=== PATIENT | male | born 1960 | race Asian ===

== ENCOUNTER → 2016-06-05 | Outpatient (CLI) | payer BC ==
[~2016-06-05] MED LIST: ACYC800T57 PO; CELE100C85 PO; FEXO1TAB; FLUC150T17 PO; IBUP-1542 PO; PRED20TA PO; ZOLP10TA PO
[2016-06-05 08:13] LABS: ADD SCAN DIFF NO
[2016-06-05 08:22] LABS: ABNORMAL IP MESSAGE 1; HEMATOCRIT 36.3 % (42.0-52.0); LYMPHOCYTES # 0.4 10^3/ul (0.8-2.9); LYMPHOCYTES % 14.3 % (15.0-51.0); MEAN CORPUSCULAR HEMOGLOBIN 29.9 pg (29.0-33.0); MEAN CORPUSCULAR HGB CONC 33.1 g/dl (32.0-37.0); MEAN CORPUSCULAR VOLUME 90.5 fl (82.0-101.0); MEAN PLATELET VOLUME 8.6 fl (7.4-10.4); MONOCYTE # 0.2 10^3/ul (0.3-0.9); MONOCYTES % 8.9 % (0.0-11.0); NEUTROPHIL # 1.9 10^3/ul (1.6-7.5); NEUTROPHILS % 74.9 % (39.0-77.0); PLATELET COUNT 176 10^3/UL (140-415); RED BLOOD COUNT 4.01 10^6/ul (4.70-6.10); RED CELL DISTRIBUTION WIDTH 13.9 % (11.5-14.5); WHITE BLOOD COUNT 2.6 10^3/ul (4.8-10.8)
[2016-06-05 21:17] LABS: COMPLEMENT C3 43 mg/dl (88-165)
[2016-06-05 21:18] LABS: COMPLEMENT C4 16 mg/dl (14-44)
== END | disposition home or self-care (01) ==
LOC: LAB 07:56
PROVIDERS: ATTEND Internal Medicine Rheumatology
DX: M32.9 Systemic lupus erythematosus, unspecified (principal)
CPT/HCPCS: 85025; 86160; 86226

== ENCOUNTER → 2016-06-13 | Outpatient (CLI) | payer BC ==
[2016-06-13 08:23] LABS: ADD SCAN DIFF NO
[2016-06-13 08:27] LABS: ABNORMAL IP MESSAGE 1; HEMATOCRIT 35.7 % (42.0-52.0); HEMOGLOBIN 11.5 g/dl (14.0-18.0); LYMPHOCYTES # 0.4 10^3/ul (0.8-2.9); MEAN CORPUSCULAR HEMOGLOBIN 28.9 pg (29.0-33.0); MEAN CORPUSCULAR HGB CONC 32.2 g/dl (32.0-37.0); MEAN CORPUSCULAR VOLUME 89.7 fl (82.0-101.0); MONOCYTE # 0.3 10^3/ul (0.3-0.9); MONOCYTES % 13.2 % (0.0-11.0); NEUTROPHIL # 1.3 10^3/ul (1.6-7.5); NEUTROPHILS % 64.4 % (39.0-77.0); PLATELET COUNT 183 10^3/UL (140-415); RED BLOOD COUNT 3.98 10^6/ul (4.70-6.10); RED CELL DISTRIBUTION WIDTH 14.2 % (11.5-14.5); WHITE BLOOD COUNT 2.1 10^3/ul (4.8-10.8)
[2016-06-13 08:30] LABS: ADD UMIC YES; URINE BILIRUBIN (Dip) NEGATIVE (NEGATIVE); URINE BLOOD (Dip) 2+ (NEGATIVE); URINE COLOR LT. YELLOW (YELLOW); URINE GLUCOSE (Dip) NEGATIVE (NEGATIVE); URINE KETONES (Dip) NEGATIVE (NEGATIVE); URINE LEUKOCYTE ESTERASE (Dip) NEGATIVE (NEGATIVE); URINE NITRITE (Dip) NEGATIVE (NEGATIVE); URINE TOTAL PROTEIN (Dip) 2+ (NEGATIVE); URINE UROBILINOGEN (Dip) 0.2 E.U./dL (0.1-1.0)
[2016-06-13 08:51] LABS: BACTERIA,URINE FEW
[2016-06-13 09:37] LABS: CHLORIDE 106 mmol/L (97-110)
[2016-06-13 09:38] LABS: POTASSIUM 4.4 mmol/L (3.5-5.1); SODIUM 142 mmol/L (135-144)
[2016-06-13 09:40] LABS: ALBUMIN/GLOBULIN RATIO 1.07; ALKALINE PHOSPHATASE 93 IU/L (42-121); ANION GAP 11 (8-16); ASPARTATE AMINO TRANSFERASE 45 IU/L (15-46); BILIRUBIN,INDIRECT 0.2 mg/dl (0-1.1); BILIRUBIN,TOTAL 0.2 mg/dl (0.2-1.3); CARBON DIOXIDE 29 mmol/L (21-31); CREATININE 0.93 mg/dl (0.61-1.24); TOTAL PROTEIN 5.8 g/dl (6.1-8.1)
[2016-06-13 09:41] LABS: ALANINE AMINOTRANSFERASE 62 IU/L (13-69); BLOOD UREA NITROGEN 19 mg/dl (7-20); CALCIUM 8.5 mg/dl (8.4-10.2); GLUCOSE 82 mg/dl (70-220)
[2016-06-13 10:50] LABS: COMPLEMENT C3 41 mg/dl (88-165)
[2016-06-13 10:51] LABS: COMPLEMENT C4 17 mg/dl (14-44)
[2016-06-14 13:14] LABS: SCRET 0.93 mg/dl (0.61-1.24)
== END | disposition home or self-care (01) ==
LOC: LAB 07:43
PROVIDERS: ATTEND Specialist
DX: M32.9 Systemic lupus erythematosus, unspecified (principal)
CPT/HCPCS: 80053; 81001; 81003; 82575; 83036; 84156; 84443; 85025; 85613; 85651; 86038; 86140; 86160; 86430; 86803; 87340

== ENCOUNTER → 2016-07-28 | Outpatient (CLI) | payer BC ==
[2016-07-28 07:57] LABS: ADD SCAN DIFF NO
[2016-07-28 08:17] LABS: ABNORMAL IP MESSAGE 1; HEMATOCRIT 32.3 % (42.0-52.0); HEMOGLOBIN 10.5 g/dl (14.0-18.0); LYMPHOCYTES # 0.3 10^3/ul (0.8-2.9); LYMPHOCYTES % 12.2 % (15.0-51.0); MEAN CORPUSCULAR HEMOGLOBIN 30.2 pg (29.0-33.0); MEAN CORPUSCULAR HGB CONC 32.5 g/dl (32.0-37.0); MEAN CORPUSCULAR VOLUME 92.8 fl (82.0-101.0); MEAN PLATELET VOLUME 9.5 fl (7.4-10.4); MONOCYTE # 0.2 10^3/ul (0.3-0.9); MONOCYTES % 6.1 % (0.0-11.0); NEUTROPHIL # 2.1 10^3/ul (1.6-7.5); PLATELET COUNT 156 10^3/UL (140-415); RED BLOOD COUNT 3.48 10^6/ul (4.70-6.10); RED CELL DISTRIBUTION WIDTH 14.7 % (11.5-14.5); WHITE BLOOD COUNT 2.8 10^3/ul (4.8-10.8)
[2016-07-28 08:24] LABS: ALBUMIN 2.7 g/dl (3.3-4.9)
[2016-07-28 08:25] LABS: POTASSIUM 3.5 mmol/L (3.5-5.1)
[2016-07-28 08:27] LABS: BILIRUBIN,INDIRECT 0.2 mg/dl (0-1.1); BILIRUBIN,TOTAL 0.2 mg/dl (0.2-1.3); CREATININE 0.78 mg/dl (0.61-1.24)
[2016-07-28 08:28] LABS: ALBUMIN/GLOBULIN RATIO 0.87; CALCIUM 8.3 mg/dl (8.4-10.2); TOTAL PROTEIN 5.8 g/dl (6.1-8.1)
[2016-07-28 08:30] LABS: C-REACTIVE PROTEIN 0.6 mg/dl (0.0-0.9)
[2016-07-28 08:35] LABS: ADD UMIC YES; URINE BILIRUBIN (Dip) NEGATIVE (NEGATIVE); URINE BLOOD (Dip) 2+ (NEGATIVE); URINE COLOR LT. YELLOW (YELLOW); URINE GLUCOSE (Dip) NEGATIVE (NEGATIVE); URINE KETONES (Dip) NEGATIVE (NEGATIVE); URINE LEUKOCYTE ESTERASE (Dip) NEGATIVE (NEGATIVE); URINE NITRITE (Dip) NEGATIVE (NEGATIVE); URINE TOTAL PROTEIN (Dip) 2+ (NEGATIVE); URINE UROBILINOGEN (Dip) 0.2 E.U./dL (0.1-1.0)
== END | disposition home or self-care (01) ==
LOC: LAB 07:33
PROVIDERS: ATTEND Specialist
DX: M32.9 Systemic lupus erythematosus, unspecified (principal)
CPT/HCPCS: 80053; 81001; 81003; 85025; 85651; 86140

== ENCOUNTER 2016-08-10 13:47 | Inpatient (IN) | payer BC ==
[~2016-08-10] VITALS: Ht 165.1 cm; Wt 68.5 kg
[2016-08-10] MEDS ORDERED: SODIUM CHLORIDE 0.9% 1L BAG IV* STA (15:06)
[2016-08-10] MEDS ORDERED: ACETAMINOPHEN 500 MG TAB PO STA (15:06)
[2016-08-10 15:39] LABS: ADD SCAN DIFF NO
[2016-08-10 15:44] LABS: ABNORMAL IP MESSAGE 1; HEMATOCRIT 29.8 % (42.0-52.0); HEMOGLOBIN 9.8 g/dl (14.0-18.0); MEAN CORPUSCULAR HEMOGLOBIN 30.2 pg (29.0-33.0); MEAN CORPUSCULAR HGB CONC 32.9 g/dl (32.0-37.0); MEAN CORPUSCULAR VOLUME 91.7 fl (82.0-101.0); PLATELET COUNT 135 10^3/UL (140-415); RED BLOOD COUNT 3.25 10^6/ul (4.70-6.10); RED CELL DISTRIBUTION WIDTH 14.5 % (11.5-14.5)
[2016-08-10 15:54] LABS: ADD UMIC YES; URINE BILIRUBIN (Dip) NEGATIVE (NEGATIVE); URINE BLOOD (Dip) 3+ (NEGATIVE); URINE COLOR LT. YELLOW (YELLOW); URINE GLUCOSE (Dip) NEGATIVE (NEGATIVE); URINE KETONES (Dip) NEGATIVE (NEGATIVE); URINE LEUKOCYTE ESTERASE (Dip) NEGATIVE (NEGATIVE); URINE NITRITE (Dip) NEGATIVE (NEGATIVE); URINE TOTAL PROTEIN (Dip) 4+ (NEGATIVE); URINE UROBILINOGEN (Dip) 0.2 E.U./dL (0.1-1.0)
[2016-08-10 16:00] LABS: INR 0.85; PROTIME 11.6 Sec (12.2-14.2); PT RATIO 0.9
[2016-08-10 16:01] LABS: ALBUMIN 2.6 g/dl (3.3-4.9); PARTIAL THROMBOPLASTIN TIME 34.5 Sec (25.0-35.0); POTASSIUM 3.7 mmol/L (3.5-5.1)
[2016-08-10 16:03] LABS: CREATININE 0.93 mg/dl (0.61-1.24)
[2016-08-10 16:04] LABS: ALBUMIN/GLOBULIN RATIO 0.76; BILIRUBIN,INDIRECT 0.3 mg/dl (0-1.1); BILIRUBIN,TOTAL 0.3 mg/dl (0.2-1.3)
[2016-08-10 16:05] LABS: CALCIUM 8.1 mg/dl (8.4-10.2)
[2016-08-10 16:15] LABS: TROPONIN-I 0.015 ng/ml (0.00-0.12)
[2016-08-10 16:17] LABS: BACTERIA,URINE FEW; TRANSITIONAL EPI CELLS,URINE FEW
--- NOTE | 2016-08-10 16:25 | RADRPT ---
PROCEDURE: XR Chest. CLINICAL INDICATION: Sepsis TECHNIQUE: A single AP view of the chest was obtained. COMPARISON: None. FINDINGS: There is a small left pleural effusion with left basilar interstitial opacities. No pneumothorax is seen. The cardiomediastinal silhouette is mildly enlarged. The osseous structures are unremarkabl e. IMPRESSION: 1. Small left pleural effusion with left basilar atelectasis, interstitial edema and / or pneumonia . 2. Mild cardiomegaly. RPTAT: HH .Paula Vela MD, MD Date Time Electronically viewed and signed by .Paula Vela MD, MD on 08/10/2016 16:24 .G/
[2016-08-10 16:42] LABS: LYMPHOCYTES # 0.3 10^3/ul (0.8-2.9); MONOCYTE # 0.1 10^3/ul (0.3-0.9); NEUTROPHIL # 6.7 10^3/ul (1.6-7.5); OVALOCYTES FEW
[2016-08-10] MEDS ORDERED: CEFTRIAXONE 1 GM/50 ML (PMX) 50 ML IVPB STA (16:46)
[2016-08-10] MEDS ORDERED: AZITHROMYCIN 250 MG TAB PO STA (16:46)
[2016-08-10] MEDS ORDERED: SOD CHLORIDE 0.9% 1,000 ML IV SCH (17:10)
[2016-08-10] MEDS ORDERED: ONDANSETRON 4 MG INJ IV PRN (17:30)
[2016-08-10] MEDS ORDERED: ACETAMINOPHEN 325 MG TAB PO PRN (17:30)
--- NOTE | 2016-08-10 17:31 | ERA ---
ER Documentation Chief Complaint Date/Time DATE: 08/10/16 TIME: 17:27 Chief Complaint fever x 3 days h/o lupus HPI This is a 36-year-old male who presents to the emergency room for evaluation of a fever for the past 3 days. This patient does have a history of lupus. According to the this patient has had a fever, she has been giving Tylenol however the fever has not subsided. The patient states he also feels weak and has the chills. He denies any abdominal pain, nausea, vomiting. The patient denies any aggravating or relieving factors for his symptoms and came to the emergency room today for evaluation. This patient does state that his primary care physician is Dr. Mtz, and he was instructed to come to the emergency room for further evaluation of his symptoms. ROS All systems reviewed and are negative except as per history of present illness. Medications Home Meds Active Scripts Zolpidem Tartrate* (Ambien*) 10 Mg Tablet, 10 MG PO QHS Y for INSOMNIA, #15 TAB Prov:CLAUDIA MOORE MD 04/14/15 Prednisone* (Prednisone*) 20 Mg Tab, 20 MG PO DAILY for 10 Days, TAB Prov:CLAUDIA MOORE MD 04/14/15 Ibuprofen* (Motrin*) 600 Mg Tab, 600 MG PO Q8 for PAIN AND/OR INFLAMMATION, #30 TAB Prov:CLAUDIA MOORE MD 04/14/15 Fluconazole* (Diflucan*) 150 Mg Tablet, 150 MG PO ONCE, #1 TAB Prov:CLAUDIA MOORE MD 04/14/15 Acyclovir* (Zovirax*) 800 Mg Tablet, 800 MG PO TID for 7 Days, TAB Prov:CLAUDIA MOORE MD 04/14/15 Reported Medications P-Ephed Hcl/Fexofenadine Hcl (Cary-D 12 Hour Tablet) 1 Tab.sr .12 H Tab.sr.12h, daily 10/25/11 Celecoxib* (Celebrex*) 100 Mg Capsule, PO BID 10/17/11 Allergies Allergies: Coded Allergies: No Known Allergy (Unverified , 10/25/11) PMhx/Soc History of Surgery: No Anesthesia Reaction: No Hx Neurological Disorder: No Hx Respiratory Disorders: No Hx Cardiac Disorders: Yes (HTN) Hx Psychiatric Problems: No Hx Miscellaneous Medical Probl: Yes (lupus) Hx Alcohol Use: No Hx Substance Use: No Hx Tobacco Use: No Physical Exam Vitals Vital Signs Date Time Temp Pulse Resp B/P Pulse Ox O2 Delivery O2 Flow Rate FiO2 08/10/16 13:51 101.4 121 18 132/76 98 Physical Exam INITIAL VITAL SIGNS: Reviewed by me GENERAL: The patient is well developed, warm to touch HEENT: Dry mucous membranes, pupils equal, round, and reactive to light. EOMI. There is no scleral icterus. NECK: C-spine is soft and supple, there is no meningismus. There is no cervical lymphadenopathy. LUNGS: Clear to auscultation bilaterally. There are no rales, wheezes or rhonchi. HEART: Tachycardic, no murmurs, clicks, rubs or gallops. ABDOMEN: Soft, non-tender, non-distended. There are bowel sounds in all four quadrants. No rebound or guarding. EXTREMITIES: There is no peripheral cyanosis or edema. No focal swelling or erythema. NEUROLOGICAL: The patient moves all four extremities with 5/5 strength. Cranial nerves II - XII are intact. Normal gait. Alert and oriented SKIN: There is no apparent rash or petechiae. HEME/LYMPHATIC: There is no evidence of excessive bruising or lymphedema. PSYCHIATRIC: The patient does not appear anxious or depressed. Result Diagram: 08/10/16 1515 08/10/16 1515 Results 24 hrs Laboratory Tests Test 08/10/16 15:08 08/10/16 15:15 Urine Color LT. YELLOW Urine Clarity SLIGHTLY CLOUDY Urine pH 6.0 Urine Specific [place] 1.020 Urine Ketones NEGATIVE Urine Nitrite NEGATIVE Urine Bilirubin NEGATIVE Urine Urobilinogen 0.2 E.U./dL Urine Leukocyte Esterase NEGATIVE Urine Microscopic RBC 10-25/HPF Urine Microscopic WBC 2-5/HPF Urine Transitional Epithelial Cells FEW Urine Amorphous Urates FEW Urine Bacteria FEW Urine Coarse Granular Casts FEW Urine Hemoglobin 3+ Urine Glucose NEGATIVE% Urine Total Protein 4+ White Blood Count 8.010^3/ul Red Blood Count 3.2510^6/ul Hemoglobin 9.8g/dl Hematocrit 29.8% Mean Corpuscular Volume 91.7fl Mean Corpuscular Hemoglobin 30.2pg Mean Corpuscular Hemoglobin Concent 32.9g/dl Red Cell Distribution Width 14.5% Platelet Count 97716^3/UL Mean Platelet Volume 10.0fl Neutrophils % 84.0% Band Neutrophils % 11.0% Lymphocytes % 4.0% Monocytes % 1.0% Eosinophils % % Neutrophils # 6.710^3/ul Lymphocytes # 0.310^3/ul Monocytes # 0.110^3/ul Eosinophils # 10^3/ul Ovalocytes FEW Prothrombin Time 11.6Sec Prothrombin Time Ratio 0.9 INR International Normalized Ratio 0.85 Activated Partial Thromboplast Time 34.5Sec Sodium Level 134mmol/L Potassium Level 3.7mmol/L Chloride Level 101mmol/L Carbon Dioxide Level 24mmol/L Anion Gap 13 Blood Urea Nitrogen 16mg/dl Creatinine 0.93mg/dl Glucose Level 120mg/dl Lactic Acid Level 1.2mmol/L Calcium Level 8.1mg/dl Total Bilirubin 0.3mg/dl Direct Bilirubin 0.00mg/dl Indirect Bilirubin 0.3mg/dl Aspartate Amino Transf (AST/SGOT) 50IU/L Alanine Aminotransferase (ALT/SGPT) 39IU/L Alkaline Phosphatase 102IU/L Troponin I 0.015ng/ml Total Protein 6.0g/dl Albumin 2.6g/dl Globulin 3.40g/dl Albumin/Globulin Ratio 0.76 Current Medications Medications (Trade) Dose Ordered Sig/Marshall Route PRN Reason Start Time Stop Time Status Last Admin Dose Admin Sodium Chloride (NS) 2,120 ml BOLUS OVER 2 HOURS STAT IV* 08/10/16 15:06 08/10/16 15:07 DC 08/10/16 15:37 Acetaminophen (Tylenol Tab) 1,000 mg ONCE STAT PO 08/10/16 15:06 08/10/16 15:07 DC 08/10/16 15:38 Azithromycin 500 mg 500 mg ONCE STAT PO 08/10/16 16:46 08/10/16 16:47 DC 08/10/16 17:03 Ceftriaxone Sodium 50 ml @ 100 mls/hr ONCE STAT IVPB 08/10/16 16:46 08/10/16 17:15 DC 08/10/16 17:06 Sodium Chloride (NS) 1,000 ml @ 125 mls/hr Q8H IV 08/10/16 17:10 08/11/16 01:09 Ondansetron HCl (Zofran Inj) 4 mg BRIDGE ORDER PRN IV NAUSEA AND/OR VOMITING 08/10/16 17:30 5 17:29 Acetaminophen (Tylenol Tab) 650 mg ER BRIDGE PRN PO MILD PAIN/FEVER 08/10/16 17:30 08/11/16 17:29 Procedures/MDM EKG: Rate/Rhythm: Sinus tachycardia QRS, ST, T-waves: [No changes consistent w/ acute ischemia] Impression: [No evidence of ischemia or arrhythmia] Chest X-ray 1V Interpreted by me: Soft Tissue: Left lobe pneumonia Bones: No acute abnormalities Mediastinum/Cardiac Silhouette/Lungs: [No acute abnormalities] This 56-year-old male presents to the emergency room for evaluation of fever, chills, and generalized weakness. This patient does have a history of lupus. When I evaluated this patient he was febrile tachycardic. This patient did have a septic workup initiated in the emergency room. The patient septic workup does show neutrophilic predominance with greater than 10% bands. The patient's chest x-ray does reveal left lobe pneumonia. Given this patient's fever, tachycardia, and neutrophilic bands greater than 10% with a source of infection he does meet sepsis criteria. The patient was given greater than 30 cc/kg of IV normal saline. He was started on Rocephin and azithromycin for community-acquired pneumonia coverage as he has not been in the hospital in the past 3 months. This patient is hemodynamically stable at this time with no need for vasopressors. I have contacted the on-call physician for Dr. Rafael Duvall. He is okay with our plan for admission to the [facility] floor at this time with continued IV antibiotics. Critical Care: Excluding all billable procedures Time: 36 minutes Treatments/Evaluations: Close monitoring and treatment of unstable vital signs, cardiorespiratory, and neurologic status, while maintaining tight balance of fluid, respiratory, and cardiac interventions. Departure Diagnosis: Primary Impression: Sepsis Additional Impressions: Left lower lobe pneumonia SLE (systemic lupus erythematosus) Normocytic anemia Condition: Stable LAYNE ROBBINS DO Aug 10, 2016 17:31
--- NOTE | 2016-08-10 17:45 | RADRPT ---
PROCEDURE: CT Abdomen and Pelvis without contrast. CLINICAL INDICATION: Abdominal pelvic pain. Fevers. TECHNIQUE: CT scan of the abdomen and pelvis without contrast was performed on a multidetector hig h-resolution CT scanner. The patient was scanned without intravenous contrast. Coronal and sagittal reformatted images were obtained from the axial source images. Images were reviewed on a high-resol [email or web address] PACS workstation. The total exam CTDI equals 7.03 mGy and the total exam DLP equals 426.13 mGy -cm. One or more of the following dose reduction techniques were used: - Automated exposure control. - Adjustment of the mA and/or kV according to patient size. - Use of iterative reconstruction technique. COMPARISON: Chest x-ray dated 08/10/2016 FINDINGS: CT abdomen: Large mass-like consolidation is seen in the left lung base. Dense pneumonia is most likely. Under lying neoplasm is considered a less likely possibility. Tiny left basilar pleural effusion is ident ified. There is minor atelectasis in the posterior right lung base as well. The heart size is norm al, without pericardial thickening or effusion. The liver is normal in size and density without foc al mass or intrahepatic biliary dilatation. The spleen is normal in size and homogeneous in density . The stomach is partially collapsed, but is grossly remarkable for mild gastric wall thickening. The pancreas as visualized is normal. The gallbladder and biliary tree are unremarkable and there i s no evidence for biliary dilatation. The adrenal glands are symmetric and normal. The kidneys are symmetrically unremarkable as well. Mild nonspecific stranding and edema surrounding the kidneys is present, likely benign and senescent in nature. No renal calculus or obstructive uro miriam or mass lesion is seen. Minimal fullness of the renal collecting systems is seen bilaterally, extending down into the bladder. The aorta is of normal caliber. Aortic vascular calcifications are present. There is no retroperit jacome lymphadenopathy. Small shoddy nodes are seen scattered throughout the retroperitoneum, not en larged by size criteria. The meaghan hepatis region is clear. The bowel and mesentery, as visualized , are equally unremarkable. CT pelvis: The small bowel loops situated within the pelvis are unremarkable. The appendix is normal. The pel johny organs are remarkable for marked distension of the bladder. The prostate gland and seminal vesi cles are unremarkable. The pelvic sidewalls and inguinal regions are clear. The sigmoid colon and rectum are unremarkable. No mass or adenopathy is seen. No free fluid is present. No acute inflamma tion is identified at this time. The surrounding osseous structures are remarkable for degenerative spondylosis of the spine. No ost eolytic or osteoblastic lesion is detected. IMPRESSION: 1. Distended bladder with elevated bladder pressures transmitted up the upper renal collecting syst ems resulting in mild dilatation of the ureters and renal collecting systems bilaterally. 2. No mass, lymphadenopathy, or focal acute inflammatory process is identified. 3. Dense severe confluent consolidation in the left lung base with a tiny left pleural effusion. F indings are most consistent with left basilar pneumonia. Follow-up is advised. 4. Vascular calcifications consistent with atherosclerosis. RPTAT: HMJB .Rojas Brwon MD, MD Date Time Electronically viewed and signed by .Rojas Brown MD, on 08/10/2016 17:45 .B/
[2016-08-10 18:01] VITALS: TEMP 98.9
[2016-08-11] VITALS (7 sets, daily range): BP systolic 98–152; BP diastolic 59–94; PULSE 110–130; RESP 18–29; Ht 165.1 cm; Wt 68.5 kg
[2016-08-11] MEDS ORDERED: MYCO500T13 PO (01:54)
[2016-08-11] MEDS ORDERED: BENA20TA48 PO (01:54)
[2016-08-11] MEDS ORDERED: ONDANSETRON 4 MG INJ IV PRN ×2 (02:30→03:00)
[2016-08-11] MEDS ORDERED: AZITHROMYCIN 500MG/NS (PMX) 250 ML IVPB SCH (02:30)
[2016-08-11] MEDS ORDERED: CEFTRIAXONE 1 GM/50 ML (PMX) 50 ML IVPB SCH ×2 (02:30→16:00)
[2016-08-11] MEDS: SOD CHLORIDE 0.9% 1,000 ML IV SCH ×3 (02:30→19:25)
[2016-08-11] MEDS: ACETAMINOPHEN 325 MG TAB PO PRN ×3 (06:50→21:07)
[2016-08-11 07:40] LABS: ADD SCAN DIFF NO
[2016-08-11 07:43] LABS: ABNORMAL IP MESSAGE 1; HEMATOCRIT 28.5 % (42.0-52.0); HEMOGLOBIN 9.4 g/dl (14.0-18.0); LYMPHOCYTES # 0.1 10^3/ul (0.8-2.9); LYMPHOCYTES % 2.7 % (15.0-51.0); MEAN CORPUSCULAR HEMOGLOBIN 30.4 pg (29.0-33.0); MEAN CORPUSCULAR VOLUME 92.2 fl (82.0-101.0); MEAN PLATELET VOLUME 9.8 fl (7.4-10.4); MONOCYTE # 0.2 10^3/ul (0.3-0.9); MONOCYTES % 4.2 % (0.0-11.0); NEUTROPHIL # 4.1 10^3/ul (1.6-7.5); PLATELET COUNT 120 10^3/UL (140-415); RED BLOOD COUNT 3.09 10^6/ul (4.70-6.10); RED CELL DISTRIBUTION WIDTH 14.6 % (11.5-14.5); WHITE BLOOD COUNT 4.5 10^3/ul (4.8-10.8)
[2016-08-11 07:46] LABS: NEUTROPHILS % 92.2 % (39.0-77.0)
[2016-08-11 08:08] LABS: CALCIUM 7.2 mg/dl (8.4-10.2); CREATININE 0.79 mg/dl (0.61-1.24); POTASSIUM 3.3 mmol/L (3.5-5.1)
[2016-08-11] MEDS: BENAZEPRIL 20 MG TAB PO SCH (08:21)
[2016-08-11] MEDS: MYCOPHENOLATE 250 MG CAP PO SCH ×2 (08:22→21:07)
--- NOTE | 2016-08-11 08:37 | CONS ---
Date/Time of Note Date/Time of Note DATE: 08/11/16 TIME: 08:22 Assessment/Plan Assessment/Plan Chief Complaint/Hosp Course 1) L base infiltrate with effusion likely pneumonia but a lupus flair with lung involvement is also possible continue with ceftriaxone/azithro recommend stress doses of steroids sputum cx if possible nasal swab for MRSA respiratory viral PCR of nares (flu Ag were neg) check procalcitonin 2) SLE await input from Dr. Rosales check ESR and CRP and DS DNA 3) distended bladder extending to ureters and kidney u/a dose not suggest infection bladder scan has been ordered Problems: Consultation Date/Type/Reason Admit Date/Time Aug 10, 2016 at 17:11 Date of Consultation: August 11, 2016 Type of Consultation: ID Hx of Present Illness 56yo [place] male with 5 yr hx of SLE believes when he was diagnosed he had some lung involvement at that time He has had a dry cough for about a month He was told that his lupus is more active in the last 4 months About 5 days ago he noticed more weakness 4 days ago his cough started to become more wet 3 days ago he developed fevers to 102 which have continued. He denies FREDERICK, CP, rash, dysuria, abd pain, D He denies muscle aches, he has joint achiness from his lupus. No sick contacts Past Medical History SLE, HTN Social History Smoking Status: Never smoker Exam/Review of Systems Vital Signs Vitals Vital Signs Date Time Temp Pulse Resp B/P Pulse Ox O2 Delivery O2 Flow Rate FiO2 08/11/16 07:42 103.5 132 21 137/78 94 08/11/16 00:50 Room Air Intake and Output 08/10/16 08/10/16 08/11/16 15:00 23:00 07:00 Intake Total 840 ml Output Total 500 ml Balance 340 ml Exam Constitutional: alert, oriented Head: normocephalic Eyes: nl sclera ENMT: mucosa pink and moist, other (flat small red macule on upper palate) Neck: supple Respiratory: other (exp wheeze when he coughs, crackles at L base) Cardiovascular: regular rate and rhythm Gastrointestinal: non-tender, soft Extremities: edema (to LE) Neurological: other (non focal) Results Result Diagram: 08/11/16 0702 08/11/16 0702 Results 24 hrs Laboratory Tests Test 08/10/16 15:08 08/10/16 15:15 08/10/16 17:18 08/10/16 19:10 Urine Color LT. YELLOW Urine Clarity SLIGHTLY CLOUDY Urine pH 6.0 Urine Specific [place] 1.020 Urine Ketones NEGATIVE Urine Nitrite NEGATIVE Urine Bilirubin NEGATIVE Urine Urobilinogen 0.2 E.U./dL Urine Leukocyte Esterase NEGATIVE Urine Microscopic RBC 10-25 Urine Microscopic WBC 2-5 Urine Transitional Epithelial Cells FEW Urine Amorphous Urates FEW Urine Bacteria FEW Urine Coarse Granular Casts FEW Urine Hemoglobin 3+ H Urine Glucose NEGATIVE Urine Total Protein 4+ H White Blood Count 8.0 # Red Blood Count 3.25 L Hemoglobin 9.8 L Hematocrit 29.8 L Mean Corpuscular Volume 91.7 Mean Corpuscular Hemoglobin 30.2 Mean Corpuscular Hemoglobin Concent 32.9 Red Cell Distribution Width 14.5 Platelet Count 135 L Mean Platelet Volume 10.0 Neutrophils % 84.0 H Band Neutrophils % 11.0 H Lymphocytes % 4.0 L Monocytes % 1.0 Eosinophils % Neutrophils # 6.7 Lymphocytes # 0.3 L Monocytes # 0.1 L Eosinophils # Ovalocytes FEW Prothrombin Time 11.6 L Prothrombin Time Ratio 0.9 INR International Normalized Ratio 0.85 Activated Partial Thromboplast Time 34.5 Sodium Level 134 L Potassium Level 3.7 Chloride Level 101 Carbon Dioxide Level 24 Anion Gap 13 Blood Urea Nitrogen 16 Creatinine 0.93 Glucose Level 120 Lactic Acid Level 1.2 1.0 0.8 Calcium Level 8.1 L Total Bilirubin 0.3 Direct Bilirubin 0.00 Indirect Bilirubin 0.3 Aspartate Amino Transf (AST/SGOT) 50 H Alanine Aminotransferase (ALT/SGPT) 39 Alkaline Phosphatase 102 Troponin I 0.015 Total Protein 6.0 L Albumin 2.6 L Globulin 3.40 H Albumin/Globulin Ratio 0.76 Test 08/11/16 07:02 White Blood Count 4.5 #L Red Blood Count 3.09 L Hemoglobin 9.4 L Hematocrit 28.5 L Mean Corpuscular Volume 92.2 Mean Corpuscular Hemoglobin 30.4 Mean Corpuscular Hemoglobin Concent 33.0 Red Cell Distribution Width 14.6 H Platelet Count 120 L Mean Platelet Volume 9.8 Neutrophils % 92.2 H Lymphocytes % 2.7 L Monocytes % 4.2 Eosinophils % 0.0 Basophils % 0.0 Nucleated Red Blood Cells % 0.0 Neutrophils # 4.1 Lymphocytes # 0.1 L Monocytes # 0.2 L Eosinophils # 0.0 Basophils # 0.0 Nucleated Red Blood Cells # 0.0 Sodium Level 134 L Potassium Level 3.3 L Chloride Level 109 Carbon Dioxide Level 22 Anion Gap 6 L Blood Urea Nitrogen 13 Creatinine 0.79 Glucose Level 78 # Calcium Level 7.2 L Medications Medications Current Medications Benazepril HCl (Lotensin) 20 mg DAILY PO ; Start 08/11/16 at 09:00 Prednisone (Prednisone) 10 mg DAILY PO ; Start 08/11/16 at 09:00 Zolpidem Tartrate (Ambien) 5 mg QHS PRN PO INSOMNIA; Start 08/11/16 at 02:30 Acetaminophen 650 mg 650 mg Q6H PRN PO PAIN AND OR ELEVATED TEMP Last administered on 08/11/16t 06:50; Admin Dose 650 MG; Start 08/11/16 at 02:30 Sodium Chloride (NS) 1,000 ml @ 75 mls/hr [id number] IV ; Start 08/11/16 at 02:30 Ondansetron HCl 4 mg 4 mg Q6H PRN IV NAUSEA AND/OR VOMITING; Start 08/11/16 at 03:00 Ceftriaxone Sodium 50 ml @ 100 mls/hr Q24H IVPB ; Start 08/11/16 at 16:00 Azithromycin (Zithromax 500mg/ NS (Pmx)) 250 ml @ 250 mls/hr Q24H IVPB ; Start 08/11/16 at 17:00 Mycophenolate Mofetil (Cellcept) 500 mg BID PO ; Start 08/11/16 at 09:00 KARNIA GARCIA MD August 11, 2016 08:32
[2016-08-11] MEDS ORDERED: predniSONE 20 MG TAB PO SCH (09:00)
[2016-08-11] MEDS ORDERED: MYCOPHENOLATE 250 MG CAP PO SCH ×2 (09:00→21:00)
--- NOTE | 2016-08-11 09:18 | PREOPHP ---
DATE OF ADMISSION: 08/10/2016 REASON FOR ADMISSION: Fatigue and fever. HISTORY OF PRESENT ILLNESS: This 56-year-old man was in his usual state of health until last week w hen he developed some fatigue and then 3 days ago a fever. The patient developed chills. His tempe rature at home was as high as 103. The patient was given Tylenol by his ; however, he continued to feel ill and came to the emergency room yesterday. The patient in the emergency room and had a chest x-ray done which did show a small left pleural effusion with left basilar atelectasis, interst itial edema and/or pneumonia. There was mild cardiomegaly. The patient then had a CAT scan of the abdomen and pelvis done which showed a dense severe confluent consolidation in the left lung base wi th tiny left pleural effusions, findings most consistent with left basilar pneumonia. The patient a t this time denies cough, headache, diarrhea, abdominal pain. He does have a history of systemic jenni pus erythematosus and has been on CellCept 1500 mg in the morning and 1000 mg at night. He is also on prednisone. The prednisone was 10 mg a day. The patient has had systemic lupus erythematosus si nce 2011. He has had proteinuria with his disease. He did have a kidney biopsy at [facility] in 2011 and was told that the kidney biopsy was normal. He does have a history of hypertension and has had some intermittent slight leg swelling but none recently. His last 24-hour urine showed 1379 mg of protein per 24 hours. The patient also sees Dr. Ángel Connelly, a local systematic theology professor. T he patient has been evaluated for Mora's in the past including a chest CT scan that was negative. He has had positive double stranded DNA and has been diagnosed as lupus. PAST MEDICAL HISTORY: Remarkable for systemic lupus erythematosus, proteinuria, hypertension. SURGICAL HISTORY: Kidney biopsy in 2011. FAMILY HISTORY: Father diagnosed with heart disease. Father is , diagnosed with heart dise ase. Mother is . The rest of family history is unknown. SOCIAL HISTORY: The patient does not smoke, does not drink alcohol. 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 CURRENT MEDICATIONS: Include: 1. CellCept 1500 mg in the morning, $1000 at night. 2. Prednisone 10 mg a day. 3. Benazepril 209 mg a day. 4. Zyrtec 10 mg a day. 5. Nasonex 2 sprays in each nostril once a day. 6. Fish oil daily. 7. [place] 3 fatty acids daily. 8. Calcium with vitamin D twice a day. 9. Biotin 5000 mcg a day. 10. Zinc 140 mg a day. 11. Aspirin 81 mg a day. 12. Ambien 5 mg at bedtime. REVIEW OF SYSTEMS: CONSTITUTIONAL: Fever and chills. He does have some shoulder pain. OPHTHALMOLOGIC: Negative. EARS, NOSE AND THROAT: Negative. CARDIORESPIRATORY: He denies any chest pain, chest pressure, cough. GASTROINTESTINAL: Negative. NEUROLOGIC: He denies headache or stiff neck. UROLOGIC: He denies dysuria or difficulty urinating. IMPRESSION: 1. Left lower lobe pneumonia on chest x-ray and CAT scan. He has associated fever, chills, white b lood count with shift to the left. He was started on broad-spectrum antibiotics in the emergency ro om including ceftriaxone and azithromycin. He is having some tachycardia and some increased respira tory rate, although he says he is not short of breath and denies chest pain. 2. Systemic lupus erythematosus, on immunosuppressive medication for several years. He has gone in to remission previously. His current episode started at the end of last year. He is also followed up by Dr. Ángel Connelly for this problem. 3. Hypertension. 4. Proteinuria. 5. Insomnia. PLAN: 1. Will draw blood cultures and urine culture at this time. 2. Consultation with infectious disease, rheumatology and pulmonary. 3. Continue current antibiotics. 4. Adjust CellCept dose for now. Will follow and check labs later today, which I have drawn again. Dictated By: JI BLANCO MD, ND/JADYN Conf#: [id number] DID#: [id number]
[2016-08-11 09:34] LABS: BILIRUBIN,INDIRECT 0.1 mg/dl (0-1.1); BILIRUBIN,TOTAL 0.1 mg/dl (0.2-1.3); TOTAL PROTEIN 4.3 g/dl (6.1-8.1)
--- NOTE | 2016-08-11 10:46 | CONS ---
Date/Time of Note Date/Time of Note DATE: 08/11/16 TIME: 10:41 Assessment/Plan Assessment/Plan Additional Assessment/Plan Chest x-ray was reviewed from yesterday which is showing left lower lobe infiltrate. CT abdomen also was reviewed which is showing bilateral mild hydronephrosis with the left upper lobe segmental consolidation. Next Assessment recommendations; next 1. Patient admitted for left lower lobe pneumonia. 2. History of SLE, patient on chronic immunosuppression. 3. History of renal insufficiency in the past status post renal biopsy with normalization of renal function. 4. Hydronephrosis likely a chronic finding. 5. Mild thrombocytopenia. Discontinue Rocephin, switch the patient to cefepime 1 g every 12 hours. Continue Zithromax. Obtain follow-up chest x-ray in 48 hours. No other medications. Consultation Date/Type/Reason Admit Date/Time Aug 10, 2016 at 17:11 Date of Consultation: August 11, 2016 Type of Consultation: Pulmonary Reason for Consultation Pulmonary consultations requested for evaluation of fever and pneumonia. History presenting; patient is a pleasant 56-year-old oriented male who came into the emergency room yesterday with a 2 day history of fever and chills. Patient also has been having some cough since last evening. But denies any body aches myalgias sore throat or dysphagia. Upon evaluation a chest x-ray was done which is showing left lower lobe infiltrate, patient subsequently had a CT of the abdomen which is showing mild hydronephrosis in association with dense left lower lobe segmental consolidation. The patient he was fine until 2 days ago when the symptoms started. Past medical history; 1. Patient with a history of SLE, with renal and pulmonary involvement 5 years ago, status post renal biopsy. 2. Chronic immunosuppression. 3. No history of any pneumonia. 4. No show any other surgeries. Medications; were reviewed. Allergies; none. Social history; no show any smoking, alcohol or drug abuse. Family history; patient , has 1 child, no history of any illnesses in the family. 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 Review of systems; Denies any headache, visual changes, any hearing loss. Any seizures. Any sinus symptoms. Denies any dysphagia, sore throat, chest pain, angina, complains of scant cough without any sputum production. Denies abdominal pain, nausea vomiting. Denies any urinary symptoms. Any edema. Any skin changes. Denies any arthritis symptoms. Denies any weight loss. Denies any night sweats. Denies any recent travel. General exam; middle-aged male, awake alert currently in no distress. Social History Smoking Status: Never smoker Exam/Review of Systems Vital Signs Vitals Vital Signs Date Time Temp Pulse Resp B/P Pulse Ox O2 Delivery O2 Flow Rate FiO2 08/11/16 09:49 101.1 08/11/16 07:42 132 21 137/78 94 08/11/16 00:50 Room Air Intake and Output 08/10/16 08/10/16 08/11/16 15:00 23:00 07:00 Intake Total 840 ml Output Total 500 ml Balance 340 ml Exam HEENT exam; supple neck, no JVD. No lymphadenopathy. Midline trachea. No thyromegaly. No rash. Patient has good dentition. Pharynx is clear. Pupils are midsize and reactive to light. Extraocular movements are intact. No thyromegaly. Chest examination; diminished breath sound left lower lobe. Rest of the lung hopkins are clear to auscultation. S1-S2 audible, no murmurs. Regular rhythm. Abdomen examination; soft, nontender. No organomegaly. Bowel sounds audible. Blackness is inverted. Extremity examination; no peripheral edema. Pulses 1+ bilaterally. There is no clubbing. GRAPHIC ENGINEER examination; cranial nerves are grossly intact, no motor deficit. Results Result Diagram: 08/11/16 0708/11/16 07 Results 24 hrs Laboratory Tests Test 08/10/16 15:08 08/10/16 15:15 08/10/16 17:18 08/10/16 19:10 Urine Color LT. YELLOW Urine Clarity SLIGHTLY CLOUDY Urine pH 6.0 Urine Specific Kaufman 1.020 Urine Ketones NEGATIVE Urine Nitrite NEGATIVE Urine Bilirubin NEGATIVE Urine Urobilinogen 0.2 E.U./dL Urine Leukocyte Esterase NEGATIVE Urine Microscopic RBC 10-25 Urine Microscopic WBC 2-5 Urine Transitional Epithelial Cells FEW Urine Amorphous Urates FEW Urine Bacteria FEW Urine Coarse Granular Casts FEW Urine Hemoglobin 3+ H Urine Glucose NEGATIVE Urine Total Protein 4+ H White Blood Count 8.0 # Red Blood Count 3.25 L Hemoglobin 9.8 L Hematocrit 29.8 L Mean Corpuscular Volume 91.7 Mean Corpuscular Hemoglobin 30.2 Mean Corpuscular Hemoglobin Concent 32.9 Red Cell Distribution Width 14.5 Platelet Count 135 L Mean Platelet Volume 10.0 Neutrophils % 84.0 H Band Neutrophils % 11.0 H Lymphocytes % 4.0 L Monocytes % 1.0 Eosinophils % Neutrophils # 6.7 Lymphocytes # 0.3 L Monocytes # 0.1 L Eosinophils # Ovalocytes FEW Prothrombin Time 11.6 L Prothrombin Time Ratio 0.9 INR International Normalized Ratio 0.85 Activated Partial Thromboplast Time 34.5 Sodium Level 134 L Potassium Level 3.7 Chloride Level 101 Carbon Dioxide Level 24 Anion Gap 13 Blood Urea Nitrogen 16 Creatinine 0.93 Glucose Level 120 Lactic Acid Level 1.2 1.0 0.8 Calcium Level 8.1 L Total Bilirubin 0.3 Direct Bilirubin 0.00 Indirect Bilirubin 0.3 Aspartate Amino Transf (AST/SGOT) 50 H Alanine Aminotransferase (ALT/SGPT) 39 Alkaline Phosphatase 102 Troponin I 0.015 Total Protein 6.0 L Albumin 2.6 L Globulin 3.40 H Albumin/Globulin Ratio 0.76 Test 08/11/16 07:02 White Blood Count 4.5 #L Red Blood Count 3.09 L Hemoglobin 9.4 L Hematocrit 28.5 L Mean Corpuscular Volume 92.2 Mean Corpuscular Hemoglobin 30.4 Mean Corpuscular Hemoglobin Concent 33.0 Red Cell Distribution Width 14.6 H Platelet Count 120 L Mean Platelet Volume 9.8 Neutrophils % 92.2 H Lymphocytes % 2.7 L Monocytes % 4.2 Eosinophils % 0.0 Basophils % 0.0 Nucleated Red Blood Cells % 0.0 Neutrophils # 4.1 Lymphocytes # 0.1 L Monocytes # 0.2 L Eosinophils # 0.0 Basophils # 0.0 Nucleated Red Blood Cells # 0.0 Sodium Level 134 L Potassium Level 3.3 L Chloride Level 109 Carbon Dioxide Level 22 Anion Gap 6 L Blood Urea Nitrogen 13 Creatinine 0.79 Glucose Level 78 # Calcium Level 7.2 L Total Bilirubin 0.1 L Direct Bilirubin 0.00 Indirect Bilirubin 0.1 Aspartate Amino Transf (AST/SGOT) 38 Alanine Aminotransferase (ALT/SGPT) 36 Alkaline Phosphatase 94 Total Protein 4.3 #L Albumin 2.0 L Medications Medications Current Medications Benazepril HCl (Lotensin) 20 mg DAILY PO Last administered on 08/11/16t 08:21; Admin Dose 20 MG; Start 08/11/16 at 09:00 Prednisone (Prednisone) 10 mg DAILY PO Last administered on 08/11/16 08:21; Admin Dose 10 MG; Start 08/11/16 at 09:00 Zolpidem Tartrate (Ambien) 5 mg QHS PRN PO INSOMNIA; Start 08/11/16 at 02:30 Acetaminophen 650 mg 650 mg Q6H PRN PO PAIN AND OR ELEVATED TEMP Last administered on 08/11/16 09:51; Admin Dose 650 MG; Start 08/11/16 at 02:30 Sodium Chloride (NS) 1,000 ml @ 75 mls/hr [id number] IV ; Start 08/11/16 at 02:30 Ondansetron HCl 4 mg 4 mg Q6H PRN IV NAUSEA AND/OR VOMITING; Start 08/11/16 at 03:00 Ceftriaxone Sodium 50 ml @ 100 mls/hr Q24H IVPB ; Start 08/11/16 at 16:00 Azithromycin (Zithromax 500mg/ NS (Pmx)) 250 ml @ 250 mls/hr Q24H IVPB ; Start 08/11/16 at 17:00 Mycophenolate Mofetil (Cellcept) 500 mg BID PO Last administered on 08/11/16 08 :22; Admin Dose 500 MG; Start 08/11/16 at 09:00 CASSANDRA KNOWLES August 11, 2016 10:46
[2016-08-11] MEDS ORDERED: ALBUTEROL/IPRATROPIUM (NEB) 3 ML AMP HHN PRN (11:30)
[2016-08-11] MEDS: CEFEPIME 1GM/50 ML (PMX) 50 ML IVPB SCH ×2 (12:15→21:08)
[2016-08-11 14:23] LABS: PROTEIN/CREAT RATIO 3.01 RATIO
[2016-08-11] MEDS: AZITHROMYCIN 500MG/NS (PMX) 250 ML IVPB SCH (17:37)
--- NOTE | 2016-08-11 17:50 | CONS ---
DATE OF ADMISSION: 08/10/2016 DATE OF CONSULTATION: 08/11/2016 TYPE OF CONSULTATION: Rheumatology. HISTORY OF PRESENT ILLNESS: The patient is a 56-year-old [place]i man with a history of systemic jenni pus with persistent proteinuria. He is being treated with CellCept and prednisone and has been doin g relatively well. Two weeks ago the CellCept was increased from 2000 mg daily to 2500 mg daily, pr ednisone is 10 mg daily. Three days ago, the patient developed fever and cough productive of brownish sputum. Evaluation has shown a left lower lobe probable pneumonia and mild left lower lung field effusion. The patient is being treated with IV p.o. antibiotics and is feeling a little better this morning. He has had colton e myalgias in the past but no recent increase. No recent increase in her arthralgias or joint swell ing. No rash. He does have chronic fatigue. He does have photosensitivity. He has occasional mout h sores when he has an exacerbation of lupus, although not recently. In the past, he has had evaluation for Dominik's including chest CT scan which was negative and ____ which was negative. He does have a positive double stranded DNA. He originally was diagnosed in 01 04 and placed on 60 mg daily of prednisone as well as CellCept 1000 mg b.i.d. He had improved much by the following year and the prednisone was tapered off as well as the CellCept decreased to 500 m g twice a day. He was then well for 2 years until the winter of 2014 when he had a viral syndrome a nd had recurrence of the symptoms and treated with increased CellCept and 40 mg of prednisone. He w as then well on 10 mg of prednisone until March 2016 when the symptoms reexacerbated. In June, he had a 24-hour urine with 1379 mg of protein. His creatinine has been stable and normal and the l atest labs on 07/28/2016 showed a C-reactive protein of 0.6, sedimentation rate was 60. The CellCep t was as mentioned above increased by 500 mg. PAST MEDICAL HISTORY: Positive for the systemic lupus and hypertension. PAST SURGICAL HISTORY: No surgeries. MEDICATIONS PRIOR TO ADMISSION INCLUDED: 1. CellCept at 1500 mg q.a.m., 1000 mg q.p.m. 2. Prednisone 10 mg daily. 3. Benazepril 20 mg daily. 4. Baby aspirin. 5. Calcium b.i.d. 6. Fish oil. 7. Nasonex. 8. Zyrtec. 9. Biotene. 10. Zinc supplement. ALLERGIES: NO KNOWN ALLERGIES. FAMILY HISTORY: Positive for heart disease. SOCIAL HISTORY: He does not smoke and does not drink alcohol. 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 REVIEW OF SYSTEMS: Basically negative except as above. PHYSICAL EXAMINATION: VITAL SIGNS: Temperature 102.2, pulse 129, respiratory rate 21 to 29, blood pressure 106/63, pulse oximetry 93. GENERAL: Well-developed, well-nourished man in no acute distress, alert, oriented x3. SKIN: Without acute rashes or lesions. HEENT: Without acute oral or ocular lesions. NECK: Supple, no lymphadenopathy noted. HEART: With regular sinus rhythm. No murmurs noted. CHEST: Crackles at the left base. ABDOMEN: Soft, no masses or tenderness. NEUROLOGIC: Grossly intact. MUSCULOSKELETAL: Mild upper back and low crab backer trigger points (in the past, joints good range of motion without synovitis.) ASSESSMENT: 1. Pneumonia. 2. Systemic lupus erythematosus with persistent proteinuria on immunosuppression. Does not appear to have an exacerbation at the present. 3. Proteinuria as above. 4. Myalgias chronically likely on a myofascial basis at least in part. He does respond to some loc al trigger point injections.. 5. Leukopenia. His usual white count runs around 2800. On admission, his white count was [address] and today was 4500, likely secondary to the pneumonia. 6. Chronic anemia without definite recent change. 7. Mild thrombocytopenia. PLAN: 1. Continue prednisone at 10 mg daily. 2. Agree with antibiotics. 3. Will discuss with Dr. Otero regarding CellCept dose at present. This was lowered to 500 mg twice a day. Thank you for having me see the patient rheumatologically. Will follow. Dictated By: YASMIN AGUILAR/JADYN Conf#: [id number] DID#: [id number]
[2016-08-11] MEDS ORDERED: VANCOMYCIN IV PER PHARMACY XX SCH (19:30)
[2016-08-11] MEDS ORDERED: VANCOMYCIN 1.5 GM in SOD CHLORIDE 0.9% 250 ML IVPB SCH (21:30)
[2016-08-11] MEDS: HYDROCORTISONE 100 MG INJ IV SCH (22:36)
[2016-08-12] VITALS (12 sets, daily range): BP systolic 114–134; BP diastolic 66–81; PULSE 108–130; RESP 18–24
[2016-08-12] MEDS: HYDROCORTISONE 100 MG INJ IV SCH ×3 (06:28→22:24)
[2016-08-12] MEDS: SOD CHLORIDE 0.9% 1,000 ML IV SCH ×3 (06:28→20:00)
[2016-08-12 06:44] LABS: ADD SCAN DIFF NO
[2016-08-12 06:48] LABS: ABNORMAL IP MESSAGE 1; HEMATOCRIT 28.3 % (42.0-52.0); MEAN CORPUSCULAR HEMOGLOBIN 29.6 pg (29.0-33.0); MEAN CORPUSCULAR HGB CONC 31.8 g/dl (32.0-37.0); MEAN CORPUSCULAR VOLUME 93.1 fl (82.0-101.0); MEAN PLATELET VOLUME 9.7 fl (7.4-10.4); PLATELET COUNT 94 10^3/UL (140-415); RED BLOOD COUNT 3.04 10^6/ul (4.70-6.10); RED CELL DISTRIBUTION WIDTH 14.8 % (11.5-14.5); WHITE BLOOD COUNT 7.5 10^3/ul (4.8-10.8)
[2016-08-12 07:18] LABS: POTASSIUM 3.4 mmol/L (3.5-5.1)
[2016-08-12 07:20] LABS: ALBUMIN/GLOBULIN RATIO 0.71; BILIRUBIN,INDIRECT 0.2 mg/dl (0-1.1); BILIRUBIN,TOTAL 0.2 mg/dl (0.2-1.3); CREATININE 0.96 mg/dl (0.61-1.24); TOTAL PROTEIN 4.8 g/dl (6.1-8.1)
[2016-08-12 07:21] LABS: CALCIUM 6.8 mg/dl (8.4-10.2)
--- NOTE | 2016-08-12 07:44 | CONS ---
Date/Time of Note Date/Time of Note DATE: 08/12/16 TIME: 07:37 Assessment/Plan Assessment/Plan Chief Complaint/Hosp Course 1) L base infiltrate with effusion likely pneumonia but a lupus flair with lung involvement is also possible continue with ceftriaxone/azithro recommend stress doses of steroids sputum cx if possible nasal swab for MRSA respiratory viral PCR of nares (flu Ag were neg) check procalcitonin 08/12 - pulmonary changed ceftriaxone to cefepime, continue with azithro some improvement noted and likely this is bacterial 2) SLE await input from Dr. Rosales check ESR and CRP and DS DNA 08/12 - labs are pending, Dr. Rosales does not believe this is a lupus flair 3) distended bladder extending to ureters and kidney u/a dose not suggest infection bladder scan has been ordered 08/12 - bladder scan had 480cc of urine and rdz was placed urine cx is NGTD 4) GPC and GPR are noted in two separate blood culture sets 08/12 - likely contaminants but on vanco till this is sorted out will repeat blood cx today 5)diarrhea / - will start probiotics and check stool for c.dif no abd pain or distension noted and wbc is improved, less likely this is c.dif Problems: Consultation Date/Type/Reason Admit Date/Time Aug 10, 2016 at 17:11 Initial Consult Date 08/11/16 Type of Consultation: ID 24 HR Interval Summary Free Text/Dictation pt is feeling better today breathing is easier but not able to bring up phlegm he had vomiting yesterday with phlegm in it He also developed diarrhea about 7 times overnight Exam/Review of Systems Vital Signs Vitals Vital Signs Date Time Temp Pulse Resp B/P Pulse Ox O2 Delivery O2 Flow Rate FiO2 08/12/16 04:01 110 08/12/16 04:00 98.4 18 117/74 98 08/11/16 00:50 Room Air Intake and Output 08/11/16 08/11/16 08/12/16 15:00 23:00 07:00 Intake Total 1100 ml 2400 ml Output Total 300 ml 500 ml Balance 800 ml 1900 ml Exam Constitutional: alert, oriented (pt is more communicative and interactive today ) Head: normocephalic Eyes: nl sclera ENMT: other (some red splotches on upper palate) Neck: supple Respiratory: other (L base crackles) Cardiovascular: regular rate and rhythm Gastrointestinal: non-tender, soft Extremities: other (no edema) Results Result Diagram: 08/12/16 0619 08/12/16 0619 Results 24 hrs Laboratory Tests Test 08/11/16 10:00 08/12/16 06:19 Urine Random Creatinine 145.16 Urine Protein/Creatinine Ratio 3.01 Urine Total Protein 437.0 H White Blood Count 7.5 # Red Blood Count 3.04 L Hemoglobin 9.0 L Hematocrit 28.3 L Mean Corpuscular Volume 93.1 Mean Corpuscular Hemoglobin 29.6 Mean Corpuscular Hemoglobin Concent 31.8 L Red Cell Distribution Width 14.8 H Platelet Count 94 #L Mean Platelet Volume 9.7 Neutrophils % Eosinophils % Neutrophils # Eosinophils # Sodium Level 137 Potassium Level 3.4 L Chloride Level 108 Carbon Dioxide Level 22 Anion Gap 10 Blood Urea Nitrogen 19 Creatinine 0.96 Glucose Level Pending Calcium Level Pending Total Bilirubin 0.2 Direct Bilirubin 0.00 Indirect Bilirubin 0.2 Aspartate Amino Transf (AST/SGOT) 61 #H Alanine Aminotransferase (ALT/SGPT) Pending Alkaline Phosphatase 123 H C-Reactive Protein Pending Total Protein 4.8 L Albumin 2.0 L Globulin 2.80 Albumin/Globulin Ratio 0.71 Medications Medications Current Medications Benazepril HCl (Lotensin) 20 mg DAILY PO Last administered on 08/11/16 08:21; Admin Dose 20 MG; Start 08/11/16 at 09:00 Zolpidem Tartrate (Ambien) 5 mg QHS PRN PO INSOMNIA; Start 08/11/16 at 02:30 Acetaminophen (Tylenol Tab) 650 mg Q6H PRN PO PAIN AND OR ELEVATED TEMP Last administered on 08/11/16 21:07; Admin Dose 650 MG; Start 08/11/16 at 02:30 Ondansetron HCl 4 mg 4 mg Q6H PRN IV NAUSEA AND/OR VOMITING Last administered on 08/11/16 21:08; Admin Dose 4 MG; Start 08/11/16 at 03:00 Azithromycin (Zithromax 500mg/ NS (Pmx)) 250 ml @ 250 mls/hr Q24H IVPB Last administered on 08/11/16 17:37; Admin Dose 250 MLS/HR; Start 5/1/17 at 17:00 Mycophenolate Mofetil 500 mg 500 mg BID PO Last administered on 08/11/16 21:07 ; Admin Dose 500 MG; Start 08/11/16 at 09:00 Cefepime HCl (Maxipime 1gm/50 ml (Pmx)) 50 ml @ 100 mls/hr Q12 IVPB Last administered on 08/11/16 21:08; Admin Dose 100 MLS/HR; Start 08/11/16 at 11:30 Hydrocortisone 50 mg 50 mg Q8 IV Last administered on 08/12/16 06:28; Admin Dose 50 MG; Start 08/11/16 at 22:00 Sodium Chloride 1,000 ml @ 120 mls/hr Q8H20M IV Last administered on 08/12/16 06:28; Admin Dose 120 MLS/HR; Start 08/11/16 at 19:00 Vancomycin HCl (Vancocin) 250 ml @ 125 mls/hr Q12H IVPB ; Start 08/12/16 at 09: 00 KARINA GARCIA MD August 12, 2016 07:44
--- NOTE | 2016-08-12 08:07 | CONS ---
Date/Time of Note Date/Time of Note DATE: 08/12/16 TIME: 07:59 Assessment/Plan Assessment/Plan Chief Complaint/Hosp Course 1. fever , he is afebrile today . He feels better , appetite .improved 2. LLL pneumonia , on antibiotics 3. SLE 4. diarrhea , check stool for C difficle 5. anemia , thrombocytopenia . 6. 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 Problems: Consultation Date/Type/Reason Admit Date/Time Aug 10, 2016 at 17:11 Initial Consult Date 08/11/16 Type of Consultation: ID 24 HR Interval Summary Free Text/Dictation He is awake and alert . He is feeling better . He has an appetite . He has had some diarrhea . Constitutional: improved Exam/Review of Systems Vital Signs Vitals Vital Signs Date Time Temp Pulse Resp B/P Pulse Ox O2 Delivery O2 Flow Rate FiO2 08/12/16 07:52 99.7 112 24 134/81 97 08/11/16 00:50 Room Air Intake and Output 08/11/16 08/11/16 08/12/16 15:00 23:00 07:00 Intake Total 1100 ml 2400 ml Output Total 300 ml 500 ml Balance 800 ml 1900 ml Exam Constitutional: alert, oriented, well developed Psych: nl mood/affect, no complaints Respiratory: clear to auscultation, normal air movement Cardiovascular: regular rate and rhythm Gastrointestinal: non-tender, soft Musculoskeletal: nl extremities to inspection Results Result Diagram: 08/12/16 0619 08/12/16 0619 Results 24 hrs Laboratory Tests Test 08/11/16 10:00 08/12/16 06:19 Urine Random Creatinine 145.16 Urine Protein/Creatinine Ratio 3.01 Urine Total Protein 437.0 H White Blood Count 7.5 # Red Blood Count 3.04 L Hemoglobin 9.0 L Hematocrit 28.3 L Mean Corpuscular Volume 93.1 Mean Corpuscular Hemoglobin 29.6 Mean Corpuscular Hemoglobin Concent 31.8 L Red Cell Distribution Width 14.8 H Platelet Count 94 #L Mean Platelet Volume 9.7 Neutrophils % Eosinophils % Neutrophils # Eosinophils # Sodium Level 137 Potassium Level 3.4 L Chloride Level 108 Carbon Dioxide Level 22 Anion Gap 10 Blood Urea Nitrogen 19 Creatinine 0.96 Glucose Level 97 Calcium Level 6.8 L Total Bilirubin 0.2 Direct Bilirubin 0.00 Indirect Bilirubin 0.2 Aspartate Amino Transf (AST/SGOT) 61 #H Alanine Aminotransferase (ALT/SGPT) 42 Alkaline Phosphatase 123 H C-Reactive Protein Pending Total Protein 4.8 L Albumin 2.0 L Globulin 2.80 Albumin/Globulin Ratio 0.71 Medications Medications Current Medications Benazepril HCl (Lotensin) 20 mg DAILY PO Last administered on 08/11/16 08:21; Admin Dose 20 MG; Start 08/11/16 at 09:00 Zolpidem Tartrate (Ambien) 5 mg QHS PRN PO INSOMNIA; Start 08/11/16 at 02:30 Acetaminophen (Tylenol Tab) 650 mg Q6H PRN PO PAIN AND OR ELEVATED TEMP Last administered on 08/11/16 21:07; Admin Dose 650 MG; Start 08/11/16 at 02:30 Ondansetron HCl 4 mg 4 mg Q6H PRN IV NAUSEA AND/OR VOMITING Last administered on 08/11/16 21:08; Admin Dose 4 MG; Start 08/11/16 at 03:00 Azithromycin (Zithromax 500mg/ NS (Pmx)) 250 ml @ 250 mls/hr Q24H IVPB Last administered on 08/11/16 17:37; Admin Dose 250 MLS/HR; Start 08/11/16 at 17:00 Mycophenolate Mofetil 500 mg 500 mg BID PO Last administered on 08/11/16 21:07 ; Admin Dose 500 MG; Start 08/11/16 at 09:00 Cefepime HCl (Maxipime 1gm/50 ml (Pmx)) 50 ml @ 100 mls/hr Q12 IVPB Last administered on 08/11/16 21:08; Admin Dose 100 MLS/HR; Start 08/11/16 at 11:30 Hydrocortisone 50 mg 50 mg Q8 IV Last administered on 08/12/16 06:28; Admin Dose 50 MG; Start 08/11/16 at 22:00 Sodium Chloride 1,000 ml @ 120 mls/hr Q8H20M IV Last administered on 08/12/16 06:28; Admin Dose 120 MLS/HR; Start 08/11/16 at 19:00 Vancomycin HCl (Vancocin) 250 ml @ 125 mls/hr Q12H IVPB ; Start 5/2/17 at 09: 00 Lactobacillus Acidophilus (Florajen3 Capsule) 1 each BID PO ; Start 08/12/16 at 09:00 JI BLANCO MD August 12, 2016 08:07
[2016-08-12] MEDS: CEFEPIME 1GM/50 ML (PMX) 50 ML IVPB SCH (08:58)
[2016-08-12] MEDS: ACETAMINOPHEN 325 MG TAB PO PRN (09:07)
[2016-08-12] MEDS: MYCOPHENOLATE 250 MG CAP PO SCH ×2 (09:07→21:12)
[2016-08-12] MEDS: L ACIDOPHIL/B LACTIS/B LONGUM CAPSULE PO SCH ×2 (09:07→21:19)
[2016-08-12] MEDS: BENAZEPRIL 20 MG TAB PO SCH (09:07)
[2016-08-12] MEDS: POTASSIUM CHLORIDE (SR) 20 MEQ TAB PO SCH ×2 (09:07→21:12)
[2016-08-12 09:49] LABS: MAGNESIUM 1.8 mg/dl (1.7-2.5); PHOSPHORUS 3.9 mg/dl (2.5-4.9)
[2016-08-12] MEDS: VANCOMYCIN 1 GM in NS 250 ML IVPB SCH ×2 (09:52→21:12)
[2016-08-12 11:38] LABS: COMPLEMENT C3 50 mg/dl (88-165); COMPLEMENT C4 31 mg/dl (14-44)
--- NOTE | 2016-08-12 11:43 | CONS ---
Date/Time of Note Date/Time of Note DATE: 08/12/16 TIME: 11:40 Assessment/Plan Assessment/Plan Additional Assessment/Plan Assessment recommendations; 1. Patient admitted for fever discovered to have left lower lobe pneumonia currently on appropriate antibiotic regimen. 2. History of SLE, with history of renal insufficiency in the past with normalization of serum creatinine. 3. Chronic immunosuppression. Continue current treatment. Obtain follow-up chest x-ray in 48 hours. Consultation Date/Type/Reason Admit Date/Time Aug 10, 2016 at 17:11 Initial Consult Date 08/11/16 Type of Consultation: Pulmonary 24 HR Interval Summary Free Text/Dictation Patient condition stable. Remains awake alert. Denies any shortness of breath , chest pain, fever chills. General exam; middle-aged male, awake alert currently in no distress. Exam/Review of Systems Vital Signs Vitals Vital Signs Date Time Temp Pulse Resp B/P Pulse Ox O2 Delivery O2 Flow Rate FiO2 08/12/16 11:36 99.6 111 24 114/66 98 08/12/16 08:10 Nasal Cannula 2.0 Intake and Output 08/11/16 08/11/16 08/12/16 15:00 23:00 07:00 Intake Total 1100 ml 2400 ml Output Total 300 ml 500 ml Balance 800 ml 1900 ml Exam HEENT exam; supple neck, no JVD. No lymphadenopathy. Midline trachea. No thyromegaly. Pharynx is clear. Patient has good dentition. Chest examination; clear to auscultation. S1-S2 audible, no murmurs. Regular rhythm. Abdomen examination; soft, nondistended, no organomegaly. Bowel sounds audible. Extremity exam is; no peripheral edema. SQUAD SERGEANT examination; no focal deficit. Results Result Diagram: 08/12/16 0619 08/12/16 0619 Results 24 hrs Laboratory Tests Test 08/12/16 06:14 08/12/16 06:19 Erythrocyte Sedimentation Rate 114 H White Blood Count 7.5 # Red Blood Count 3.04 L Hemoglobin 9.0 L Hematocrit 28.3 L Mean Corpuscular Volume 93.1 Mean Corpuscular Hemoglobin 29.6 Mean Corpuscular Hemoglobin Concent 31.8 L Red Cell Distribution Width 14.8 H Platelet Count 94 #L Mean Platelet Volume 9.7 Neutrophils % Eosinophils % Neutrophils # Eosinophils # Sodium Level 137 Potassium Level 3.4 L Chloride Level 108 Carbon Dioxide Level 22 Anion Gap 10 Blood Urea Nitrogen 19 Creatinine 0.96 Glucose Level 97 Calcium Level 6.8 L Phosphorus Level 3.9 Magnesium Level 1.8 Total Bilirubin 0.2 Direct Bilirubin 0.00 Indirect Bilirubin 0.2 Aspartate Amino Transf (AST/SGOT) 61 #H Alanine Aminotransferase (ALT/SGPT) 42 Alkaline Phosphatase 123 H C-Reactive Protein Pending Total Protein 4.8 L Albumin 2.0 L Globulin 2.80 Albumin/Globulin Ratio 0.71 Medications Medications Current Medications Benazepril HCl (Lotensin) 20 mg DAILY PO Last administered on 08/12/16 09:07; Admin Dose 20 MG; Start 08/11/16 at 09:00 Zolpidem Tartrate (Ambien) 5 mg QHS PRN PO INSOMNIA; Start 08/11/16 at 02:30 Acetaminophen (Tylenol Tab) 650 mg Q6H PRN PO PAIN AND OR ELEVATED TEMP Last administered on 08/12/16 09:07; Admin Dose 650 MG; Start 08/11/16 at 02:30 Ondansetron HCl 4 mg 4 mg Q6H PRN IV NAUSEA AND/OR VOMITING Last administered on 08/11/16 21:08; Admin Dose 4 MG; Start 08/11/16 at 03:00 Azithromycin (Zithromax 500mg/ NS (Pmx)) 250 ml @ 250 mls/hr Q24H IVPB Last administered on 08/11/16 17:37; Admin Dose 250 MLS/HR; Start 08/11/16 at 17:00 Mycophenolate Mofetil 500 mg 500 mg BID PO Last administered on 08/12/16 09:07 ; Admin Dose 500 MG; Start 08/11/16 at 09:00 Cefepime HCl (Maxipime 1gm/50 ml (Pmx)) 50 ml @ 100 mls/hr Q12 IVPB Last administered on 08/12/16 08:58; Admin Dose 100 MLS/HR; Start 08/11/16 at 11:30 Hydrocortisone 50 mg 50 mg Q8 IV Last administered on 08/12/16 06:28; Admin Dose 50 MG; Start 08/11/16 at 22:00 Sodium Chloride 1,000 ml @ 120 mls/hr Q8H20M IV Last administered on 08/12/16 06:28; Admin Dose 120 MLS/HR; Start 08/11/16 at 19:00 Vancomycin HCl (Vancocin) 250 ml @ 125 mls/hr Q12H IVPB Last administered on 09:52; Admin Dose 125 MLS/HR; Start 08/12/16 at 09:00 Lactobacillus Acidophilus (Florajen3 Capsule) 1 each BID PO Last administered on 08/12/16 09:07; Admin Dose 1 EACH; Start 08/12/16 at 09:00 Potassium Chloride (Klor-Con 20) 20 meq BID PO Last administered on 08/12/16 09 :07; Admin Dose 20 MEQ; Start 08/12/16 at 09:00 CASSANDRA KNOWLES August 12, 2016 11:43
[2016-08-12 13:36] LABS: C-REACTIVE PROTEIN 22.1 mg/dl (0.0-0.9)
[2016-08-12 13:42] LABS: LYMPHOCYTES # 0.2 10^3/ul (0.8-2.9); MONOCYTE # 0.2 10^3/ul (0.3-0.9); NEUTROPHIL # 6.2 10^3/ul (1.6-7.5)
[2016-08-12 13:43] LABS: PLATELET ESTIMATE PLT APPEAR DECREASED
--- NOTE | 2016-08-12 13:51 | CONS ---
Date/Time of Note Date/Time of Note DATE: 08/12/16 TIME: 13:47 Consult Date/Type/Reason Admit Date/Time Aug 10, 2016 at 17:11 Initial Consult Date 08/11/16 Type of Consultation: Rheum Subjective Feeling overall better. Still with low grade fever. Now on Soulcortef 50 mg tid as stress dose. Objective Vital Signs Date Time Temp Pulse Resp B/P Pulse Ox O2 Delivery O2 Flow Rate FiO2 08/12/16 13:04 108 08/12/16 11:36 99.6 24 114/66 98 08/12/16 08:10 Nasal Cannula 2.0 Intake and Output 08/11/16 08/11/16 08/12/16 15:00 23:00 07:00 Intake Total 1100 ml 2400 ml Output Total 300 ml 500 ml Balance 800 ml 1900 ml Results/Medications Result Diagram: 08/12/16 0619 08/12/1619 Results 24 hrs Laboratory Tests Test 08/12/16 06:14 08/12/16 06:19 Erythrocyte Sedimentation Rate 114 H White Blood Count 7.5 # Red Blood Count 3.04 L Hemoglobin 9.0 L Hematocrit 28.3 L Mean Corpuscular Volume 93.1 Mean Corpuscular Hemoglobin 29.6 Mean Corpuscular Hemoglobin Concent 31.8 L Red Cell Distribution Width 14.8 H Platelet Count 94 #L Mean Platelet Volume 9.7 Neutrophils % 82.0 H Band Neutrophils % 14.0 H Lymphocytes % 2.0 L Monocytes % 2.0 Eosinophils % Neutrophils # 6.2 Lymphocytes # 0.2 L Monocytes # 0.2 L Eosinophils # Platelet Estimate PLT APPEAR DECREASED Sodium Level 137 Potassium Level 3.4 L Chloride Level 108 Carbon Dioxide Level 22 Anion Gap 10 Blood Urea Nitrogen 19 Creatinine 0.96 Glucose Level 97 Calcium Level 6.8 L Phosphorus Level 3.9 Magnesium Level 1.8 Total Bilirubin 0.2 Direct Bilirubin 0.00 Indirect Bilirubin 0.2 Aspartate Amino Transf (AST/SGOT) 61 #H Alanine Aminotransferase (ALT/SGPT) 42 Alkaline Phosphatase 123 H C-Reactive Protein 22.1 H Total Protein 4.8 L Albumin 2.0 L Globulin 2.80 Albumin/Globulin Ratio 0.71 Complement C3 50 L Complement C4 31 Medications Current Medications Benazepril HCl (Lotensin) 20 mg DAILY PO Last administered on 08/12/16t 09:07; Admin Dose 20 MG; Start 08/11/16 at 09:00 Zolpidem Tartrate (Ambien) 5 mg QHS PRN PO INSOMNIA; Start 08/11/16 at 02:30 Acetaminophen (Tylenol Tab) 650 mg Q6H PRN PO PAIN AND OR ELEVATED TEMP Last administered on 08/12/16 09:07; Admin Dose 650 MG; Start 08/11/16 at 02:30 Ondansetron HCl 4 mg 4 mg Q6H PRN IV NAUSEA AND/OR VOMITING Last administered on 08/11/16 21:08; Admin Dose 4 MG; Start 08/11/16 at 03:00 Azithromycin (Zithromax 500mg/ NS (Pmx)) 250 ml @ 250 mls/hr Q24H IVPB Last administered on 08/11/16 17:37; Admin Dose 250 MLS/HR; Start 08/11/16 at 17:00 Mycophenolate Mofetil 500 mg 500 mg BID PO Last administered on 08/12/16 09:07 ; Admin Dose 500 MG; Start 08/11/16 at 09:00 Cefepime HCl (Maxipime 1gm/50 ml (Pmx)) 50 ml @ 100 mls/hr Q12 IVPB Last administered on 08/12/16 08:58; Admin Dose 100 MLS/HR; Start 08/11/16 at 11:30 Hydrocortisone 50 mg 50 mg Q8 IV Last administered on 08/12/16 13:28; Admin Dose 50 MG; Start 08/11/16 at 22:00 Sodium Chloride 1,000 ml @ 120 mls/hr Q8H20M IV Last administered on 08/12/16 06:28; Admin Dose 120 MLS/HR; Start 08/11/16 at 19:00 Vancomycin HCl (Vancocin) 250 ml @ 125 mls/hr Q12H IVPB Last administered on 09:52; Admin Dose 125 MLS/HR; Start 08/12/16 at 09:00 Lactobacillus Acidophilus (Florajen3 Capsule) 1 each BID PO Last administered on 08/12/16 09:07; Admin Dose 1 EACH; Start 08/12/16 at 09:00 Potassium Chloride (Klor-Con 20) 20 meq BID PO Last administered on 5/2/17at 09 :07; Admin Dose 20 MEQ; Start 08/12/16 at 09:00 Assessment/Plan Chief Complaint/Hosp Course Ass. 1. Pneumonia 2. SLE relatively stable at present. Doubt Lupus exacerbation. Rec 1. Agree with the increased steroids. 2. Continue on 500 mg bid Cellcept next few days. Problems: YASMIN SHARIF MD August 12, 2016 13:51
[2016-08-12] MEDS: AZITHROMYCIN 500MG/NS (PMX) 250 ML IVPB SCH (16:33)
[2016-08-12] MEDS: ZOLPIDEM 5 MG TAB PO PRN (21:11)
[2016-08-13] VITALS (11 sets, daily range): BP systolic 129–144; BP diastolic 80–93; PULSE 109–115; RESP 18–20
[2016-08-13] MEDS: CEFEPIME 1GM/50 ML (PMX) 50 ML IVPB SCH ×3 (00:50→22:58)
[2016-08-13] MEDS: SOD CHLORIDE 0.9% 1,000 ML IV SCH (04:20)
[2016-08-13] MEDS: HYDROCORTISONE 100 MG INJ IV SCH (05:59)
[2016-08-13 08:02] LABS: ADD SCAN DIFF NO
[2016-08-13 08:09] LABS: ABNORMAL IP MESSAGE 1; HEMOGLOBIN 8.6 g/dl (14.0-18.0); MEAN CORPUSCULAR HEMOGLOBIN 30.3 pg (29.0-33.0); MEAN CORPUSCULAR HGB CONC 33.1 g/dl (32.0-37.0); MEAN CORPUSCULAR VOLUME 91.5 fl (82.0-101.0); MEAN PLATELET VOLUME 9.7 fl (7.4-10.4); PLATELET COUNT 127 10^3/UL (140-415); RED BLOOD COUNT 2.84 10^6/ul (4.70-6.10); RED CELL DISTRIBUTION WIDTH 14.6 % (11.5-14.5); WHITE BLOOD COUNT 6.8 10^3/ul (4.8-10.8)
[2016-08-13] MEDS: POTASSIUM CHLORIDE (SR) 20 MEQ TAB PO SCH ×2 (08:09→18:13)
[2016-08-13] MEDS: MYCOPHENOLATE 250 MG CAP PO SCH ×2 (08:09→21:26)
[2016-08-13] MEDS: BENAZEPRIL 20 MG TAB PO SCH (08:10)
[2016-08-13] MEDS: L ACIDOPHIL/B LACTIS/B LONGUM CAPSULE PO SCH ×2 (08:26→21:26)
[2016-08-13 08:30] LABS: ALBUMIN/GLOBULIN RATIO 0.66; BILIRUBIN,INDIRECT 0.2 mg/dl (0-1.1); BILIRUBIN,TOTAL 0.2 mg/dl (0.2-1.3); CREATININE 1.01 mg/dl (0.61-1.24)
[2016-08-13 08:31] LABS: CALCIUM 6.5 mg/dl (8.4-10.2)
--- NOTE | 2016-08-13 08:37 | RADRPT ---
PROCEDURE: XR Chest. CLINICAL INDICATION: Pneumonia. TECHNIQUE: Single frontal portable chest was obtained. COMPARISON: None. FINDINGS: Cardiac silhouette is mildly enlarged. There is unfolding of the thoracic aorta. Vasculature appear s normal. There is air space consolidation in the left mid lung field and left lower lobe obscuring the left hemidiaphragm. There is a small the medium left pleural effusion. Osseous structures amari ear unremarkable IMPRESSION: 1. Air space consolidation in the left mid and lower lung field suggesting acute pneumonitis. 2. Small the medium left pleural effusion. 3. Cardiomegaly and aortic atherosclerosis. RPTAT: [facility] Physician Althea Date Time Electronically viewed and signed by Physician Althea on 08/13/2016 08:36 /
[2016-08-13 08:46] LABS: POTASSIUM 2.9 mmol/L (3.5-5.1)
--- NOTE | 2016-08-13 09:02 | CONS ---
Date/Time of Note Date/Time of Note DATE: 08/13/16 TIME: 08:52 Assessment/Plan Assessment/Plan Chief Complaint/Hosp Course 1) L base infiltrate with effusion likely pneumonia but a lupus flair with lung involvement is also possible continue with ceftriaxone/azithro recommend stress doses of steroids sputum cx if possible nasal swab for MRSA respiratory viral PCR of nares (flu Ag were neg) check procalcitonin 08/12 - pulmonary changed ceftriaxone to cefepime, continue with azithro some improvement noted and likely this is bacterial / - ESR and CRP are very high and increased from last month C3 levels are low as before with normal C4 DS-DNA results are pending but were above 2000 in may 2016 continue with cefepime/azithro and high dose steroids will check beta d glucan and consider diflucan 2) SLE await input from Dr. Rosales check ESR and CRP and DS DNA 08/12 - labs are pending, Dr. Rosales does not believe this is a lupus flair 08/13 - see above 3) distended bladder extending to ureters and kidney u/a dose not suggest infection bladder scan has been ordered 08/12 - bladder scan had 480cc of urine and rdz was placed urine cx is NGTD 4) GPC and GPR are noted in two separate blood culture sets 08/12 - likely contaminants but on vanco till this is sorted out will repeat blood cx today 08/13 - blood cx grew diptheroids and CoNS these are likely contaminants repeat blood cx remain NGTD 5)diarrhea /2 - will start probiotics and check stool for c.dif no abd pain or distension noted and wbc is improved, less likely this is c.dif Problems: Consultation Date/Type/Reason Admit Date/Time Aug 10, 2016 at 17:11 Initial Consult Date 08/11/16 Type of Consultation: ID [id number] HR Interval Summary Free Text/Dictation pt has some SOB, nasal congestion is present unable to bring phlegm up from chest no N, V, D fevers are better was placed on high dose steroids Exam/Review of Systems Vital Signs Vitals Vital Signs Date Time Temp Pulse Resp B/P Pulse Ox O2 Delivery O2 Flow Rate FiO2 08/13/16 08:09 115 08/13/16 07:48 Nasal Cannula 2.0 08/13/16 06:58 97.9 18 129/81 93 Intake and Output 08/12/16 08/12/16 08/13/16 15:00 23:00 07:00 Intake Total 880 ml 1600 ml Output Total 750 ml Balance 880 ml 850 ml Exam Constitutional: alert, oriented Head: normocephalic ENMT: mucosa pink and moist Respiratory: other (crackles at L base, decrease BS at R) Cardiovascular: regular rate and rhythm Gastrointestinal: non-tender, soft Results Result Diagram: 08/13/16 0740 08/13/16 0740 Results 24 hrs Laboratory Tests Test 08/13/16 07:40 White Blood Count 6.8 Red Blood Count 2.84 L Hemoglobin 8.6 L Hematocrit 26.0 L Mean Corpuscular Volume 91.5 Mean Corpuscular Hemoglobin 30.3 Mean Corpuscular Hemoglobin Concent 33.1 Red Cell Distribution Width 14.6 H Platelet Count 127 #L Mean Platelet Volume 9.7 Neutrophils % Eosinophils % Neutrophils # Eosinophils # Sodium Level 138 Potassium Level 2.9 *L Chloride Level 112 H Carbon Dioxide Level 17 L Anion Gap 12 Blood Urea Nitrogen 23 H Creatinine 1.01 Glucose Level 108 Calcium Level 6.5 L Total Bilirubin 0.2 Direct Bilirubin 0.00 Indirect Bilirubin 0.2 Aspartate Amino Transf (AST/SGOT) 107 #H Alanine Aminotransferase (ALT/SGPT) 57 Alkaline Phosphatase 111 Total Protein 5.0 L Albumin 2.0 L Globulin 3.00 Albumin/Globulin Ratio 0.66 Vancomycin Level Trough 11.4 Medications Medications Current Medications Benazepril HCl (Lotensin) 20 mg DAILY PO Last administered on 08/13/16 08:10; Admin Dose 20 MG; Start 08/11/16 at 09:00 Zolpidem Tartrate (Ambien) 5 mg QHS PRN PO INSOMNIA Last administered on 21:11; Admin Dose 5 MG; Start 08/11/16 at 02:30 Acetaminophen (Tylenol Tab) 650 mg Q6H PRN PO PAIN AND OR ELEVATED TEMP Last administered on 08/12/16 09:07; Admin Dose 650 MG; Start 08/11/16 at 02:30 Ondansetron HCl 4 mg 4 mg Q6H PRN IV NAUSEA AND/OR VOMITING Last administered on 08/11/16 21:08; Admin Dose 4 MG; Start 08/11/16 at 03:00 Azithromycin (Zithromax 500mg/ NS (Pmx)) 250 ml @ 250 mls/hr Q24H IVPB Last administered on 08/12/16 16:33; Admin Dose 250 MLS/HR; Start 08/11/16 at 17:00 Mycophenolate Mofetil 500 mg 500 mg BID PO Last administered on 08/13/16 08:09 ; Admin Dose 500 MG; Start 08/11/16 at 09:00 Cefepime HCl (Maxipime 1gm/50 ml (Pmx)) 50 ml @ 100 mls/hr Q12 IVPB Last administered on 08/13/16 08:09; Admin Dose 100 MLS/HR; Start 08/11/16 at 11:30 Hydrocortisone 50 mg 50 mg Q8 IV Last administered on 08/13/16 05:59; Admin Dose 50 MG; Start 08/11/16 at 22:00 Sodium Chloride 1,000 ml @ 120 mls/hr Q8H20M IV Last administered on 08/13/16 04:20; Admin Dose 120 MLS/HR; Start 08/11/16 at 19:00 Vancomycin HCl (Vancocin) 250 ml @ 125 mls/hr Q12H IVPB Last administered on 21:12; Admin Dose 125 MLS/HR; Start 08/12/16 at 09:00 Lactobacillus Acidophilus (Florajen3 Capsule) 1 each BID PO Last administered on 08/13/16 08:26; Admin Dose 1 EACH; Start 08/12/16 at 09:00 Potassium Chloride (Klor-Con 20) 20 meq BID PO Last administered on 08/13/16 08 :09; Admin Dose 20 MEQ; Start 08/12/16 at 09:00 KARINA GARCIA MD August 13, 2016 09:02
[2016-08-13] MEDS: VANCOMYCIN 1 GM in NS 250 ML IVPB SCH ×2 (09:22→21:25)
[2016-08-13] MEDS ORDERED: POTASSIUM CHLORIDE (SR) 20 MEQ TAB PO STA (10:46)
[2016-08-13] MEDS: NS + KCL 20 MEQ 1,000 ML IV SCH ×2 (11:26→21:00)
[2016-08-13 11:28] LABS: BURR CELLS RARE; LYMPHOCYTES # 0.2 10^3/ul (0.8-2.9); MONOCYTE # 0.1 10^3/ul (0.3-0.9); NEUTROPHIL # 6.3 10^3/ul (1.6-7.5)
--- NOTE | 2016-08-13 13:54 | CONS ---
Date/Time of Note Date/Time of Note DATE: 08/13/16 TIME: 13:33 Consult Date/Type/Reason Admit Date/Time Aug 10, 2016 at 17:11 Initial Consult Date 08/11/16 Type of Consultation: ID Subjective Feels better but continues fatigued. Anxious to go home. On 50 mg tid Solucortef. Objective Vital Signs Date Time Temp Pulse Resp B/P Pulse Ox O2 Delivery O2 Flow Rate FiO2 08/13/16 12:05 111 08/13/16 11:19 98.2 20 132/82 94 08/13/16 07:48 Nasal Cannula 2.0 Intake and Output 08/12/16 08/12/16 08/13/16 15:00 23:00 07:00 Intake Total 880 ml 1600 ml Output Total 750 ml Balance 880 ml 850 ml Exam GENERAL: No acute distress, alert, oriented x3. SKIN: Without acute rashes or lesions. HEENT: Without acute oral or ocular lesions. NECK: Supple, no lymphadenopathy. HEART: With regular sinus rhythm. No murmurs noted. CHEST: Crackles at the left base. More tachypneic ABDOMEN: Soft, no masses or tenderness. NEUROLOGIC: Grossly intact. MUSCULOSKELETAL: No synovitis Results/Medications Result Diagram: 08/13/16 0740 08/13/16 0740 Results 24 hrs Laboratory Tests Test 08/13/16 07:40 White Blood Count 6.8 Red Blood Count 2.84 L Hemoglobin 8.6 L Hematocrit 26.0 L Mean Corpuscular Volume 91.5 Mean Corpuscular Hemoglobin 30.3 Mean Corpuscular Hemoglobin Concent 33.1 Red Cell Distribution Width 14.6 H Platelet Count 127 #L Mean Platelet Volume 9.7 Neutrophils % 93.0 H Band Neutrophils % 2.0 Lymphocytes % 3.0 L Monocytes % 2.0 Eosinophils % Neutrophils # 6.3 Lymphocytes # 0.2 L Monocytes # 0.1 L Eosinophils # Differential Comment MANUAL DIFF Rouleau FEW Sodium Level 138 Potassium Level 2.9 *L Chloride Level 112 H Carbon Dioxide Level 17 L Anion Gap 12 Blood Urea Nitrogen 23 H Creatinine 1.01 Glucose Level 108 Calcium Level 6.5 L Total Bilirubin 0.2 Direct Bilirubin 0.00 Indirect Bilirubin 0.2 Aspartate Amino Transf (AST/SGOT) 107 #H Alanine Aminotransferase (ALT/SGPT) 57 Alkaline Phosphatase 111 Total Protein 5.0 L Albumin 2.0 L Globulin 3.00 Albumin/Globulin Ratio 0.66 Vancomycin Level Trough 11.4 Medications Current Medications Benazepril HCl (Lotensin) 20 mg DAILY PO Last administered on 08/13/16 08:10; Admin Dose 20 MG; Start 08/11/16 at 09:00 Zolpidem Tartrate (Ambien) 5 mg QHS PRN PO INSOMNIA Last administered on 21:11; Admin Dose 5 MG; Start 08/11/16 at 02:30 Acetaminophen (Tylenol Tab) 650 mg Q6H PRN PO PAIN AND OR ELEVATED TEMP Last administered on 08/12/16 09:07; Admin Dose 650 MG; Start 08/11/16 at 02:30 Ondansetron HCl 4 mg 4 mg Q6H PRN IV NAUSEA AND/OR VOMITING Last administered on 08/11/16 21:08; Admin Dose 4 MG; Start 08/11/16 at 03:00 Azithromycin (Zithromax 500mg/ NS (Pmx)) 250 ml @ 250 mls/hr Q24H IVPB Last administered on 08/12/16 16:33; Admin Dose 250 MLS/HR; Start 08/11/16 at 17:00 Mycophenolate Mofetil 500 mg 500 mg BID PO Last administered on 08/13/16 08:09 ; Admin Dose 500 MG; Start 08/11/16 at 09:00 Cefepime HCl (Maxipime 1gm/50 ml (Pmx)) 50 ml @ 100 mls/hr Q12 IVPB Last administered on 08/13/16 08:09; Admin Dose 100 MLS/HR; Start 08/11/16 at 11:30 Hydrocortisone 50 mg 50 mg Q8 IV Last administered on 08/13/16 05:59; Admin Dose 50 MG; Start 08/11/16 at 22:00 Vancomycin HCl (Vancocin) 250 ml @ 125 mls/hr Q12H IVPB Last administered on 09:22; Admin Dose 125 MLS/HR; Start 08/12/16 at 09:00 Lactobacillus Acidophilus (Florajen3 Capsule) 1 each BID PO Last administered on 08/13/16 08:26; Admin Dose 1 EACH; Start 08/12/16 at 09:00 Potassium Chloride 40 meq 40 meq BID PO ; Start 08/13/16 at 21:00 Potassium Chloride/Sodium Chloride (NS-KCl 20 Meq) 1,000 ml @ 100 mls/hr Q10H IV Last administered on 08/13/16t 11:26; Admin Dose 100 MLS/HR; Start 08/13/16 at 11:00 Assessment/Plan Chief Complaint/Hosp Course Ass. 1. Pneumonia Left base 2. Probably SLE relatively stable at present. Doubt Lupus exacerbation. C3 is low, but C4 is normal. 3. Hypokalemia Rec 1. Consider increasing steroid dose as already being covered for infection. 2. Continue on 500 mg bid Cellcept next few days. 3. K+ supplement per Renal. Problems: YASMIN SHARIF MD August 13, 2016 13:43
[2016-08-13] MEDS: METHYLPREDNISOLONE 40 MG INJ IV SCH ×2 (14:04→21:26)
--- NOTE | 2016-08-13 15:55 | RADRPT ---
Echocardiogram Report Patient Name: VARINDER HOFFMANN Gender: Male Date: 1960 Study Date: 13-Aug-2016 Photovoltaic Installer: Emeka Higgins RDCS Location: [id number] Ref. Physician: JI BLANCO Quality: Good Procedures: Transthoracic echocardiogram with complete 2D, M-Mode, and doppler examination. Indications: Shortness of breath. 2D/M Mode Doppler Measurement Value Normal Ranges Measurement Value Normal Ranges LVIDd 2D 5.0 3.5 - 5.6 cm AV Peak Laurent 1.6 m/sec LVIDs 2D 2.3 2.1 - 4.1 cm AV Peak PG 10.1 mmHg LVPWd 2D 1.0 0.6 - 1.1 cm AI Peak PG 58.7 mmHg IVSd 2D 1.1 0.6 - 1.1 cm AI Peak Laurent 3.8 m/sec AoR Diam 2D 3.0 2.0 - 3.7 cm AI PHT 288.6 msec EDV 2D 118.2 cm3 LVOT Peak Laurent 1.2 m/sec ESV 2D 11.7 cm3 LVOT Peak PG 5.8 mmHg LA Dimen 2D 3.3 2.3 - 4.0 cm TR Peak Laurent 3.4 m/sec TR Peak PG 46.5 mmHg RVSP 55.0 mmHg Findings Left Ventricle: Ejection fraction is visually estimated at 55 %. Tissue Doppler/Mitral Doppler indices are indeterminate in this study due to the presence of tachycardia and fusion of E/A waves. Right Ventricle: Normal right ventricular size. Normal right ventricular systolic function. Left Atrium: The left atrium is normal in size. Right Atrium: The right atrium is normal in size. Mitral Valve: Normal appearance of the mitral valve. Mild mitral valve regurgitation. Aortic Valve: Normal appearance of the aortic valve. Trileaflet aortic valve. Trace aortic valve regurgitation. Tricuspid Valve: Normal appearance of the tricuspid valve. Right ventricular systolic pressure is consistent with moderate pulmonary hypertension. Estimated peak PA systolic pressure 50 mmHg. There is mild tricuspid regurgitation. Pulmonic Valve: Pulmonic valve not well visualized. There is trace pulmonic regurgitation. Pericardium: Normal pericardium with no significant pericardial effusion. Aorta: Normal aortic root. IVC: Dilated IVC with respiratory collapse consistent with elevated right atrial pressure. Recommendations: There is no evidence of endocarditis on this TTE study, however given limited sensitivity suggest HERNÁN if there is high clinical suspicion for endocarditis. Conclusions Ejection fraction is visually estimated at 55 %. Tissue Doppler/Mitral Doppler indices are indeterminate in this study due to the presence of tachycardia and fusion of E/A waves. Normal right ventricular size. Normal right ventricular systolic function. Normal appearance of the mitral valve. Mild mitral valve regurgitation. Normal appearance of the aortic valve. Trileaflet aortic valve. Trace aortic valve regurgitation. Normal appearance of the tricuspid valve. Right ventricular systolic pressure is consistent with moderate pulmonary hypertension. Estimated peak PA systolic pressure 50 mmHg. There is mild tricuspid regurgitation. Dilated IVC with respiratory collapse consistent with elevated right atrial pressure. No Vegetation, masses, or thrombi seen. There is no evidence of endocarditis on this TTE study, however given limited sensitivity suggest HERNÁN if there is high clinical suspicion for endocarditis. Electronically Signed By: Iam Matamoros 13-Aug-2016 15:54:46 -0700 Patient Name: VARINDER HOFFMANN Study Date: 13-Aug-2016 [id number]
--- NOTE | 2016-08-13 16:13 | CONS ---
Date/Time of Note Date/Time of Note DATE: 08/13/16 TIME: 16:01 Assessment/Plan Assessment/Plan Chief Complaint/Hosp Course Impression: - fever- likely from underlying pna (pt immunosuppressed) vs. autoimmune etiology. repeat bcx negative and afebrile. no PE findings or echo findings to suggest endocarditis. if bcx positive or persistent fevers may consider HERNÁN as it is more sensitive. - sinus tachy- likely 2/2 underlying inflammatory process - systemic htn- controlled - pulm htn- moderate by echo, may be 2/2 acute pulm process. will need repeat at some point in future after acute issues resolve Recommendations: - cont follow vitals, bcx results - if bcx positive or recurrent/persistent fevers may consider HERNÁN as it is more sensitive for endocarditis - cont acei for bp control as bp/kidney fxn stable Problems: Consultation Date/Type/Reason Admit Date/Time Aug 10, 2016 at 17:11 Date of Consultation: August 13, 2016 Type of Consultation: Cardiology Reason for Consultation Tachycardia, bacteremia Referring Provider: JI BLANCO MD Hx of Present Illness Mr. Coughlin is a 56 yo man without previous cardiac history. He has a hx of SLE on cellcept/prednisone chronically. Pt admitted for 2 day history of fevers, chills Pt had CT here at [facility] showing dense Lower lobe consolidation thought to be pna, started on abx. Pt initial blood cultures grew coag neg staph and GNR. however repeat blood cultures from 08/11, 08/12 are NGTD. Pt states he is without palpitations, dizziness, fainting. No chest pain, mild sob. no pnd, othopnea, edema. States hrs have been fast while he has been ill, but baseline hrs around 70s-80s at home. Denies any change in vision, stroke sx, painful ext, or discoloration of digits. Denies any abd pain, hematemesis or hematochezia. Constitutional: chills, febrile Eyes: no complaints ENT: no complaints Respiratory: no complaints Cardiovascular: no complaints Gastrointestinal: no complaints Genitourinary: no complaints Musculoskeletal: no complaints Skin: no complaints Neurologic: no complaints Endocrine: no complaints Psychological: nl mood/affect, no complaints Past Medical History - SLE, with renal and pulmonary involvement 5 years ago, status post renal biopsy. - Chronic immunosuppression. Past Surgical History renal bx Family History Significant Family History: other (father with h/o MD) Social History Alcohol Use: none Smoking Status: Never smoker Drug Use: none Exam/Review of Systems Vital Signs Vitals Vital Signs Date Time Temp Pulse Resp B/P Pulse Ox O2 Delivery O2 Flow Rate FiO2 08/13/16 12:05 111 08/13/16 11:19 98.2 20 132/82 94 08/13/16 07:48 Nasal Cannula 2.0 Intake and Output 08/12/16 08/12/16 08/13/16 15:00 23:00 07:00 Intake Total 880 ml 1600 ml Output Total 750 ml Balance 880 ml 850 ml Exam Constitutional: alert, oriented Psych: nl mood/affect, no complaints Head: normocephalic Eyes: EOMI, nl conjunctiva, nl lids ENMT: mucosa pink and moist, nl external ears & nose, nl nasal mucosa & septum Neck: non-tender, supple, No jvd Respiratory: other (crackles/wheeze in L base) Cardiovascular: other (tachy, regular, nl s1s2, ii/vi systolic LLSB) Gastrointestinal: nl liver, spleen, non-tender, soft Musculoskeletal: nl extremities to inspection, No joint tenderness Extremities: normal pulses Neurological: RUBBER DOWN II-XII intact, nl mental status, nl speech, nl strength Results Result Diagram: 08/13/16 0740 08/13/16 0740 Results 24 hrs Laboratory Tests Test 08/13/16 07:40 White Blood Count 6.8 Red Blood Count 2.84 L Hemoglobin 8.6 L Hematocrit 26.0 L Mean Corpuscular Volume 91.5 Mean Corpuscular Hemoglobin 30.3 Mean Corpuscular Hemoglobin Concent 33.1 Red Cell Distribution Width 14.6 H Platelet Count 127 #L Mean Platelet Volume 9.7 Neutrophils % 93.0 H Band Neutrophils % 2.0 Lymphocytes % 3.0 L Monocytes % 2.0 Eosinophils % Neutrophils # 6.3 Lymphocytes # 0.2 L Monocytes # 0.1 L Eosinophils # Differential Comment MANUAL DIFF Rouleau FEW Sodium Level 138 Potassium Level 2.9 *L Chloride Level 112 H Carbon Dioxide Level 17 L Anion Gap 12 Blood Urea Nitrogen 23 H Creatinine 1.01 Glucose Level 108 Calcium Level 6.5 L Total Bilirubin 0.2 Direct Bilirubin 0.00 Indirect Bilirubin 0.2 Aspartate Amino Transf (AST/SGOT) 107 #H Alanine Aminotransferase (ALT/SGPT) 57 Alkaline Phosphatase 111 Total Protein 5.0 L Albumin 2.0 L Globulin 3.00 Albumin/Globulin Ratio 0.66 Vancomycin Level Trough 11.4 Medications Medications Current Medications Benazepril HCl (Lotensin) 20 mg DAILY PO Last administered on 08/13/16 08:10; Admin Dose 20 MG; Start 08/11/16 at 09:00 Zolpidem Tartrate (Ambien) 5 mg QHS PRN PO INSOMNIA Last administered on 21:11; Admin Dose 5 MG; Start 08/11/16 at 02:30 Acetaminophen (Tylenol Tab) 650 mg Q6H PRN PO PAIN AND OR ELEVATED TEMP Last administered on 08/12/16 09:07; Admin Dose 650 MG; Start 08/11/16 at 02:30 Ondansetron HCl 4 mg 4 mg Q6H PRN IV NAUSEA AND/OR VOMITING Last administered on 08/11/16 21:08; Admin Dose 4 MG; Start 08/11/16 at 03:00 Azithromycin (Zithromax 500mg/ NS (Pmx)) 250 ml @ 250 mls/hr Q24H IVPB Last administered on 08/12/16 16:33; Admin Dose 250 MLS/HR; Start 08/11/16 at 17:00 Mycophenolate Mofetil 500 mg 500 mg BID PO Last administered on 08/13/16 08:09 ; Admin Dose 500 MG; Start 08/11/16 at 09:00 Cefepime HCl 50 ml @ 100 mls/hr Q12 IVPB Last administered on 08/13/16 08:09; Admin Dose 100 MLS/HR; Start 08/11/16 at 11:30 Vancomycin HCl (Vancocin) 250 ml @ 125 mls/hr Q12H IVPB Last administered on 09:22; Admin Dose 125 MLS/HR; Start 08/12/16 at 09:00 Lactobacillus Acidophilus 1 each 1 each BID PO Last administered on 08/13/16 08 :26; Admin Dose 1 EACH; Start 08/12/16 at 09:00 Potassium Chloride/Sodium Chloride (NS-KCl 20 Meq) 1,000 ml @ 50 mls/hr Q20H IV Last administered on 08/13/16 11:26; Admin Dose 100 MLS/HR; Start 08/13/16 at 11:00 Potassium Chloride (Klor-Con 20) 40 meq TID PO ; Start 08/13/16 at 21:00 Methylprednisolone Sodium Succinate (Solu-Medrol) 30 mg Q12 IV Last administered on 08/13/16 14:04; Admin Dose 30 MG; Start 08/13/16 at 14:00 Procedures Procedures EKG: sinus tachycardia tele reviewed sinus tachycardia CXR images reviewed LLL consolidation. with effusion CT chest/abd report reviewed 1. Distended bladder with elevated bladder pressures transmitted up the upper renal collecting systems resulting in mild dilatation of the ureters and renal collecting systems bilaterally. 2. No mass, lymphadenopathy, or focal acute inflammatory process is identified. 3. Dense severe confluent consolidation in the left lung base with a tiny left pleural effusion. Findings are most consistent with left basilar pneumonia. Follow-up is advised. 4. Vascular calcifications consistent with atherosclerosis. [facility]. August 13, 2016 16:12
[2016-08-13] MEDS: AZITHROMYCIN 500MG/NS (PMX) 250 ML IVPB SCH (16:48)
[2016-08-13] MEDS ORDERED: POTASSIUM CHLORIDE (SR) 20 MEQ TAB PO SCH (21:00)
[2016-08-14] VITALS (13 sets, daily range): BP systolic 132–141; BP diastolic 86–91; PULSE 84–122; RESP 16–20
[2016-08-14] MEDS: NS + KCL 20 MEQ 1,000 ML IV SCH (05:22)
[2016-08-14 07:21] LABS: ADD SCAN DIFF NO
[2016-08-14 07:32] LABS: ABNORMAL IP MESSAGE 1; HEMATOCRIT 27.4 % (42.0-52.0); HEMOGLOBIN 8.8 g/dl (14.0-18.0); LYMPHOCYTES # 0.1 10^3/ul (0.8-2.9); MEAN CORPUSCULAR HEMOGLOBIN 29.7 pg (29.0-33.0); MEAN CORPUSCULAR HGB CONC 32.1 g/dl (32.0-37.0); MEAN CORPUSCULAR VOLUME 92.6 fl (82.0-101.0); MEAN PLATELET VOLUME 9.9 fl (7.4-10.4); MONOCYTE # 0.3 10^3/ul (0.3-0.9); MONOCYTES % 8.9 % (0.0-11.0); NEUTROPHILS % 85.4 % (39.0-77.0); PLATELET COUNT 146 10^3/UL (140-415); RED BLOOD COUNT 2.96 10^6/ul (4.70-6.10); WHITE BLOOD COUNT 3.5 10^3/ul (4.8-10.8)
[2016-08-14 07:57] LABS: ALBUMIN 2.1 g/dl (3.3-4.9); POTASSIUM 3.9 mmol/L (3.5-5.1)
[2016-08-14 07:59] LABS: CREATININE 1.04 mg/dl (0.61-1.24)
[2016-08-14 08:00] LABS: ALBUMIN/GLOBULIN RATIO 0.67; BILIRUBIN,INDIRECT 0.1 mg/dl (0-1.1); BILIRUBIN,TOTAL 0.1 mg/dl (0.2-1.3); CALCIUM 6.6 mg/dl (8.4-10.2); TOTAL PROTEIN 5.2 g/dl (6.1-8.1)
[2016-08-14] MEDS: METHYLPREDNISOLONE 40 MG INJ IV SCH ×2 (08:58→21:12)
[2016-08-14] MEDS: BENAZEPRIL 20 MG TAB PO SCH (08:59)
[2016-08-14] MEDS: POTASSIUM CHLORIDE (SR) 20 MEQ TAB PO SCH ×2 (08:59→21:12)
[2016-08-14] MEDS: MYCOPHENOLATE 250 MG CAP PO SCH ×2 (08:59→21:13)
[2016-08-14] MEDS: VANCOMYCIN 1 GM in NS 250 ML IVPB SCH ×2 (09:00→21:13)
[2016-08-14] MEDS: L ACIDOPHIL/B LACTIS/B LONGUM CAPSULE PO SCH ×2 (09:01→21:19)
--- NOTE | 2016-08-14 10:02 | PN ---
Date/Time of Note Date/Time of Note DATE: 08/14/16 TIME: 09:55 Assessment/Plan VTE Prophylaxis VTE Prophylaxis Intervention: ambulation, SCD's Lines/Catheters IV Catheter Type (from Nrs): Peripheral IV Urinary Cath still in place: Yes Reason Cath still needed: urinary retention Assessment/Plan Chief Complaint/Hosp Course 1. fever , he is afebrile today . He feels better , appetite .improved 2. LLL pneumonia , on antibiotics , he is very weak and still SOB 3. SLE 4. diarrhea , stool for C difficle was negative 5. anemia , thrombocytopenia . 6. he was growing staph and diptheroids in blood cultures done on admission , probably contaminants . ; however , repeat BC show no growth . Problems: Subjective 24 Hr Interval Summary Free Text/Dictation He says that he is feeling better ; however , he is tachypneic when he talks . Constitutional: no complaints Respiratory: shortness of breath Cardiovascular: no complaints Skin: no complaints Lymphatic: no complaints Exam/Review of Systems Vital Signs Vitals Vital Signs Date Time Temp Pulse Resp B/P Pulse Ox O2 Delivery O2 Flow Rate FiO2 08/14/16 08:11 109 08/14/16 07:31 98.5 16 141/91 96 08/14/16 04:56 1.0 08/13/16 20:30 Nasal Cannula Intake and Output 08/13/16 08/13/16 08/14/16 15:00 23:00 07:00 Intake Total 300 ml 500 ml 500 ml Output Total 900 ml 1000 ml Balance 300 ml -400 ml -500 ml Exam Constitutional: alert Respiratory: diminished breath sounds Cardiovascular: regular rate and rhythm Gastrointestinal: soft Musculoskeletal: nl extremities to inspection Results Result Diagram: 08/14/16 0650 08/14/16 0650 Results 24 hrs Laboratory Tests Test 08/13/16 16:30 08/14/16 06:50 Potassium Level 3.1 L 3.9 Magnesium Level 2.0 White Blood Count 3.5 #L Red Blood Count 2.96 L Hemoglobin 8.8 L Hematocrit 27.4 L Mean Corpuscular Volume 92.6 Mean Corpuscular Hemoglobin 29.7 Mean Corpuscular Hemoglobin Concent 32.1 Red Cell Distribution Width 15.0 H Platelet Count 146 Mean Platelet Volume 9.9 Neutrophils % 85.4 H Lymphocytes % 4.0 L Monocytes % 8.9 Eosinophils % 0.0 Basophils % 0.0 Nucleated Red Blood Cells % 0.0 Neutrophils # 3.0 Lymphocytes # 0.1 L Monocytes # 0.3 Eosinophils # 0.0 Basophils # 0.0 Nucleated Red Blood Cells # 0.0 Sodium Level 141 Chloride Level 116 H Carbon Dioxide Level 19 L Anion Gap 10 Blood Urea Nitrogen 28 H Creatinine 1.04 Glucose Level 109 Calcium Level 6.6 L Total Bilirubin 0.1 L Direct Bilirubin 0.00 Indirect Bilirubin 0.1 Aspartate Amino Transf (AST/SGOT) 225 #H Alanine Aminotransferase (ALT/SGPT) 131 H Alkaline Phosphatase 144 H Total Protein 5.2 L Albumin 2.1 L Globulin 3.10 Albumin/Globulin Ratio 0.67 Medications Medications Current Medications Benazepril HCl (Lotensin) 20 mg DAILY PO Last administered on 08/14/16 08:59; Admin Dose 20 MG; Start 08/11/16 at 09:00 Zolpidem Tartrate (Ambien) 5 mg QHS PRN PO INSOMNIA Last administered on 21:11; Admin Dose 5 MG; Start 08/11/16 at 02:30 Acetaminophen (Tylenol Tab) 650 mg Q6H PRN PO PAIN AND OR ELEVATED TEMP Last administered on 08/12/16 09:07; Admin Dose 650 MG; Start 08/11/16 at 02:30 Ondansetron HCl 4 mg 4 mg Q6H PRN IV NAUSEA AND/OR VOMITING Last administered on 08/11/16 21:08; Admin Dose 4 MG; Start 08/11/16 at 03:00 Azithromycin (Zithromax 500mg/ NS (Pmx)) 250 ml @ 250 mls/hr Q24H IVPB Last administered on 08/13/16 16:48; Admin Dose 250 MLS/HR; Start 08/11/16 at 17:00 Mycophenolate Mofetil 500 mg 500 mg BID PO Last administered on 08/14/16 08:59 ; Admin Dose 500 MG; Start 08/11/16 at 09:00 Cefepime HCl 50 ml @ 100 mls/hr Q12 IVPB Last administered on 08/13/16 22:58; Admin Dose 100 MLS/HR; Start 08/11/16 at 11:30 Vancomycin HCl (Vancocin) 250 ml @ 125 mls/hr Q12H IVPB Last administered on 09:00; Admin Dose 125 MLS/HR; Start 08/12/16 at 09:00 Lactobacillus Acidophilus (Florajen3 Capsule) 1 each BID PO Last administered on 08/14/16 09:01; Admin Dose 1 EACH; Start 08/12/16 at 09:00 Methylprednisolone Sodium Succinate (Solu-Medrol) 30 mg Q12 IV Last administered on 08/14/16 08:58; Admin Dose 30 MG; Start 08/13/16 at 14:00 Potassium Chloride (Klor-Con 20) 40 meq BID PO ; Start 08/14/16 at 21:00; Status UNV JI BLANCO MD August 14, 2016 10:02
[2016-08-14] MEDS: CEFEPIME 1GM/50 ML (PMX) 50 ML IVPB SCH ×2 (10:05→21:13)
--- NOTE | 2016-08-14 11:37 | CONS ---
Date/Time of Note Date/Time of Note DATE: 08/14/16 TIME: 11:33 Assessment/Plan Assessment/Plan Chief Complaint/Hosp Course 1) L base infiltrate with effusion likely pneumonia but a lupus flair with lung involvement is also possible continue with ceftriaxone/azithro recommend stress doses of steroids sputum cx if possible nasal swab for MRSA respiratory viral PCR of nares (flu Ag were neg) check procalcitonin 08/12 - pulmonary changed ceftriaxone to cefepime, continue with azithro some improvement noted and likely this is bacterial 08/13 - ESR and CRP are very high and increased from last month C3 levels are low as before with normal C4 DS-DNA results are pending but were above 2000 in may 2016 continue with cefepime/azithro and high dose steroids will check beta d glucan and consider diflucan 08/14 - improved fever with steroids if pt continues to improve will change antibiotics to po vantin/doxy tomorrow 2) SLE await input from Dr. Rosales check ESR and CRP and DS DNA 08/12 - labs are pending, Dr. Rosales does not believe this is a lupus flair 08/13 - see above 08/14 - DS DNA is still pending 3) distended bladder extending to ureters and kidney u/a dose not suggest infection bladder scan has been ordered 08/12 - bladder scan had 480cc of urine and rdz was placed urine cx is NGTD 4) GPC and GPR are noted in two separate blood culture sets / - likely contaminants but on vanco till this is sorted out will repeat blood cx today 08/13 - blood cx grew diptheroids and CoNS these are likely contaminants repeat blood cx remain NGTD 5)diarrhea 5/2 - will start probiotics and check stool for c.dif no abd pain or distension noted and wbc is improved, less likely this is c.dif / - c.dif was negative Problems: Consultation Date/Type/Reason Admit Date/Time Aug 10, 2016 at 17:11 Initial Consult Date 08/11/16 Type of Consultation: ID Referring Provider: JI BLANCO MD 24 HR Interval Summary Free Text/Dictation pt states breathing is a bit better no N, V still has loose stools but no frequent no more fevers Exam/Review of Systems Vital Signs Vitals Vital Signs Date Time Temp Pulse Resp B/P Pulse Ox O2 Delivery O2 Flow Rate FiO2 08/14/16 11:32 98.4 115 18 133/88 97 08/14/16 07:57 Nasal Cannula 2.0 Intake and Output 08/13/16 08/13/16 08/14/16 15:00 23:00 07:00 Intake Total 300 ml 500 ml 500 ml Output Total 900 ml 1000 ml Balance 300 ml -400 ml -500 ml Exam Constitutional: alert, oriented Eyes: nl sclera ENMT: mucosa pink and moist Respiratory: other (decreased BS at L base) Cardiovascular: regular rate and rhythm Gastrointestinal: non-tender, soft Results Result Diagram: 08/14/16 0650 08/14/16 0650 Results 24 hrs Laboratory Tests Test 08/13/16 16:30 08/14/16 06:50 Potassium Level 3.1 L 3.9 Magnesium Level 2.0 White Blood Count 3.5 #L Red Blood Count 2.96 L Hemoglobin 8.8 L Hematocrit 27.4 L Mean Corpuscular Volume 92.6 Mean Corpuscular Hemoglobin 29.7 Mean Corpuscular Hemoglobin Concent 32.1 Red Cell Distribution Width 15.0 H Platelet Count 146 Mean Platelet Volume 9.9 Neutrophils % 85.4 H Lymphocytes % 4.0 L Monocytes % 8.9 Eosinophils % 0.0 Basophils % 0.0 Nucleated Red Blood Cells % 0.0 Neutrophils # 3.0 Lymphocytes # 0.1 L Monocytes # 0.3 Eosinophils # 0.0 Basophils # 0.0 Nucleated Red Blood Cells # 0.0 Sodium Level 141 Chloride Level 116 H Carbon Dioxide Level 19 L Anion Gap 10 Blood Urea Nitrogen 28 H Creatinine 1.04 Glucose Level 109 Calcium Level 6.6 L Total Bilirubin 0.1 L Direct Bilirubin 0.00 Indirect Bilirubin 0.1 Aspartate Amino Transf (AST/SGOT) 225 #H Alanine Aminotransferase (ALT/SGPT) 131 H Alkaline Phosphatase 144 H Total Protein 5.2 L Albumin 2.1 L Globulin 3.10 Albumin/Globulin Ratio 0.67 Medications Medications Current Medications Benazepril HCl (Lotensin) 20 mg DAILY PO Last administered on 08/14/16 08:59; Admin Dose 20 MG; Start 08/11/16 at 09:00 Zolpidem Tartrate (Ambien) 5 mg QHS PRN PO INSOMNIA Last administered on 21:11; Admin Dose 5 MG; Start 08/11/16 at 02:30 Acetaminophen (Tylenol Tab) 650 mg Q6H PRN PO PAIN AND OR ELEVATED TEMP Last administered on 08/12/16 09:07; Admin Dose 650 MG; Start 08/11/16 at 02:30 Ondansetron HCl 4 mg 4 mg Q6H PRN IV NAUSEA AND/OR VOMITING Last administered on 08/11/16 21:08; Admin Dose 4 MG; Start 08/11/16 at 03:00 Azithromycin (Zithromax 500mg/ NS (Pmx)) 250 ml @ 250 mls/hr Q24H IVPB Last administered on 08/13/16 16:48; Admin Dose 250 MLS/HR; Start 08/11/16 at 17:00 Mycophenolate Mofetil 500 mg 500 mg BID PO Last administered on 08/14/16 08:59 ; Admin Dose 500 MG; Start 08/11/16 at 09:00 Cefepime HCl 50 ml @ 100 mls/hr Q12 IVPB Last administered on 08/14/16 10:05; Admin Dose 100 MLS/HR; Start 08/11/16 at 11:30 Vancomycin HCl (Vancocin) 250 ml @ 125 mls/hr Q12H IVPB Last administered on 09:00; Admin Dose 125 MLS/HR; Start 08/12/16 at 09:00 Lactobacillus Acidophilus (Florajen3 Capsule) 1 each BID PO Last administered on 08/14/16 09:01; Admin Dose 1 EACH; Start 08/12/16 at 09:00 Methylprednisolone Sodium Succinate (Solu-Medrol) 30 mg Q12 IV Last administered on 08/14/16 08:58; Admin Dose 30 MG; Start 08/13/16 at 14:00 Potassium Chloride (Klor-Con 20) 40 meq BID PO ; Start 08/14/16 at 21:00 KARINA GARCIA MD August 14, 2016 11:37
--- NOTE | 2016-08-14 12:43 | CONS ---
Date/Time of Note Date/Time of Note DATE: 08/14/16 TIME: 12:42 Assessment/Plan Assessment/Plan Additional Assessment/Plan Chest x-ray was reviewed from yesterday which is showing what appears to be left pleural effusion. Assessment recommendations; 1. Patient admitted for left lower lobe pneumonia currently on broad-spectrum antibiotic coverage. 2. History of SLE, patient on chronic immunosuppression. 3. History of renal involvement with normalization of renal function. 4. Left pleural effusion. Continue current treatment. Schedule ultrasound-guided left thoracentesis. Consultation Date/Type/Reason Admit Date/Time Aug 10, 2016 at 17:11 Initial Consult Date 08/11/16 Type of Consultation: Pulmonary Referring Provider: JI BLANCO MD 24 HR Interval Summary Free Text/Dictation Patient condition is stable. Denies any shortness of breath, fever chills chest pain or sputum production. General exam; middle-aged male, awake alert currently in no distress. Exam/Review of Systems Vital Signs Vitals Vital Signs Date Time Temp Pulse Resp B/P Pulse Ox O2 Delivery O2 Flow Rate FiO2 08/14/16 12:04 122 08/14/16 11:32 98.4 18 133/88 97 08/14/16 07:57 Nasal Cannula 2.0 Intake and Output 08/13/16 08/13/16 08/14/16 15:00 23:00 07:00 Intake Total 300 ml 500 ml 500 ml Output Total 900 ml 1000 ml Balance 300 ml -400 ml -500 ml Exam HEENT exam is; supple neck, no JVD. No lymphadenopathy. Midline trachea. No thyromegaly. Pharynx is clear. Patient has fair dentition. Chest examination; decreased breath sound left lower lobe with crackles. Right lung and left upper lobes are clear. S1-S2 audible, no murmurs. Regular rhythm. Abdomen examination; soft, non-distended. No organomegaly. Bowel sounds audible. Extremity examination; no peripheral edema. BALANCE CLERK examination; no focal deficit. Results Result Diagram: 08/14/16 0650 08/14/16 0650 Results 24 hrs Laboratory Tests Test 08/13/16 16:30 08/14/16 06:50 Potassium Level 3.1 L 3.9 Magnesium Level 2.0 White Blood Count 3.5 #L Red Blood Count 2.96 L Hemoglobin 8.8 L Hematocrit 27.4 L Mean Corpuscular Volume 92.6 Mean Corpuscular Hemoglobin 29.7 Mean Corpuscular Hemoglobin Concent 32.1 Red Cell Distribution Width 15.0 H Platelet Count 146 Mean Platelet Volume 9.9 Neutrophils % 85.4 H Lymphocytes % 4.0 L Monocytes % 8.9 Eosinophils % 0.0 Basophils % 0.0 Nucleated Red Blood Cells % 0.0 Neutrophils # 3.0 Lymphocytes # 0.1 L Monocytes # 0.3 Eosinophils # 0.0 Basophils # 0.0 Nucleated Red Blood Cells # 0.0 Sodium Level 141 Chloride Level 116 H Carbon Dioxide Level 19 L Anion Gap 10 Blood Urea Nitrogen 28 H Creatinine 1.04 Glucose Level 109 Calcium Level 6.6 L Total Bilirubin 0.1 L Direct Bilirubin 0.00 Indirect Bilirubin 0.1 Aspartate Amino Transf (AST/SGOT) 225 #H Alanine Aminotransferase (ALT/SGPT) 131 H Alkaline Phosphatase 144 H Total Protein 5.2 L Albumin 2.1 L Globulin 3.10 Albumin/Globulin Ratio 0.67 Medications Medications Current Medications Benazepril HCl (Lotensin) 20 mg DAILY PO Last administered on 08/14/16 08:59; Admin Dose 20 MG; Start 08/11/16 at 09:00 Zolpidem Tartrate (Ambien) 5 mg QHS PRN PO INSOMNIA Last administered on 21:11; Admin Dose 5 MG; Start 08/11/16 at 02:30 Acetaminophen (Tylenol Tab) 650 mg Q6H PRN PO PAIN AND OR ELEVATED TEMP Last administered on 08/12/16 09:07; Admin Dose 650 MG; Start 08/11/16 at 02:30 Ondansetron HCl 4 mg 4 mg Q6H PRN IV NAUSEA AND/OR VOMITING Last administered on 08/11/16 21:08; Admin Dose 4 MG; Start 08/11/16 at 03:00 Azithromycin (Zithromax 500mg/ NS (Pmx)) 250 ml @ 250 mls/hr Q24H IVPB Last administered on 08/13/16 16:48; Admin Dose 250 MLS/HR; Start 08/11/16 at 17:00 Mycophenolate Mofetil 500 mg 500 mg BID PO Last administered on 08/14/16 08:59 ; Admin Dose 500 MG; Start 5/1/17 at 09:00 Cefepime HCl 50 ml @ 100 mls/hr Q12 IVPB Last administered on 08/14/16 10:05; Admin Dose 100 MLS/HR; Start 08/11/16 at 11:30 Vancomycin HCl (Vancocin) 250 ml @ 125 mls/hr Q12H IVPB Last administered on 09:00; Admin Dose 125 MLS/HR; Start 08/12/16 at 09:00 Lactobacillus Acidophilus (Florajen3 Capsule) 1 each BID PO Last administered on 08/14/16 09:01; Admin Dose 1 EACH; Start 08/12/16 at 09:00 Methylprednisolone Sodium Succinate (Solu-Medrol) 30 mg Q12 IV Last administered on 08/14/16 08:58; Admin Dose 30 MG; Start 08/13/16 at 14:00 Potassium Chloride (Klor-Con 20) 40 meq BID PO ; Start 08/14/16 at 21:00 CASSANDRA KNOWLES August 14, 2016 12:43
--- NOTE | 2016-08-14 13:10 | CONS ---
Date/Time of Note Date/Time of Note DATE: 08/14/16 TIME: 13:04 Consult Date/Type/Reason Admit Date/Time Aug 10, 2016 at 17:11 Initial Consult Date 08/11/16 Type of Consultation: Rheum Ordering Provider: JI BLANCO MD Subjective Still feels weak although no new complaints. Sat in chair for 20 min. Has had tremors at hands in past when the Lupus was more active apparently. At present with only mild fine tremor. Objective Vital Signs Date Time Temp Pulse Resp B/P Pulse Ox O2 Delivery O2 Flow Rate FiO2 08/14/16 12:04 122 08/14/16 11:32 98.4 18 133/88 97 08/14/16 07:57 Nasal Cannula 2.0 Intake and Output 08/13/16 08/13/16 08/14/16 15:00 23:00 07:00 Intake Total 300 ml 500 ml 500 ml Output Total 900 ml 1000 ml Balance 300 ml -400 ml -500 ml Exam GENERAL: Alert, oriented x3. SKIN: Without acute rashes or lesions. HEENT: Without acute oral or ocular lesions. NECK: Supple, no lymphadenopathy. HEART: With regular sinus rhythm. No murmurs noted. CHEST: Crackles at the left base. Tachypneic ABDOMEN: Soft, no masses or tenderness. NEUROLOGIC: Grossly intact. Mild fine tremor hands. MUSCULOSKELETAL: No synovitis Results/Medications Result Diagram: 08/14/16 0650 08/14/16 0650 Results 24 hrs Laboratory Tests Test 08/13/16 16:30 08/14/16 06:50 Potassium Level 3.1 L 3.9 Magnesium Level 2.0 White Blood Count 3.5 #L Red Blood Count 2.96 L Hemoglobin 8.8 L Hematocrit 27.4 L Mean Corpuscular Volume 92.6 Mean Corpuscular Hemoglobin 29.7 Mean Corpuscular Hemoglobin Concent 32.1 Red Cell Distribution Width 15.0 H Platelet Count 146 Mean Platelet Volume 9.9 Neutrophils % 85.4 H Lymphocytes % 4.0 L Monocytes % 8.9 Eosinophils % 0.0 Basophils % 0.0 Nucleated Red Blood Cells % 0.0 Neutrophils # 3.0 Lymphocytes # 0.1 L Monocytes # 0.3 Eosinophils # 0.0 Basophils # 0.0 Nucleated Red Blood Cells # 0.0 Sodium Level 141 Chloride Level 116 H Carbon Dioxide Level 19 L Anion Gap 10 Blood Urea Nitrogen 28 H Creatinine 1.04 Glucose Level 109 Calcium Level 6.6 L Total Bilirubin 0.1 L Direct Bilirubin 0.00 Indirect Bilirubin 0.1 Aspartate Amino Transf (AST/SGOT) 225 #H Alanine Aminotransferase (ALT/SGPT) 131 H Alkaline Phosphatase 144 H Total Protein 5.2 L Albumin 2.1 L Globulin 3.10 Albumin/Globulin Ratio 0.67 Medications Current Medications Benazepril HCl (Lotensin) 20 mg DAILY PO Last administered on 08/14/16 08:59; Admin Dose 20 MG; Start 08/11/16 at 09:00 Zolpidem Tartrate (Ambien) 5 mg QHS PRN PO INSOMNIA Last administered on 21:11; Admin Dose 5 MG; Start 08/11/16 at 02:30 Acetaminophen (Tylenol Tab) 650 mg Q6H PRN PO PAIN AND OR ELEVATED TEMP Last administered on 08/12/16 09:07; Admin Dose 650 MG; Start 08/11/16 at 02:30 Ondansetron HCl 4 mg 4 mg Q6H PRN IV NAUSEA AND/OR VOMITING Last administered on 08/11/16 21:08; Admin Dose 4 MG; Start 08/11/16 at 03:00 Azithromycin (Zithromax 500mg/ NS (Pmx)) 250 ml @ 250 mls/hr Q24H IVPB Last administered on 08/13/16 16:48; Admin Dose 250 MLS/HR; Start 08/11/16 at 17:00 Mycophenolate Mofetil 500 mg 500 mg BID PO Last administered on 08/14/16 08:59 ; Admin Dose 500 MG; Start 08/11/16 at 09:00 Cefepime HCl 50 ml @ 100 mls/hr Q12 IVPB Last administered on 08/14/16 10:05; Admin Dose 100 MLS/HR; Start 08/11/16 at 11:30 Vancomycin HCl (Vancocin) 250 ml @ 125 mls/hr Q12H IVPB Last administered on 09:00; Admin Dose 125 MLS/HR; Start 08/12/16 at 09:00 Lactobacillus Acidophilus (Florajen3 Capsule) 1 each BID PO Last administered on 08/14/16 09:01; Admin Dose 1 EACH; Start 08/12/16 at 09:00 Methylprednisolone Sodium Succinate (Solu-Medrol) 30 mg Q12 IV Last administered on 08/14/16t 08:58; Admin Dose 30 MG; Start 08/13/16 at 14:00 Potassium Chloride (Klor-Con 20) 40 meq BID PO ; Start 08/14/16 at 21:00 Assessment/Plan Chief Complaint/Hosp Course Ass. 1. Pneumonia Left base 2. Probably SLE relatively stable at present. C3 is low, but C4 is normal. 3. Elevated LFTs. No abdominal pain. No abd. tenderness. Rec 1. Continue steroids same dose for now. 2. Continue on 500 mg bid Cellcept next few days. 3. Will check CPK and repeat LFTs in AM Problems: YASMIN SHARIF MD August 14, 2016 13:10
[2016-08-14] MEDS ORDERED: LIDOCAINE 1% (MPF) 5 ML VIAL ONE (15:43)
--- NOTE | 2016-08-14 15:51 | RADRPT ---
PROCEDURE: US guided left thoracentesis. CLINICAL INDICATION: Shortness of breath. Left pleural effusion. TECHNIQUE: Prior to the procedure, informed consent was obtained. The risks, benefits, and alternatives were e xplained to the patient or the patient's family, including but not limited to bleeding, infection, p ain, visceral or vascular damage, shock, pneumothorax, chest tube placement, air embolism, and . The patient or the patient's family understood the risks and the alternatives and wished to proce ed with the study. Informed written consent was obtained. A procedural pause was performed. The patient's name, date of , and procedure to be performed were verified. Ultrasound of the left hemithorax was performed in the axial and sagittal planes. A left pleural eff usion is noted. Utilizing ultrasound guidance, optimal location for entry to the pleural cavity was ascertained. The overlying skin was prepped and draped in the usual sterile fashion. Approximately 10 ml of 1% Xylocaine was injected locally for pain control. Using ultrasound guidance, a 5-Telugu Yueh catheter was introduced into the left pleural space without difficulty. Fluid was aspirated. COMPARISON: Chest x-ray dated 08/13/2016. FINDINGS: Initial ultrasound demonstrates fluid in the left pleural space. Approximately 0.400 liters of sero us fluid was aspirated and sent to the laboratory. IMPRESSION: 1. Satisfactory ultrasound-guided left thoracentesis. RPTAT: QQ .Eliazar Peraza MD, Date Time Electronically viewed and signed by .Eliazar Peraza MD, on 08/14/2016 15:51 .R/
[2016-08-14] MEDS: AZITHROMYCIN 500MG/NS (PMX) 250 ML IVPB SCH (16:15)
--- NOTE | 2016-08-14 16:23 | RADRPT ---
PROCEDURE: XR Chest. CLINICAL INDICATION: Shortness of breath. Post left thoracentesis. TECHNIQUE: Single frontal view. COMPARISON: 08/13/2016. FINDINGS: The right lung is clear. There is improved aeration of the left lung and the left pleural effusion is no longer visualized. There is mild left basilar atelectasis. The heart size is normal. There is no right pleural effusion. There is no pneumothorax. IMPRESSION: 1. Smaller left pleural effusion. 2. Improved aeration of the left lung. 3. No pneumothorax following left thoracentesis. RPTAT: QQ .Eliazar Peraza MD, MD Date Time Electronically viewed and signed by .Eliazar Peraza MD, on 08/14/2016 16:23 .R/
[2016-08-14] MEDS: ACETAMINOPHEN 325 MG TAB PO PRN (21:11)
[2016-08-14] MEDS: ZOLPIDEM 5 MG TAB PO PRN (21:11)
--- NOTE | 2016-08-14 23:58 | CONS ---
Date/Time of Note Date/Time of Note DATE: 08/14/16 TIME: 23:56 Assessment/Plan Assessment/Plan Chief Complaint/Hosp Course Impression: - fever- likely from underlying pna (pt immunosuppressed) vs. autoimmune etiology. repeat bcx negative and afebrile. no PE findings or echo findings to suggest endocarditis. if bcx positive or persistent fevers may consider HERN[place]N as it is more sensitive. - sinus tachy- likely 2/2 underlying inflammatory process - systemic htn- controlled - pulm htn- moderate by echo, may be 2/2 acute pulm process. will need repeat at some point in future after acute issues resolve Recommendations: - sinus tachy likely from underlying disease, steroids - repeat bcx remain negative - cont acei for bp control as bp/kidney fxn stable - plan is for L thoracentesis,f/u fluid studies Problems: Consultation Date/Type/Reason Admit Date/Time Aug 10, 2016 at 17:11 Initial Consult Date 08/13/16 Type of Consultation: cardiology Referring Provider: JI BLANCO MD 24 HR Interval Summary Free Text/Dictation seen 08/14 am. pt remains with sinus tachy, nsr at night. no cp/sob/ palpitations. tele reviewed as above Detailed Summary Eyes: no complaints ENT: no complaints Respiratory: no complaints Cardiovascular: no complaints Gastrointestinal: no complaints Genitourinary: no complaints Exam/Review of Systems Vital Signs Vitals Vital Signs Date Time Temp Pulse Resp B/P Pulse Ox O2 Delivery O2 Flow Rate FiO2 08/14/16 23:48 97.6 95 19 133/91 97 08/14/16 17:06 3.0 08/14/16 07:57 Nasal Cannula Intake and Output 08/13/16 08/13/16 08/14/16 15:00 23:00 07:00 Intake Total 300 ml 500 ml 500 ml Output Total 900 ml 1000 ml Balance 300 ml -400 ml -500 ml Exam Constitutional: alert, oriented Psych: nl mood/affect, no complaints Head: normocephalic Eyes: EOMI, nl conjunctiva, nl lids ENMT: mucosa pink and moist, nl external ears & nose, nl nasal mucosa & septum Neck: non-tender, supple, No jvd Respiratory: other (crackles/wheeze in L base) Cardiovascular: other (tachy, regular, nl s1s2, ii/vi systolic LLSB) Gastrointestinal: nl liver, spleen, non-tender, soft Musculoskeletal: nl extremities to inspection, No joint tenderness Extremities: normal pulses Neurological: PAINTER HELPER II-XII intact, nl mental status, nl speech, nl strength Results Result Diagram: 08/14/16 0650 08/14/16 0650 Results 24 hrs Laboratory Tests Test 08/14/16 06:50 White Blood Count 3.5 #L Red Blood Count 2.96 L Hemoglobin 8.8 L Hematocrit 27.4 L Mean Corpuscular Volume 92.6 Mean Corpuscular Hemoglobin 29.7 Mean Corpuscular Hemoglobin Concent 32.1 Red Cell Distribution Width 15.0 H Platelet Count 146 Mean Platelet Volume 9.9 Neutrophils % 85.4 H Lymphocytes % 4.0 L Monocytes % 8.9 Eosinophils % 0.0 Basophils % 0.0 Nucleated Red Blood Cells % 0.0 Neutrophils # 3.0 Lymphocytes # 0.1 L Monocytes # 0.3 Eosinophils # 0.0 Basophils # 0.0 Nucleated Red Blood Cells # 0.0 Sodium Level 141 Potassium Level 3.9 Chloride Level 116 H Carbon Dioxide Level 19 L Anion Gap 10 Blood Urea Nitrogen 28 H Creatinine 1.04 Glucose Level 109 Calcium Level 6.6 L Total Bilirubin 0.1 L Direct Bilirubin 0.00 Indirect Bilirubin 0.1 Aspartate Amino Transf (AST/SGOT) 225 #H Alanine Aminotransferase (ALT/SGPT) 131 H Alkaline Phosphatase 144 H Total Protein 5.2 L Albumin 2.1 L Globulin 3.10 Albumin/Globulin Ratio 0.67 Medications Medications Current Medications Benazepril HCl (Lotensin) 20 mg DAILY PO Last administered on 08/14/16 08:59; Admin Dose 20 MG; Start 08/11/16 at 09:00 Zolpidem Tartrate (Ambien) 5 mg QHS PRN PO INSOMNIA Last administered on 21:11; Admin Dose 5 MG; Start 08/11/16 at 02:30 Acetaminophen (Tylenol Tab) 650 mg Q6H PRN PO PAIN AND OR ELEVATED TEMP Last administered on 08/14/16 21:11; Admin Dose 650 MG; Start 08/11/16 at 02:30 Ondansetron HCl 4 mg 4 mg Q6H PRN IV NAUSEA AND/OR VOMITING Last administered on 08/11/16 21:08; Admin Dose 4 MG; Start 08/11/16 at 03:00 Azithromycin (Zithromax 500mg/ NS (Pmx)) 250 ml @ 250 mls/hr Q24H IVPB Last administered on 08/14/16 16:15; Admin Dose 250 MLS/HR; Start 08/11/16 at 17:00 Mycophenolate Mofetil 500 mg 500 mg BID PO Last administered on 08/14/16 21:13 ; Admin Dose 500 MG; Start 08/11/16 at 09:00 Cefepime HCl 50 ml @ 100 mls/hr Q12 IVPB Last administered on 08/14/16 21:13; Admin Dose 100 MLS/HR; Start 08/11/16 at 11:30 Vancomycin HCl (Vancocin) 250 ml @ 125 mls/hr Q12H IVPB Last administered on 21:13; Admin Dose 125 MLS/HR; Start 08/12/16 at 09:00 Lactobacillus Acidophilus (Florajen3 Capsule) 1 each BID PO Last administered on 08/14/16 21:19; Admin Dose 1 EACH; Start 08/12/16 at 09:00 Methylprednisolone Sodium Succinate (Solu-Medrol) 30 mg Q12 IV Last administered on 08/14/16 21:12; Admin Dose 30 MG; Start 08/13/16 at 14:00 Potassium Chloride (Klor-Con 20) 40 meq BID PO Last administered on 08/14/16 21 :12; Admin Dose 40 MEQ; Start 08/14/16 at 21:00 Procedures Procedures cxr and ct report reviewed in [facility] August 14, 2016 23:58
[2016-08-15] VITALS (11 sets, daily range): BP systolic 109–133; BP diastolic 68–87; PULSE 80–138; RESP 16–20
[2016-08-15 06:50] LABS: ADD SCAN DIFF NO
[2016-08-15] MEDS: BENAZEPRIL 20 MG TAB PO SCH (06:53)
[2016-08-15 07:04] LABS: ABNORMAL IP MESSAGE 1; HEMOGLOBIN 9.6 g/dl (14.0-18.0); LYMPHOCYTES # 0.2 10^3/ul (0.8-2.9); LYMPHOCYTES % 3.9 % (15.0-51.0); MEAN CORPUSCULAR HEMOGLOBIN 30.3 pg (29.0-33.0); MEAN CORPUSCULAR HGB CONC 33.1 g/dl (32.0-37.0); MEAN CORPUSCULAR VOLUME 91.5 fl (82.0-101.0); MEAN PLATELET VOLUME 9.9 fl (7.4-10.4); MONOCYTE # 0.5 10^3/ul (0.3-0.9); MONOCYTES % 11.4 % (0.0-11.0); NEUTROPHIL # 3.4 10^3/ul (1.6-7.5); NEUTROPHILS % 81.8 % (39.0-77.0); PLATELET COUNT 197 10^3/UL (140-415); RED BLOOD COUNT 3.17 10^6/ul (4.70-6.10); WHITE BLOOD COUNT 4.1 10^3/ul (4.8-10.8)
[2016-08-15 07:59] LABS: TROPONIN-I 0.019 ng/ml (0.00-0.12)
[2016-08-15 08:01] LABS: CK-MB 8.51 ng/ml (0.0-2.4)
[2016-08-15 08:14] LABS: ALBUMIN/GLOBULIN RATIO 0.8; BILIRUBIN,INDIRECT 0.2 mg/dl (0-1.1); BILIRUBIN,TOTAL 0.2 mg/dl (0.2-1.3); CALCIUM 6.7 mg/dl (8.4-10.2); CREATININE 0.94 mg/dl (0.61-1.24); TOTAL PROTEIN 4.5 g/dl (6.1-8.1)
--- NOTE | 2016-08-15 08:24 | CONS ---
Date/Time of Note Date/Time of Note DATE: 08/15/16 TIME: 08:18 Assessment/Plan Assessment/Plan Chief Complaint/Hosp Course 1) L base infiltrate with effusion likely pneumonia but a lupus flair with lung involvement is also possible continue with ceftriaxone/azithro recommend stress doses of steroids sputum cx if possible nasal swab for MRSA respiratory viral PCR of nares (flu Ag were neg) check procalcitonin 08/12 - pulmonary changed ceftriaxone to cefepime, continue with azithro some improvement noted and likely this is bacterial 08/13 - ESR and CRP are very high and increased from last month C3 levels are low as before with normal C4 DS-DNA results are pending but were above 2000 in may 2016 continue with cefepime/azithro and high dose steroids will check beta d glucan and consider diflucan 08/14 - improved fever with steroids if pt continues to improve will change antibiotics to po vantin/doxy tomorrow 08/15 - s/p L sided thorancentesis no fevers, DS-DNA was negative! d/c cefepime/azithro/vanco and start vantin/doxy po and continue for 5 days 2) SLE await input from Dr. Rosales check ESR and CRP and DS DNA 08/12 - labs are pending, Dr. Rosales does not believe this is a lupus flair 08/13 - see above 08/14 - DS DNA is still pending 08/15 - DS-DNA was negative! 3) distended bladder extending to ureters and kidney u/a dose not suggest infection bladder scan has been ordered 08/12 - bladder scan had 480cc of urine and rdz was placed urine cx is NGTD 4) GPC and GPR are noted in two separate blood culture sets 08/12 - likely contaminants but on vanco till this is sorted out will repeat blood cx today 08/13 - blood cx grew diptheroids and CoNS these are likely contaminants repeat blood cx remain NGTD 5)diarrhea 5/2 - will start probiotics and check stool for c.dif no abd pain or distension noted and wbc is improved, less likely this is c.dif 08/14 - c.dif was negative Problems: Consultation Date/Type/Reason Admit Date/Time Aug 10, 2016 at 17:11 Initial Consult Date 08/11/16 Type of Consultation: ID Referring Provider: JI BLANCO MD 24 HR Interval Summary Free Text/Dictation pt states breathing improved post L thorancentesis No cough, N, V, D Exam/Review of Systems Vital Signs Vitals Vital Signs Date Time Temp Pulse Resp B/P Pulse Ox O2 Delivery O2 Flow Rate FiO2 08/15/16 08:15 2.0 08/15/16 07:30 Nasal Cannula 08/15/16 07:22 97.8 76 18 126/81 99 Intake and Output 08/14/16 08/14/16 08/15/16 15:00 23:00 07:00 Intake Total 1510 ml 800 ml Output Total 1200 ml Balance 310 ml 800 ml Exam Constitutional: alert, oriented Eyes: nl sclera ENMT: mucosa pink and moist Respiratory: clear to auscultation Cardiovascular: regular rate and rhythm Gastrointestinal: non-tender, soft Results Result Diagram: 08/15/16 0621 08/14/16 0650 Results 24 hrs Laboratory Tests Test 08/15/16 06:15 08/15/16 06:21 Creatine Kinase 462 H Creatine Kinase Index 1.8 Creatinine Kinase MB (Mass) 8.51 H Troponin I 0.019 White Blood Count 4.1 L Red Blood Count 3.17 L Hemoglobin 9.6 L Hematocrit 29.0 L Mean Corpuscular Volume 91.5 Mean Corpuscular Hemoglobin 30.3 Mean Corpuscular Hemoglobin Concent 33.1 Red Cell Distribution Width 15.0 H Platelet Count 197 # Mean Platelet Volume 9.9 Neutrophils % 81.8 H Lymphocytes % 3.9 L Monocytes % 11.4 H Eosinophils % 0.0 Basophils % 0.0 Nucleated Red Blood Cells % 0.0 Neutrophils # 3.4 Lymphocytes # 0.2 L Monocytes # 0.5 Eosinophils # 0.0 Basophils # 0.0 Nucleated Red Blood Cells # 0.0 Medications Medications Current Medications Benazepril HCl (Lotensin) 20 mg DAILY PO Last administered on 08/15/16 06:53; Admin Dose 20 MG; Start 08/11/16 at 09:00 Zolpidem Tartrate (Ambien) 5 mg QHS PRN PO INSOMNIA Last administered on 21:11; Admin Dose 5 MG; Start 08/11/16 at 02:30 Acetaminophen (Tylenol Tab) 650 mg Q6H PRN PO PAIN AND OR ELEVATED TEMP Last administered on 08/14/16 21:11; Admin Dose 650 MG; Start 08/11/16 at 02:30 Ondansetron HCl 4 mg 4 mg Q6H PRN IV NAUSEA AND/OR VOMITING Last administered on 08/11/16 21:08; Admin Dose 4 MG; Start 08/11/16 at 03:00 Azithromycin (Zithromax 500mg/ NS (Pmx)) 250 ml @ 250 mls/hr Q24H IVPB Last administered on 08/14/16 16:15; Admin Dose 250 MLS/HR; Start 08/11/16 at 17:00 Mycophenolate Mofetil 500 mg 500 mg BID PO Last administered on 08/14/16 21:13 ; Admin Dose 500 MG; Start 08/11/16 at 09:00 Cefepime HCl 50 ml @ 100 mls/hr Q12 IVPB Last administered on 08/14/16 21:13; Admin Dose 100 MLS/HR; Start 08/11/16 at 11:30 Vancomycin HCl (Vancocin) 250 ml @ 125 mls/hr Q12H IVPB Last administered on 21:13; Admin Dose 125 MLS/HR; Start 08/12/16 at 09:00 Lactobacillus Acidophilus (Florajen3 Capsule) 1 each BID PO Last administered on 08/14/16 21:19; Admin Dose 1 EACH; Start 08/12/16 at 09:00 Methylprednisolone Sodium Succinate (Solu-Medrol) 30 mg Q12 IV Last administered on 08/14/16 21:12; Admin Dose 30 MG; Start 08/13/16 at 14:00 Potassium Chloride (Klor-Con 20) 40 meq BID PO Last administered on 08/14/16 21 :12; Admin Dose 40 MEQ; Start 08/14/16 at 21:00 KARINA GARCIA MD August 15, 2016 08:24
[2016-08-15] MEDS: POTASSIUM CHLORIDE (SR) 20 MEQ TAB PO SCH (09:00)
[2016-08-15] MEDS ORDERED: METOPROLOL 5 MG INJ IV ONE ×2 (09:00→12:00)
--- NOTE | 2016-08-15 09:15 | CONS ---
Date/Time of Note Date/Time of Note DATE: 08/15/16 TIME: 09:07 Assessment/Plan Assessment/Plan Chief Complaint/Hosp Course 1. fever , he is afebrile today . He feels better . 2. LLL pneumonia , on antibiotics , he is very weak and still SOB 3. SLE , with lupus nephritis and nephrotic range proteinuria , DS DNA is negative . 4. diarrhea , stool for C difficle was negative 5. anemia , thrombocytopenia . 6. he was growing staph and diptheroids in blood cultures done on admission , probably contaminants . ; however , repeat BC show no growth . 7. A fib , new onset . Cardiology to see 8. L pleural effusion , S/P thoracentesis yesterday , 400 cc removed . Problems: Consultation Date/Type/Reason Admit Date/Time Aug 10, 2016 at 17:11 Initial Consult Date 08/11/16 Type of Consultation: ID Referring Provider: JI BLANCO MD 24 HR Interval Summary Free Text/Dictation He has new onset A fib with HR 150 to 160 . He is tachypneic . cardiology was contacted .He had 400 cc L thoracentesis yesterday . Constitutional: no complaints Exam/Review of Systems Vital Signs Vitals Vital Signs Date Time Temp Pulse Resp B/P Pulse Ox O2 Delivery O2 Flow Rate FiO2 08/15/16 08:44 134 08/15/16 08:15 2.0 08/15/16 07:30 Nasal Cannula 08/15/16 07:22 97.8 18 126/81 99 Intake and Output 08/14/16 08/14/16 08/15/16 15:00 23:00 07:00 Intake Total 1510 ml 800 ml Output Total 1200 ml Balance 310 ml 800 ml Exam Constitutional: alert, oriented, well developed Respiratory: diminished breath sounds Cardiovascular: irregular rhythm Gastrointestinal: soft Musculoskeletal: nl extremities to inspection Results Result Diagram: 08/15/16 0621 08/15/16 0621 Results 24 hrs Laboratory Tests Test 08/15/16 06:15 08/15/16 06:21 Creatine Kinase 462 H Creatine Kinase Index 1.8 Creatinine Kinase MB (Mass) 8.51 H Troponin I 0.019 White Blood Count 4.1 L Red Blood Count 3.17 L Hemoglobin 9.6 L Hematocrit 29.0 L Mean Corpuscular Volume 91.5 Mean Corpuscular Hemoglobin 30.3 Mean Corpuscular Hemoglobin Concent 33.1 Red Cell Distribution Width 15.0 H Platelet Count 197 # Mean Platelet Volume 9.9 Neutrophils % 81.8 H Lymphocytes % 3.9 L Monocytes % 11.4 H Eosinophils % 0.0 Basophils % 0.0 Nucleated Red Blood Cells % 0.0 Neutrophils # 3.4 Lymphocytes # 0.2 L Monocytes # 0.5 Eosinophils # 0.0 Basophils # 0.0 Nucleated Red Blood Cells # 0.0 Sodium Level 137 Potassium Level 5.0 Chloride Level 119 H Carbon Dioxide Level 17 L Anion Gap 6 L Blood Urea Nitrogen 32 H Creatinine 0.94 Glucose Level 104 Calcium Level 6.7 L Total Bilirubin 0.2 Direct Bilirubin 0.00 Indirect Bilirubin 0.2 Aspartate Amino Transf (AST/SGOT) 130 H Alanine Aminotransferase (ALT/SGPT) 147 H Alkaline Phosphatase 167 H Total Protein 4.5 L Albumin 2.0 L Globulin 2.50 Albumin/Globulin Ratio 0.80 Medications Medications Current Medications Benazepril HCl (Lotensin) 20 mg DAILY PO Last administered on 08/15/16 06:53; Admin Dose 20 MG; Start 08/11/16 at 09:00 Zolpidem Tartrate (Ambien) 5 mg QHS PRN PO INSOMNIA Last administered on 21:11; Admin Dose 5 MG; Start 08/11/16 at 02:30 Acetaminophen (Tylenol Tab) 650 mg Q6H PRN PO PAIN AND OR ELEVATED TEMP Last administered on 08/14/16 21:11; Admin Dose 650 MG; Start 08/11/16 at 02:30 Ondansetron HCl (Zofran Inj) 4 mg Q6H PRN IV NAUSEA AND/OR VOMITING Last administered on 08/11/16 21:08; Admin Dose 4 MG; Start 08/11/16 at 03:00 Mycophenolate Mofetil (Cellcept) 500 mg BID PO Last administered on 08/14/16 21 :13; Admin Dose 500 MG; Start 08/11/16 at 09:00 Lactobacillus Acidophilus (Florajen3 Capsule) 1 each BID PO Last administered on 08/14/16 21:19; Admin Dose 1 EACH; Start 08/12/16 at 09:00 Methylprednisolone Sodium Succinate (Solu-Medrol) 30 mg Q12 IV Last administered on 08/14/16 21:12; Admin Dose 30 MG; Start 08/13/16 at 14:00 Potassium Chloride (Klor-Con 20) 40 meq BID PO Last administered on 08/14/16 21 :12; Admin Dose 40 MEQ; Start 08/14/16 at 21:00 Doxycycline Hyclate (Vibramycin) 100 mg BID PO ; Start 08/15/16 at 09:00 Cefpodoxime Proxetil (Vantin) 200 mg BID PO ; Start 08/15/16 at 10:00 JI BLANCO MD August 15, 2016 09:15
[2016-08-15] MEDS: CEFPODOXIME 200 MG TAB PO SCH ×2 (09:36→20:34)
[2016-08-15] MEDS: L ACIDOPHIL/B LACTIS/B LONGUM CAPSULE PO SCH ×2 (09:36→21:00)
[2016-08-15] MEDS: METHYLPREDNISOLONE 40 MG INJ IV SCH ×2 (09:36→20:32)
[2016-08-15] MEDS: DOXYCYCLINE 100 MG TAB PO SCH ×2 (09:36→20:34)
[2016-08-15] MEDS: MYCOPHENOLATE 250 MG CAP PO SCH ×2 (09:36→20:33)
--- NOTE | 2016-08-15 11:08 | CONS ---
Date/Time of Note Date/Time of Note DATE: 08/15/16 TIME: 11:06 Assessment/Plan Assessment/Plan Additional Assessment/Plan Assessment recommendations; 1. Patient admitted for left lower lobe pneumonia, community-acquired. With significant clinical and radiological improvement. 2. Status post left thoracentesis yesterday. 3. History of SLE, status post renal biopsy with normalization of renal function. Patient on chronic immunosuppression. I agree with switching the patient to oral antibiotics. Patient can be discharged home. Consultation Date/Type/Reason Admit Date/Time Aug 10, 2016 at 17:11 Initial Consult Date 08/11/16 Type of Consultation: Pulmonary Referring Provider: JI BLANCO MD 24 HR Interval Summary Free Text/Dictation Patient is feeling markedly better overall. Underwent left thoracentesis yesterday, 400 mL of serous fluid was removed. Patient denies any coughing, fever, sputum production. Any chest pain. General exam; middle aged male, awake alert currently in no distress. Exam/Review of Systems Vital Signs Vitals Vital Signs Date Time Temp Pulse Resp B/P Pulse Ox O2 Delivery O2 Flow Rate FiO2 08/15/16 08:44 134 08/15/16 08:15 2.0 08/15/16 07:30 Nasal Cannula 08/15/16 07:22 97.8 18 126/81 99 Intake and Output 08/14/16 08/14/16 08/15/16 15:00 23:00 07:00 Intake Total 1510 ml 800 ml Output Total 1200 ml Balance 310 ml 800 ml Exam HEENT exam is; supple neck, no JVD. No lymphadenopathy. Midline trachea. No thyromegaly. Pharynx is clear. Patient has good dentition. Chest examination; minimally decreased breath sounds left lower lobe otherwise clear to auscultation. S1-S2 audible, no murmurs. Abdomen examination; soft, nontender. No organomegaly. Extremity examination; no peripheral edema. VETERINARIAN ASSISTANT examination; no focal deficit. Results Result Diagram: 08/15/1621 08/15/1621 Results 24 hrs Laboratory Tests Test 08/15/16 06:15 08/15/16 06:21 Creatine Kinase 462 H Creatine Kinase Index 1.8 Creatinine Kinase MB (Mass) 8.51 H Troponin I 0.019 White Blood Count 4.1 L Red Blood Count 3.17 L Hemoglobin 9.6 L Hematocrit 29.0 L Mean Corpuscular Volume 91.5 Mean Corpuscular Hemoglobin 30.3 Mean Corpuscular Hemoglobin Concent 33.1 Red Cell Distribution Width 15.0 H Platelet Count 197 # Mean Platelet Volume 9.9 Neutrophils % 81.8 H Lymphocytes % 3.9 L Monocytes % 11.4 H Eosinophils % 0.0 Basophils % 0.0 Nucleated Red Blood Cells % 0.0 Neutrophils # 3.4 Lymphocytes # 0.2 L Monocytes # 0.5 Eosinophils # 0.0 Basophils # 0.0 Nucleated Red Blood Cells # 0.0 Sodium Level 137 Potassium Level 5.0 Chloride Level 119 H Carbon Dioxide Level 17 L Anion Gap 6 L Blood Urea Nitrogen 32 H Creatinine 0.94 Glucose Level 104 Calcium Level 6.7 L Total Bilirubin 0.2 Direct Bilirubin 0.00 Indirect Bilirubin 0.2 Aspartate Amino Transf (AST/SGOT) 130 H Alanine Aminotransferase (ALT/SGPT) 147 H Alkaline Phosphatase 167 H Total Protein 4.5 L Albumin 2.0 L Globulin 2.50 Albumin/Globulin Ratio 0.80 Medications Medications Current Medications Benazepril HCl (Lotensin) 20 mg DAILY PO Last administered on 08/15/16 06:53; Admin Dose 20 MG; Start 08/11/16 at 09:00 Zolpidem Tartrate (Ambien) 5 mg QHS PRN PO INSOMNIA Last administered on 21:11; Admin Dose 5 MG; Start 08/11/16 at 02:30 Acetaminophen (Tylenol Tab) 650 mg Q6H PRN PO PAIN AND OR ELEVATED TEMP Last administered on 08/14/16 21:11; Admin Dose 650 MG; Start 08/11/16 at 02:30 Ondansetron HCl (Zofran Inj) 4 mg Q6H PRN IV NAUSEA AND/OR VOMITING Last administered on 08/11/16 21:08; Admin Dose 4 MG; Start 08/11/16 at 03:00 Mycophenolate Mofetil (Cellcept) 500 mg BID PO Last administered on 08/15/16 09 :36; Admin Dose 500 MG; Start 08/11/16 at 09:00 Lactobacillus Acidophilus (Florajen3 Capsule) 1 each BID PO Last administered on 08/15/16 09:36; Admin Dose 1 EACH; Start 08/12/16 at 09:00 Methylprednisolone Sodium Succinate (Solu-Medrol) 30 mg Q12 IV Last administered on 08/15/16 09:36; Admin Dose 30 MG; Start 08/13/16 at 14:00 Doxycycline Hyclate (Vibramycin) 100 mg BID PO Last administered on 08/15/16 09 :36; Admin Dose 100 MG; Start 08/15/16 at 09:00 Cefpodoxime Proxetil (Vantin) 200 mg BID PO Last administered on 08/15/16 09:36 ; Admin Dose 200 MG; Start 08/15/16 at 10:00 CASSANDRA KNOWLES August 15, 2016 11:08
--- NOTE | 2016-08-15 12:55 | CONS ---
Date/Time of Note Date/Time of Note DATE: 08/15/16 TIME: 12:53 Consult Date/Type/Reason Admit Date/Time Aug 10, 2016 at 17:11 Initial Consult Date 08/13/16 Type of Consultation: Rheumatology Ordering Provider: JI BLANCO MD Subjective Feeling much better today with more energy. Denies joint pain, chest pain, palpitions, SOB. Objective Vital Signs Date Time Temp Pulse Resp B/P Pulse Ox O2 Delivery O2 Flow Rate FiO2 08/15/16 12:17 117 08/15/16 11:22 97.9 16 133/87 97 08/15/16 08:15 2.0 08/15/16 07:30 Nasal Cannula Intake and Output 08/14/16 08/14/16 08/15/16 15:00 23:00 07:00 Intake Total 1510 ml 800 ml Output Total 1200 ml Balance 310 ml 800 ml Exam GENERAL: Alert, oriented x3. SKIN: Without acute rashes or lesions. HEENT: Without acute oral or ocular lesions. NECK: Supple, no lymphadenopathy. HEART: With regular sinus rhythm. No murmurs noted. CHEST: Crackles at the left base. Tachypneic ABDOMEN: Soft, no masses or tenderness. NEUROLOGIC: Grossly intact. Mild fine tremor hands. MUSCULOSKELETAL: No synovitis Results/Medications Result Diagram: 08/15/1662008/15/16 0621 Results 24 hrs Laboratory Tests Test 08/15/16 06:15 08/15/16 06:21 Creatine Kinase 462 H Creatine Kinase Index 1.8 Creatinine Kinase MB (Mass) 8.51 H Troponin I 0.019 White Blood Count 4.1 L Red Blood Count 3.17 L Hemoglobin 9.6 L Hematocrit 29.0 L Mean Corpuscular Volume 91.5 Mean Corpuscular Hemoglobin 30.3 Mean Corpuscular Hemoglobin Concent 33.1 Red Cell Distribution Width 15.0 H Platelet Count 197 # Mean Platelet Volume 9.9 Neutrophils % 81.8 H Lymphocytes % 3.9 L Monocytes % 11.4 H Eosinophils % 0.0 Basophils % 0.0 Nucleated Red Blood Cells % 0.0 Neutrophils # 3.4 Lymphocytes # 0.2 L Monocytes # 0.5 Eosinophils # 0.0 Basophils # 0.0 Nucleated Red Blood Cells # 0.0 Sodium Level 137 Potassium Level 5.0 Chloride Level 119 H Carbon Dioxide Level 17 L Anion Gap 6 L Blood Urea Nitrogen 32 H Creatinine 0.94 Glucose Level 104 Calcium Level 6.7 L Total Bilirubin 0.2 Direct Bilirubin 0.00 Indirect Bilirubin 0.2 Aspartate Amino Transf (AST/SGOT) 130 H Alanine Aminotransferase (ALT/SGPT) 147 H Alkaline Phosphatase 167 H Total Protein 4.5 L Albumin 2.0 L Globulin 2.50 Albumin/Globulin Ratio 0.80 Medications Current Medications Benazepril HCl (Lotensin) 20 mg DAILY PO Last administered on 08/15/16 06:53; Admin Dose 20 MG; Start 08/11/16 at 09:00 Zolpidem Tartrate (Ambien) 5 mg QHS PRN PO INSOMNIA Last administered on 21:11; Admin Dose 5 MG; Start 08/11/16 at 02:30 Acetaminophen (Tylenol Tab) 650 mg Q6H PRN PO PAIN AND OR ELEVATED TEMP Last administered on 08/14/16 21:11; Admin Dose 650 MG; Start 08/11/16 at 02:30 Ondansetron HCl (Zofran Inj) 4 mg Q6H PRN IV NAUSEA AND/OR VOMITING Last administered on 08/11/16 21:08; Admin Dose 4 MG; Start 08/11/16 at 03:00 Mycophenolate Mofetil (Cellcept) 500 mg BID PO Last administered on 08/15/16 09 :36; Admin Dose 500 MG; Start 08/11/16 at 09:00 Lactobacillus Acidophilus (Florajen3 Capsule) 1 each BID PO Last administered on 08/15/16 09:36; Admin Dose 1 EACH; Start 08/12/16 at 09:00 Methylprednisolone Sodium Succinate (Solu-Medrol) 30 mg Q12 IV Last administered on 08/15/16 09:36; Admin Dose 30 MG; Start 08/13/16 at 14:00 Doxycycline Hyclate (Vibramycin) 100 mg BID PO Last administered on 08/15/16 09 :36; Admin Dose 100 MG; Start 08/15/16 at 09:00 Cefpodoxime Proxetil (Vantin) 200 mg BID PO Last administered on 08/15/16 09:36 ; Admin Dose 200 MG; Start 08/15/16 at 10:00 Assessment/Plan Chief Complaint/Hosp Course Ass. 1. Pneumonia Left base 2. Probably SLE relatively stable at present. C3 is low, but C4 is normal. 3. Elevated LFTs. Mildly elevated CPK No abdominal pain. No abd. tenderness. Rec 1. Continue steroids same dose for now. Will consider slow taper/ change to po in next day or two. 2. Continue on 500 mg bid Cellcept next few days. Problems: MELVI VALE MD August 15, 2016 12:55
[2016-08-15] MEDS ORDERED: METOPROLOL 5 MG INJ IV PRN (14:30)
--- NOTE | 2016-08-15 14:48 | CONS ---
Date/Time of Note Date/Time of Note DATE: 08/15/16 TIME: 14:42 Assessment/Plan Assessment/Plan Additional Assessment/Plan 56 yom w/ SLE and htn who presented with LLL PNA. Had some sinus tachy yesterday but developed afib w/ RVR this am (rates up to 160s, currently 120-140 ). ECG has no ischemic ST changes. Pt seems largely asymptomatic from his afib. Afib is likely catecholamine mediated from his PNA. Would add low dose metoprolol (as bp can tolerate) with goals to keep HR at least less than 140s. (Would suspect HR will improve as infection resolves). His CHADS-VASC score is 1 (htn), so would give aspirin. - metoprolol tartrate 25mg TID (titrate up as needed, tolerated) - IV metoprolol 5mg q6h prn (prn HR < 140) - replete lytes - continue tx of PNA (as you are) - aspirin Consultation Date/Type/Reason Admit Date/Time Aug 10, 2016 at 17:11 Initial Consult Date 08/13/16 Type of Consultation: Cardiology Reason for Consultation afib w/ RVR Referring Provider: JI BALNCO MD 24 HR Interval Summary Free Text/Dictation Pt developed afib w/ RVR this am (rates up to 160-170s, currently 120-140s). Pt denies any chest pain or palpitations. He states overall, he feels better w / more energy. Exam/Review of Systems Vital Signs Vitals Vital Signs Date Time Temp Pulse Resp B/P Pulse Ox O2 Delivery O2 Flow Rate FiO2 08/15/16 12:17 117 08/15/16 11:22 97.9 16 133/87 97 08/15/16 08:15 2.0 08/15/16 07:30 Nasal Cannula Intake and Output 08/14/16 08/14/16 08/15/16 15:00 23:00 07:00 Intake Total 1510 ml 800 ml Output Total 1200 ml Balance 310 ml 800 ml Exam Constitutional: alert, No distress Eyes: EOMI, nl conjunctiva, nl sclera Neck: other (JVP ~ 9-10 cm), supple Respiratory: other (decreased at left bases, o/w clear anteriorly) Cardiovascular: irregular rhythm, other (tachy, irreg, no murmurs) Extremities: No edema Results Result Diagram: 08/15/16 0621 08/15/16 0621 Results 24 hrs Laboratory Tests Test 08/15/16 06:15 08/15/16 06:21 Creatine Kinase 462 H Creatine Kinase Index 1.8 Creatinine Kinase MB (Mass) 8.51 H Troponin I 0.019 White Blood Count 4.1 L Red Blood Count 3.17 L Hemoglobin 9.6 L Hematocrit 29.0 L Mean Corpuscular Volume 91.5 Mean Corpuscular Hemoglobin 30.3 Mean Corpuscular Hemoglobin Concent 33.1 Red Cell Distribution Width 15.0 H Platelet Count 197 # Mean Platelet Volume 9.9 Neutrophils % 81.8 H Lymphocytes % 3.9 L Monocytes % 11.4 H Eosinophils % 0.0 Basophils % 0.0 Nucleated Red Blood Cells % 0.0 Neutrophils # 3.4 Lymphocytes # 0.2 L Monocytes # 0.5 Eosinophils # 0.0 Basophils # 0.0 Nucleated Red Blood Cells # 0.0 Sodium Level 137 Potassium Level 5.0 Chloride Level 119 H Carbon Dioxide Level 17 L Anion Gap 6 L Blood Urea Nitrogen 32 H Creatinine 0.94 Glucose Level 104 Calcium Level 6.7 L Total Bilirubin 0.2 Direct Bilirubin 0.00 Indirect Bilirubin 0.2 Aspartate Amino Transf (AST/SGOT) 130 H Alanine Aminotransferase (ALT/SGPT) 147 H Alkaline Phosphatase 167 H Total Protein 4.5 L Albumin 2.0 L Globulin 2.50 Albumin/Globulin Ratio 0.80 Medications Medications Current Medications Benazepril HCl (Lotensin) 20 mg DAILY PO Last administered on 08/15/16 06:53; Admin Dose 20 MG; Start 08/11/16 at 09:00 Zolpidem Tartrate (Ambien) 5 mg QHS PRN PO INSOMNIA Last administered on 21:11; Admin Dose 5 MG; Start 08/11/16 at 02:30 Acetaminophen (Tylenol Tab) 650 mg Q6H PRN PO PAIN AND OR ELEVATED TEMP Last administered on 08/14/16 21:11; Admin Dose 650 MG; Start 08/11/16 at 02:30 Ondansetron HCl (Zofran Inj) 4 mg Q6H PRN IV NAUSEA AND/OR VOMITING Last administered on 08/11/16 21:08; Admin Dose 4 MG; Start 08/11/16 at 03:00 Mycophenolate Mofetil (Cellcept) 500 mg BID PO Last administered on 08/15/16 09 :36; Admin Dose 500 MG; Start 08/11/16 at 09:00 Lactobacillus Acidophilus (Florajen3 Capsule) 1 each BID PO Last administered on 08/15/16 09:36; Admin Dose 1 EACH; Start 08/12/16 at 09:00 Methylprednisolone Sodium Succinate (Solu-Medrol) 30 mg Q12 IV Last administered on 08/15/16 09:36; Admin Dose 30 MG; Start 08/13/16 at 14:00 Doxycycline Hyclate (Vibramycin) 100 mg BID PO Last administered on 08/15/16 09 :36; Admin Dose 100 MG; Start 08/15/16 at 09:00 Cefpodoxime Proxetil (Vantin) 200 mg BID PO Last administered on 08/15/16 09:36 ; Admin Dose 200 MG; Start 08/15/16 at 10:00 MARITZA KAPLAN August 15, 2016 14:48
[2016-08-15] MEDS: METOPROLOL 25 MG TAB PO SCH ×2 (14:57→20:34)
--- NOTE | 2016-08-15 16:42 | RADRPT ---
Vent Rate: 151 bpm RR Interval: 0 msec NH Interval: 0 msec QRS Duration: 76 msec QT Interval: 284 msec QTC Interval: 450 msec P-R-T Foley: 0 - 12 - 36 degrees Atrial fibrillation with rapid ventricular response Abnormal ECG Electronically Signed By: Deni Irving [id number]
[2016-08-15] MEDS: ZOLPIDEM 5 MG TAB PO PRN (20:34)
[2016-08-16] VITALS (7 sets, daily range): BP systolic 116–126; BP diastolic 79–82; PULSE 90–120; RESP 19–20
[2016-08-16 06:51] LABS: ADD SCAN DIFF NO
[2016-08-16 06:57] LABS: ABNORMAL IP MESSAGE 1; HEMATOCRIT 28.9 % (42.0-52.0); HEMOGLOBIN 9.4 g/dl (14.0-18.0); LYMPHOCYTES # 0.3 10^3/ul (0.8-2.9); LYMPHOCYTES % 5.4 % (15.0-51.0); MEAN CORPUSCULAR HEMOGLOBIN 29.5 pg (29.0-33.0); MEAN CORPUSCULAR HGB CONC 32.5 g/dl (32.0-37.0); MEAN CORPUSCULAR VOLUME 90.6 fl (82.0-101.0); MEAN PLATELET VOLUME 10.2 fl (7.4-10.4); MONOCYTE # 0.5 10^3/ul (0.3-0.9); MONOCYTES % 11.4 % (0.0-11.0); NEUTROPHIL # 3.7 10^3/ul (1.6-7.5); NEUTROPHILS % 79.5 % (39.0-77.0); NUCLEATED RED BLOOD CELLS% 0.4 /100WBC (0.0-0.0); PLATELET COUNT 227 10^3/UL (140-415); RED BLOOD COUNT 3.19 10^6/ul (4.70-6.10); RED CELL DISTRIBUTION WIDTH 14.9 % (11.5-14.5); WHITE BLOOD COUNT 4.6 10^3/ul (4.8-10.8)
--- NOTE | 2016-08-16 07:21 | CONS ---
Date/Time of Note Date/Time of Note DATE: 08/16/16 TIME: : Assessment/Plan Assessment/Plan Chief Complaint/Hosp Course 1) L base infiltrate with effusion likely pneumonia but a lupus flair with lung involvement is also possible continue with ceftriaxone/azithro recommend stress doses of steroids sputum cx if possible nasal swab for MRSA respiratory viral PCR of nares (flu Ag were neg) check procalcitonin 08/12 - pulmonary changed ceftriaxone to cefepime, continue with azithro some improvement noted and likely this is bacterial 08/13 - ESR and CRP are very high and increased from last month C3 levels are low as before with normal C4 DS-DNA results are pending but were above 2000 in may 2016 continue with cefepime/azithro and high dose steroids will check beta d glucan and consider diflucan 08/14 - improved fever with steroids if pt continues to improve will change antibiotics to po vantin/doxy tomorrow 08/15 - s/p L sided thorancentesis no fevers, DS-DNA was negative! d/c cefepime/azithro/vanco and start vantin/doxy po and continue for 5 days 5/6 pt tolerating vantin/doxy, continue both thru 08/20 procalcitonin was elevated, c/w pneumonia 2) SLE await input from Dr. Rosales check ESR and CRP and DS DNA 08/12 - labs are pending, Dr. Rosales does not believe this is a lupus flair 08/13 - see above 08/14 - DS DNA is still pending 08/15 - DS-DNA was negative! 3) distended bladder extending to ureters and kidney u/a dose not suggest infection bladder scan has been ordered 08/12 - bladder scan had 480cc of urine and rdz was placed urine cx is NGTD 4) GPC and GPR are noted in two separate blood culture sets 5/ - likely contaminants but on vanco till this is sorted out will repeat blood cx today 08/13 - blood cx grew diptheroids and CoNS these are likely contaminants repeat blood cx remain NGTD 5)diarrhea 5/2 - will start probiotics and check stool for c.dif no abd pain or distension noted and wbc is improved, less likely this is c.dif 08/14 - c.dif was negative 6) a-fib 5/6 - rate is good Problems: Consultation Date/Type/Reason Admit Date/Time Aug 10, 2016 at 17:11 Initial Consult Date 08/11/16 Type of Consultation: ID Referring Provider: JI BLANCO MD 24 HR Interval Summary Free Text/Dictation pt is doing well no SOB, CP, N, V has occasional loose stools Exam/Review of Systems Vital Signs Vitals Vital Signs Date Time Temp Pulse Resp B/P Pulse Ox O2 Delivery O2 Flow Rate FiO2 08/16/16 05:43 2.0 08/16/16 04:03 90 08/16/16 00:00 98.1 19 126/81 96 08/15/16 22:00 Nasal Cannula Intake and Output 08/15/16 08/15/16 08/16/16 15:00 23:00 07:00 Intake Total 680 ml 500 ml Output Total 500 ml 600 ml Balance 180 ml -100 ml Exam Constitutional: alert Eyes: nl conjunctiva, nl sclera ENMT: mucosa pink and moist Respiratory: clear to auscultation Cardiovascular: irregular rhythm Gastrointestinal: non-tender, soft Results Result Diagram: 08/16/16 0533 08/15/16 0621 Results 24 hrs Laboratory Tests Test 08/16/16 05:33 White Blood Count 4.6 L Red Blood Count 3.19 L Hemoglobin 9.4 L Hematocrit 28.9 L Mean Corpuscular Volume 90.6 Mean Corpuscular Hemoglobin 29.5 Mean Corpuscular Hemoglobin Concent 32.5 Red Cell Distribution Width 14.9 H Platelet Count 227 Mean Platelet Volume 10.2 Neutrophils % 79.5 H Lymphocytes % 5.4 L Monocytes % 11.4 H Eosinophils % 0.0 Basophils % 0.0 Nucleated Red Blood Cells % 0.4 H Neutrophils # 3.7 Lymphocytes # 0.3 L Monocytes # 0.5 Eosinophils # 0.0 Basophils # 0.0 Nucleated Red Blood Cells # 0.0 Medications Medications Current Medications Benazepril HCl (Lotensin) 20 mg DAILY PO Last administered on 08/15/16 06:53; Admin Dose 20 MG; Start 08/11/16 at 09:00 Zolpidem Tartrate (Ambien) 5 mg QHS PRN PO INSOMNIA Last administered on 20:34; Admin Dose 5 MG; Start 08/11/16 at 02:30 Acetaminophen (Tylenol Tab) 650 mg Q6H PRN PO PAIN AND OR ELEVATED TEMP Last administered on 08/14/16 21:11; Admin Dose 650 MG; Start 08/11/16 at 02:30 Ondansetron HCl (Zofran Inj) 4 mg Q6H PRN IV NAUSEA AND/OR VOMITING Last administered on 08/11/16 21:08; Admin Dose 4 MG; Start 08/11/16 at 03:00 Mycophenolate Mofetil (Cellcept) 500 mg BID PO Last administered on 08/15/16 20 :33; Admin Dose 500 MG; Start 08/11/16 at 09:00 Lactobacillus Acidophilus (Florajen3 Capsule) 1 each BID PO Last administered on 08/15/16 21:00; Admin Dose 1 EACH; Start 08/12/16 at 09:00 Methylprednisolone Sodium Succinate (Solu-Medrol) 30 mg Q12 IV Last administered on 08/15/16 20:32; Admin Dose 30 MG; Start 08/13/16 at 14:00 Doxycycline Hyclate (Vibramycin) 100 mg BID PO Last administered on 08/15/16 20 :34; Admin Dose 100 MG; Start 08/15/16 at 09:00 Cefpodoxime Proxetil (Vantin) 200 mg BID PO Last administered on 08/15/16 20:34 ; Admin Dose 200 MG; Start 08/15/16 at 10:00 Metoprolol Tartrate (Lopressor) 5 mg Q6H PRN IV PALPITATION; Start 08/15/16 at 14:30 Metoprolol Tartrate (Lopressor) 25 mg TID PO Last administered on 08/15/16 20: 34; Admin Dose 25 MG; Start 08/15/16 at 14:35 KARINA GARCIA MD August 16, 2016 07:21
[2016-08-16 07:27] LABS: ALBUMIN/GLOBULIN RATIO 0.71; BILIRUBIN,INDIRECT 0.2 mg/dl (0-1.1); BILIRUBIN,TOTAL 0.2 mg/dl (0.2-1.3); CALCIUM 6.9 mg/dl (8.4-10.2); CREATININE 0.93 mg/dl (0.61-1.24); POTASSIUM 4.3 mmol/L (3.5-5.1); TOTAL PROTEIN 4.8 g/dl (6.1-8.1)
[2016-08-16] MEDS: MYCOPHENOLATE 250 MG CAP PO SCH (08:51)
[2016-08-16] MEDS: METHYLPREDNISOLONE 40 MG INJ IV SCH (08:51)
[2016-08-16] MEDS: METOPROLOL 25 MG TAB PO SCH (08:52)
[2016-08-16] MEDS: BENAZEPRIL 20 MG TAB PO SCH (08:52)
[2016-08-16] MEDS: CEFPODOXIME 200 MG TAB PO SCH (08:52)
[2016-08-16] MEDS: DOXYCYCLINE 100 MG TAB PO SCH (08:52)
[2016-08-16] MEDS: L ACIDOPHIL/B LACTIS/B LONGUM CAPSULE PO SCH (09:02)
--- NOTE | 2016-08-16 09:10 | CONS ---
Date/Time of Note Date/Time of Note DATE: 08/16/16 TIME: 09:03 Assessment/Plan Assessment/Plan Chief Complaint/Hosp Course Impression: - fever- likely 2/2 infection/pna, on abx - atrial fibrillation with rvr- new diagnosis, non valvular. asymptomatic. chadsvasc score of 1. on asa. needs improved rate cotnrol - systemic htn- controlled - pulm htn- moderate by echo, may be 2/2 acute pulm process. will need repeat at some point in future after acute issues resolve Recommendations: - iv metoprolol 5mg now, then increase metoprolol to 50mg po tid. cont titrate as tolerated - could add dilt if bp stable and further rate control needed after metoprolol titration - would avoid amiodarone given interaction with cellcept - check tsh/ft4 - asa 81mg daily for stroke prophy Problems: Consultation Date/Type/Reason Admit Date/Time Aug 10, 2016 at 17:11 Initial Consult Date 08/13/16 Type of Consultation: Cardiology Referring Provider: JI BLANCO MD 24 HR Interval Summary Free Text/Dictation pt remains in afib, hrs elevated 120s-160s. denies any cp/sob/palpitations. states he feels better since admission. does have dizziness when standing which is chronic. tele reviewed per hpi Constitutional: no complaints Detailed Summary Respiratory: no complaints Cardiovascular: no complaints Gastrointestinal: no complaints Exam/Review of Systems Vital Signs Vitals Vital Signs Date Time Temp Pulse Resp B/P Pulse Ox O2 Delivery O2 Flow Rate FiO2 08/16/16 08:07 120 08/16/16 07:57 97.8 20 126/79 98 08/16/16 05:43 2.0 08/15/16 22:00 Nasal Cannula Intake and Output 08/15/16 08/15/16 08/16/16 15:00 23:00 07:00 Intake Total 680 ml 500 ml Output Total 500 ml 600 ml Balance 180 ml -100 ml Exam Constitutional: alert, oriented Psych: nl mood/affect, no complaints Head: normocephalic Eyes: EOMI, nl conjunctiva, nl lids ENMT: mucosa pink and moist, nl external ears & nose, nl nasal mucosa & septum Neck: non-tender, supple, No jvd Respiratory: other (crackles/wheeze in L base) Cardiovascular: other (tachy, irregular, nl s1s2, ii/vi systolic LLSB) Gastrointestinal: nl liver, spleen, non-tender, soft Musculoskeletal: nl extremities to inspection, No joint tenderness Extremities: normal pulses 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, nl mental status, nl speech, nl strength Results Result Diagram: 08/16/16 0533 08/16/16 0533 Results 24 hrs Laboratory Tests Test 08/16/16 05:33 White Blood Count 4.6 L Red Blood Count 3.19 L Hemoglobin 9.4 L Hematocrit 28.9 L Mean Corpuscular Volume 90.6 Mean Corpuscular Hemoglobin 29.5 Mean Corpuscular Hemoglobin Concent 32.5 Red Cell Distribution Width 14.9 H Platelet Count 227 Mean Platelet Volume 10.2 Neutrophils % 79.5 H Lymphocytes % 5.4 L Monocytes % 11.4 H Eosinophils % 0.0 Basophils % 0.0 Nucleated Red Blood Cells % 0.4 H Neutrophils # 3.7 Lymphocytes # 0.3 L Monocytes # 0.5 Eosinophils # 0.0 Basophils # 0.0 Nucleated Red Blood Cells # 0.0 Sodium Level 136 Potassium Level 4.3 Chloride Level 116 H Carbon Dioxide Level 18 L Anion Gap 6 L Blood Urea Nitrogen 30 H Creatinine 0.93 Glucose Level 110 Calcium Level 6.9 L Total Bilirubin 0.2 Direct Bilirubin 0.00 Indirect Bilirubin 0.2 Aspartate Amino Transf (AST/SGOT) 62 #H Alanine Aminotransferase (ALT/SGPT) 109 H Alkaline Phosphatase 152 H Total Protein 4.8 L Albumin 2.0 L Globulin 2.80 Albumin/Globulin Ratio 0.71 Medications Medications Current Medications Benazepril HCl (Lotensin) 20 mg DAILY PO Last administered on 08/16/16 08:52; Admin Dose 20 MG; Start 08/11/16 at 09:00 Zolpidem Tartrate (Ambien) 5 mg QHS PRN PO INSOMNIA Last administered on 20:34; Admin Dose 5 MG; Start 08/11/16 at 02:30 Acetaminophen (Tylenol Tab) 650 mg Q6H PRN PO PAIN AND OR ELEVATED TEMP Last administered on 08/14/16 21:11; Admin Dose 650 MG; Start 08/11/16 at 02:30 Ondansetron HCl (Zofran Inj) 4 mg Q6H PRN IV NAUSEA AND/OR VOMITING Last administered on 08/11/16 21:08; Admin Dose 4 MG; Start 08/11/16 at 03:00 Mycophenolate Mofetil (Cellcept) 500 mg BID PO Last administered on 08/16/16 08 :51; Admin Dose 500 MG; Start 08/11/16 at 09:00 Lactobacillus Acidophilus (Florajen3 Capsule) 1 each BID PO Last administered on 08/16/16 09:02; Admin Dose 1 EACH; Start 08/12/16 at 09:00 Methylprednisolone Sodium Succinate (Solu-Medrol) 30 mg Q12 IV Last administered on 08/16/16 08:51; Admin Dose 30 MG; Start 08/13/16 at 14:00 Doxycycline Hyclate (Vibramycin) 100 mg BID PO Last administered on 08/16/16 08 :52; Admin Dose 100 MG; Start 08/15/16 at 09:00 Cefpodoxime Proxetil (Vantin) 200 mg BID PO Last administered on 08/16/16 08:52 ; Admin Dose 200 MG; Start 08/15/16 at 10:00 Metoprolol Tartrate (Lopressor) 5 mg Q6H PRN IV PALPITATION Last administered on 08/16/16 08:53; Admin Dose 5 MG; Start 08/15/16 at 14:30 Metoprolol Tartrate (Lopressor) 25 mg TID PO Last administered on 08/16/16 08: 52; Admin Dose 25 MG; Start 08/15/16 at 14:35 Procedures Procedures cxr/thora report reviewed [facility] August 16, 2016 09:09
[2016-08-16] MEDS ORDERED: ASPIRIN (EC) 81 MG TAB PO SCH (10:00)
--- NOTE | 2016-08-16 10:32 | PN ---
Date/Time of Note Date/Time of Note DATE: 08/16/16 TIME: 10:31 Assessment/Plan VTE Prophylaxis VTE Prophylaxis Intervention: other Lines/Catheters IV [facility]ter Type [facility]from [facility] Saline Lock Urinary Cath still in place: No Assessment/Plan Assessment/Plan 1. Pneumonia resolving 2. SLE on immunosuppressant rx 3. Abnl liver tests noted, will follow, CT scan noted Subjective 24 Hr Interval Summary Respiratory: cough (mild), No shortness of breath Cardiovascular: No chest pain Gastrointestinal: no complaints Exam/Review of Systems Vital Signs Vitals Vital Signs Date Time Temp Pulse Resp B/P Pulse Ox O2 Delivery O2 Flow Rate FiO2 08/16/16 09:03 Nasal Cannula 3.0 08/16/16 08:07 120 08/16/16 07:57 97.8 20 126/79 98 Intake and Output 08/15/16 08/15/16 08/16/16 15:00 23:00 07:00 Intake Total 680 ml 500 ml Output Total 500 ml 600 ml Balance 180 ml -100 ml Exam Neck: No jvd Respiratory: diminished breath sounds, No crackles/rales Cardiovascular: regular rate and rhythm Gastrointestinal: soft Extremities: No edema Results Result Diagram: 08/16/16 0533 08/16/16 0533 Results 24 hrs Laboratory Tests Test 08/16/16 05:33 08/16/16 09:10 White Blood Count 4.6 L Red Blood Count 3.19 L Hemoglobin 9.4 L Hematocrit 28.9 L Mean Corpuscular Volume 90.6 Mean Corpuscular Hemoglobin 29.5 Mean Corpuscular Hemoglobin Concent 32.5 Red Cell Distribution Width 14.9 H Platelet Count 227 Mean Platelet Volume 10.2 Neutrophils % 79.5 H Lymphocytes % 5.4 L Monocytes % 11.4 H Eosinophils % 0.0 Basophils % 0.0 Nucleated Red Blood Cells % 0.4 H Neutrophils # 3.7 Lymphocytes # 0.3 L Monocytes # 0.5 Eosinophils # 0.0 Basophils # 0.0 Nucleated Red Blood Cells # 0.0 Sodium Level 136 Potassium Level 4.3 Chloride Level 116 H Carbon Dioxide Level 18 L Anion Gap 6 L Blood Urea Nitrogen 30 H Creatinine 0.93 Glucose Level 110 Calcium Level 6.9 L Total Bilirubin 0.2 Direct Bilirubin 0.00 Indirect Bilirubin 0.2 Aspartate Amino Transf (AST/SGOT) 62 #H Alanine Aminotransferase (ALT/SGPT) 109 H Alkaline Phosphatase 152 H Total Protein 4.8 L Albumin 2.0 L Globulin 2.80 Albumin/Globulin Ratio 0.71 Thyroid Stimulating Hormone (TSH) 0.376 L Medications Medications Current Medications Benazepril HCl (Lotensin) 20 mg DAILY PO Last administered on 08/16/16 08:52; Admin Dose 20 MG; Start 08/11/16 at 09:00 Zolpidem Tartrate (Ambien) 5 mg QHS PRN PO INSOMNIA Last administered on 20:34; Admin Dose 5 MG; Start 08/11/16 at 02:30 Acetaminophen (Tylenol Tab) 650 mg Q6H PRN PO PAIN AND OR ELEVATED TEMP Last administered on 08/14/16 21:11; Admin Dose 650 MG; Start 08/11/16 at 02:30 Ondansetron HCl (Zofran Inj) 4 mg Q6H PRN IV NAUSEA AND/OR VOMITING Last administered on 08/11/16 21:08; Admin Dose 4 MG; Start 08/11/16 at 03:00 Mycophenolate Mofetil (Cellcept) 500 mg BID PO Last administered on 08/16/16 08 :51; Admin Dose 500 MG; Start 08/11/16 at 09:00 Lactobacillus Acidophilus (Florajen3 Capsule) 1 each BID PO Last administered on 08/16/16 09:02; Admin Dose 1 EACH; Start 08/12/16 at 09:00 Methylprednisolone Sodium Succinate (Solu-Medrol) 30 mg Q12 IV Last administered on 08/16/16 08:51; Admin Dose 30 MG; Start 08/13/16 at 14:00 Doxycycline Hyclate (Vibramycin) 100 mg BID PO Last administered on 08/16/16 08 :52; Admin Dose 100 MG; Start 08/15/16 at 09:00 Cefpodoxime Proxetil (Vantin) 200 mg BID PO Last administered on 08/16/16 08:52 ; Admin Dose 200 MG; Start 08/15/16 at 10:00 Metoprolol Tartrate (Lopressor) 5 mg Q6H PRN IV PALPITATION Last administered on 08/16/16 08:53; Admin Dose 5 MG; Start 08/15/16 at 14:30 Metoprolol Tartrate (Lopressor) 50 mg TID PO ; Start 08/16/16 at 13:00 Aspirin (Halfprin) 81 mg DAILY PO ; Start 08/16/16 at 10:00 ERIKA TOMPKINS MD August 16, 2016 10:32
--- NOTE | 2016-08-16 10:50 | CONS ---
Date/Time of Note Date/Time of Note DATE: 08/16/16 TIME: 10:46 Consult Date/Type/Reason Admit Date/Time Aug 10, 2016 at 17:11 Initial Consult Date 08/13/16 Type of Consultation: pulmonary Ordering Provider: JI BLANCO MD Subjective Patient states he is breathing better today following thoracentesis He underwent thoracentesis yesterday with 400 mL removed from the left lung No complications postprocedure Objective Vital Signs Date Time Temp Pulse Resp B/P Pulse Ox O2 Delivery O2 Flow Rate FiO2 08/16/16 09:03 Nasal Cannula 3.0 08/16/16 08:07 120 08/16/16 07:57 97.8 20 126/79 98 Intake and Output 08/15/16 08/15/16 08/16/16 15:00 23:00 07:00 Intake Total 680 ml 500 ml Output Total 500 ml 600 ml Balance 180 ml -100 ml Exam GENERAL: Well-nourished well-developed gentleman comfortable at rest VITAL SIGNS: per chart NECK: Supple. No JVD or lymphadenopathy. CARDIAC EXAM: S1, S2. No added sounds or murmurs. CHEST: Diminished air entry left base with few crackles ABDOMEN: Soft, nontender. No guarding or rebound. EXTREMITIES: No cyanosis, clubbing or edema. NEUROLOGIC: Generalized weakness. No focal deficits. Results/Medications Result Diagram: 08/16/16 0533 08/16/16 0533 Results 24 hrs Laboratory Tests Test 08/16/16 05:33 08/16/16 09:10 White Blood Count 4.6 L Red Blood Count 3.19 L Hemoglobin 9.4 L Hematocrit 28.9 L Mean Corpuscular Volume 90.6 Mean Corpuscular Hemoglobin 29.5 Mean Corpuscular Hemoglobin Concent 32.5 Red Cell Distribution Width 14.9 H Platelet Count 227 Mean Platelet Volume 10.2 Neutrophils % 79.5 H Lymphocytes % 5.4 L Monocytes % 11.4 H Eosinophils % 0.0 Basophils % 0.0 Nucleated Red Blood Cells % 0.4 H Neutrophils # 3.7 Lymphocytes # 0.3 L Monocytes # 0.5 Eosinophils # 0.0 Basophils # 0.0 Nucleated Red Blood Cells # 0.0 Sodium Level 136 Potassium Level 4.3 Chloride Level 116 H Carbon Dioxide Level 18 L Anion Gap 6 L Blood Urea Nitrogen 30 H Creatinine 0.93 Glucose Level 110 Calcium Level 6.9 L Total Bilirubin 0.2 Direct Bilirubin 0.00 Indirect Bilirubin 0.2 Aspartate Amino Transf (AST/SGOT) 62 #H Alanine Aminotransferase (ALT/SGPT) 109 H Alkaline Phosphatase 152 H Total Protein 4.8 L Albumin 2.0 L Globulin 2.80 Albumin/Globulin Ratio 0.71 Thyroid Stimulating Hormone (TSH) 0.376 L Medications Current Medications Benazepril HCl (Lotensin) 20 mg DAILY PO Last administered on 08/16/16 08:52; Admin Dose 20 MG; Start 08/11/16 at 09:00 Zolpidem Tartrate (Ambien) 5 mg QHS PRN PO INSOMNIA Last administered on 20:34; Admin Dose 5 MG; Start 08/11/16 at 02:30 Acetaminophen (Tylenol Tab) 650 mg Q6H PRN PO PAIN AND OR ELEVATED TEMP Last administered on 08/14/16 21:11; Admin Dose 650 MG; Start 08/11/16 at 02:30 Ondansetron HCl (Zofran Inj) 4 mg Q6H PRN IV NAUSEA AND/OR VOMITING Last administered on 08/11/16 21:08; Admin Dose 4 MG; Start 08/11/16 at 03:00 Mycophenolate Mofetil (Cellcept) 500 mg BID PO Last administered on 08/16/16 08 :51; Admin Dose 500 MG; Start 08/11/16 at 09:00 Lactobacillus Acidophilus (Florajen3 Capsule) 1 each BID PO Last administered on 08/16/16 09:02; Admin Dose 1 EACH; Start 08/12/16 at 09:00 Methylprednisolone Sodium Succinate (Solu-Medrol) 30 mg Q12 IV Last administered on 08/16/16 08:51; Admin Dose 30 MG; Start 08/13/16 at 14:00 Doxycycline Hyclate (Vibramycin) 100 mg BID PO Last administered on 08/16/16 08 :52; Admin Dose 100 MG; Start 08/15/16 at 09:00 Cefpodoxime Proxetil (Vantin) 200 mg BID PO Last administered on 08/16/16 08:52 ; Admin Dose 200 MG; Start 08/15/16 at 10:00 Metoprolol Tartrate (Lopressor) 5 mg Q6H PRN IV PALPITATION Last administered on 08/16/16 08:53; Admin Dose 5 MG; Start 08/15/16 at 14:30 Metoprolol Tartrate (Lopressor) 50 mg TID PO ; Start 08/16/16 at 13:00 Aspirin (Halfprin) 81 mg DAILY PO ; Start 08/16/16 at 10:00 Assessment/Plan Chief Complaint/Hosp Course Assessment 1. Presumed community-acquired pneumonia 2. Left pleural effusion status post thoracentesis 3. History of lupus Plan 1. Continue antibiotics per ID 2. Repeat chest x-ray in a.m. 3. Decrease steroids per rheumatology, continue CellCept. Problems: FRANCHESCA RIOS [facility], [facility] August 16, 2016 10:49
--- NOTE | 2016-08-16 12:01 | CONS ---
Date/Time of Note Date/Time of Note DATE: 08/16/16 TIME: 11:26 Consult Date/Type/Reason Admit Date/Time Aug 10, 2016 at 17:11 Initial Consult Date 08/11/16 Type of Consultation: Rheum Ordering Provider: JI BLANCO MD Subjective Patient very anxious to go home and threatening that will go AMA. Says he feels well, although appears weak. Denies much SOB. No new complaints. Objective Vital Signs Date Time Temp Pulse Resp B/P Pulse Ox O2 Delivery O2 Flow Rate FiO2 08/16/16 09:03 Nasal Cannula 3.0 08/16/16 08:07 120 08/16/16 07:57 97.8 20 126/79 98 Intake and Output 08/15/16 08/15/16 08/16/16 15:00 23:00 07:00 Intake Total 680 ml 500 ml Output Total 500 ml 600 ml Balance 180 ml -100 ml Exam GENERAL: Alert, oriented x3. SKIN: Without acute rashes or lesions. HEENT: Without acute oral or ocular lesions. NECK: Supple, no lymphadenopathy. HEART: IRREG Rhythm. CHEST: Crackles at the left base. Tachypneic ABDOMEN: Soft, no masses or tenderness. NEUROLOGIC: Grossly intact. Mild fine tremor hands. MUSCULOSKELETAL: No synovitis Results/Medications Result Diagram: 08/16/16 0533 08/16/16 0533 Results 24 hrs Laboratory Tests Test 08/16/16 05:33 08/16/16 09:10 White Blood Count 4.6 L Red Blood Count 3.19 L Hemoglobin 9.4 L Hematocrit 28.9 L Mean Corpuscular Volume 90.6 Mean Corpuscular Hemoglobin 29.5 Mean Corpuscular Hemoglobin Concent 32.5 Red Cell Distribution Width 14.9 H Platelet Count 227 Mean Platelet Volume 10.2 Neutrophils % 79.5 H Lymphocytes % 5.4 L Monocytes % 11.4 H Eosinophils % 0.0 Basophils % 0.0 Nucleated Red Blood Cells % 0.4 H Neutrophils # 3.7 Lymphocytes # 0.3 L Monocytes # 0.5 Eosinophils # 0.0 Basophils # 0.0 Nucleated Red Blood Cells # 0.0 Sodium Level 136 Potassium Level 4.3 Chloride Level 116 H Carbon Dioxide Level 18 L Anion Gap 6 L Blood Urea Nitrogen 30 H Creatinine 0.93 Glucose Level 110 Calcium Level 6.9 L Total Bilirubin 0.2 Direct Bilirubin 0.00 Indirect Bilirubin 0.2 Aspartate Amino Transf (AST/SGOT) 62 #H Alanine Aminotransferase (ALT/SGPT) 109 H Alkaline Phosphatase 152 H Total Protein 4.8 L Albumin 2.0 L Globulin 2.80 Albumin/Globulin Ratio 0.71 Thyroid Stimulating Hormone (TSH) 0.376 L Medications Current Medications Benazepril HCl (Lotensin) 20 mg DAILY PO Last administered on 08/16/16 08:52; Admin Dose 20 MG; Start 08/11/16 at 09:00 Zolpidem Tartrate (Ambien) 5 mg QHS PRN PO INSOMNIA Last administered on 20:34; Admin Dose 5 MG; Start 08/11/16 at 02:30 Acetaminophen (Tylenol Tab) 650 mg Q6H PRN PO PAIN AND OR ELEVATED TEMP Last administered on 08/14/16 21:11; Admin Dose 650 MG; Start 08/11/16 at 02:30 Ondansetron HCl (Zofran Inj) 4 mg Q6H PRN IV NAUSEA AND/OR VOMITING Last administered on 08/11/16 21:08; Admin Dose 4 MG; Start 08/11/16 at 03:00 Mycophenolate Mofetil (Cellcept) 500 mg BID PO Last administered on 08/16/16 08 :51; Admin Dose 500 MG; Start 08/11/16 at 09:00 Lactobacillus Acidophilus (Florajen3 Capsule) 1 each BID PO Last administered on 08/16/16 09:02; Admin Dose 1 EACH; Start 08/12/16 at 09:00 Methylprednisolone Sodium Succinate (Solu-Medrol) 30 mg Q12 IV Last administered on 08/16/16 08:51; Admin Dose 30 MG; Start 08/13/16 at 14:00 Doxycycline Hyclate (Vibramycin) 100 mg BID PO Last administered on 08/16/16 08 :52; Admin Dose 100 MG; Start 08/15/16 at 09:00 Cefpodoxime Proxetil (Vantin) 200 mg BID PO Last administered on 08/16/16 08:52 ; Admin Dose 200 MG; Start 08/15/16 at 10:00 Metoprolol Tartrate (Lopressor) 5 mg Q6H PRN IV PALPITATION Last administered on 08/16/16 08:53; Admin Dose 5 MG; Start 08/15/16 at 14:30 Metoprolol Tartrate (Lopressor) 50 mg TID PO ; Start 08/16/16 at 13:00 Aspirin (Halfprin) 81 mg DAILY PO ; Start 08/16/16 at 10:00 Assessment/Plan Chief Complaint/Hosp Course Ass. 1. Pneumonia Left base 2. Probably SLE relatively stable at present. C3 is low, but C4 is normal. CH50 normal. Negative DS DNA at present. 3. Elevated CK. Unclear etiology. 4. Elevated LFTs. No abdominal pain. No abd. tenderness. Improving. Possibly related to muscle. Rec 1. Will decrease Solumedrol to 30 mg daily at this point and would switch to prednisone 30 mg daily in two days (unless leaves AMA). 2. Continue on 500 mg bid Cellcept next few days. 3. Follow LFTs and CK levels 4. I discussed with patient extensively reasons to continue in the hospital and not leave AMA these next few days. Problems: YASMIN SHARIF MD August 16, 2016 11:39
[2016-08-16] MEDS ORDERED: METOPROLOL 50 MG TAB PO SCH (13:00)
[2016-08-17] MEDS ORDERED: METHYLPREDNISOLONE 40 MG INJ IV SCH (09:00)
== END 2016-08-16 12:40 | disposition left against medical advice (07) | DRG 194 ==
LOC: E/R 13:47 → MS4 17:11 → TEL 08-12 23:21
PROVIDERS: ADMIT Internal Medicine; ATTEND Internal Medicine
PROC: 0W9B3ZZ Drainage of Left Pleural Cavity, Percutaneous Approach (ICD-10-PCS; principal; 2016-08-14)
DX: J18.9 Pneumonia, unspecified organism (principal); J90 Pleural effusion, not elsewhere classified; D69.6 Thrombocytopenia, unspecified; N13.30 Unspecified hydronephrosis; M32.9 Systemic lupus erythematosus, unspecified; I11.9 Hypertensive heart disease without heart failure; I27.2 Other secondary pulmonary hypertension; I48.91 Unspecified atrial fibrillation; R80.9 Proteinuria, unspecified; G47.00 Insomnia, unspecified; Z79.52 Long term (current) use of systemic steroids; Z79.899 Other long term (current) drug therapy; D72.819 Decreased white blood cell count, unspecified; D64.9 Anemia, unspecified; R19.7 Diarrhea, unspecified; N32.89 Other specified disorders of bladder; R94.5 Abnormal results of liver function studies; R79.9 Abnormal finding of blood chemistry, unspecified; E87.6 Hypokalemia; R76.0 Raised antibody titer
CPT/HCPCS: 36415; 71010; 74176; 76942; 80048; 80053; 80076; 80202; 81001; 81003; 82550; 82553; 82570; 83605; 83735; 84100; 84132; 84145; 84443; 84484; 85025; 85610; 85651; 85730; 86140; 86160; 86162; 86226; 87040; 87070; 87075; 87081; 87086; 87102; 87116; 87400; 93005; 93306; 94664; 96374; J0456; J0692; J0696; J1720; J2405; J2920; J3370; J3480; J7030; J7050; J7512; J7517

== ENCOUNTER → 2016-08-25 | Outpatient (CLI) | payer BC ==
[~2016-08-25] MED LIST changes: -ACYC800T57 PO; +BENA20TA48 PO; -CELE100C85 PO; -FEXO1TAB; -FLUC150T17 PO; +METO50TA16 PO; +MYCO500T13 PO; +ZOLP5TAB7 PO
[2016-08-25 08:31] LABS: ADD SCAN DIFF NO
[2016-08-25 08:34] LABS: ADD UMIC YES; URINE BILIRUBIN (Dip) NEGATIVE (NEGATIVE); URINE BLOOD (Dip) 2+ (NEGATIVE); URINE COLOR YELLOW (YELLOW); URINE GLUCOSE (Dip) NEGATIVE (NEGATIVE); URINE KETONES (Dip) NEGATIVE (NEGATIVE); URINE LEUKOCYTE ESTERASE (Dip) NEGATIVE (NEGATIVE); URINE NITRITE (Dip) NEGATIVE (NEGATIVE); URINE TOTAL PROTEIN (Dip) 1+ (NEGATIVE); URINE UROBILINOGEN (Dip) 0.2 E.U./dL (0.1-1.0)
[2016-08-25 08:38] LABS: ABNORMAL IP MESSAGE 1; BASOPHILS % 0.2 % (0.0-2.0); EOSINOPHILS % 0.2 % (0.0-7.0); HEMATOCRIT 28.8 % (42.0-52.0); HEMOGLOBIN 8.9 g/dl (14.0-18.0); LYMPHOCYTES # 0.5 10^3/ul (0.8-2.9); LYMPHOCYTES % 8.2 % (15.0-51.0); MEAN CORPUSCULAR HEMOGLOBIN 29.3 pg (29.0-33.0); MEAN CORPUSCULAR HGB CONC 30.9 g/dl (32.0-37.0); MEAN CORPUSCULAR VOLUME 94.7 fl (82.0-101.0); MEAN PLATELET VOLUME 9.5 fl (7.4-10.4); MONOCYTE # 0.5 10^3/ul (0.3-0.9); MONOCYTES % 8.2 % (0.0-11.0); NEUTROPHIL # 4.5 10^3/ul (1.6-7.5); NEUTROPHILS % 80.2 % (39.0-77.0); PLATELET COUNT 202 10^3/UL (140-415); RED BLOOD COUNT 3.04 10^6/ul (4.70-6.10); RED CELL DISTRIBUTION WIDTH 16.4 % (11.5-14.5); WHITE BLOOD COUNT 5.6 10^3/ul (4.8-10.8)
[2016-08-25 08:50] LABS: MUCUS,URINE FEW
[2016-08-25 08:55] LABS: ALBUMIN 2.3 g/dl (3.3-4.9); POTASSIUM 3.2 mmol/L (3.5-5.1)
[2016-08-25 08:57] LABS: BILIRUBIN,INDIRECT 0.1 mg/dl (0-1.1); BILIRUBIN,TOTAL 0.1 mg/dl (0.2-1.3); CREATININE 0.98 mg/dl (0.61-1.24)
[2016-08-25 08:58] LABS: ALBUMIN/GLOBULIN RATIO 0.88; TOTAL PROTEIN 4.9 g/dl (6.1-8.1)
[2016-08-25 08:59] LABS: CALCIUM 8.4 mg/dl (8.4-10.2)
== END | disposition home or self-care (01) ==
LOC: LAB 08:04
PROVIDERS: ATTEND Specialist
DX: M32.9 Systemic lupus erythematosus, unspecified (principal)
CPT/HCPCS: 80053; 81001; 81003; 85025; 85651; 86140

== ENCOUNTER 2016-08-27 17:25 | Inpatient (IN) | payer BC ==
[~2016-08-27] VITALS: Ht 165.1 cm; Wt 72.4 kg
[~2016-08-27 17:25] MED LIST changes: -METO50TA16 PO; -ZOLP5TAB7 PO
[2016-08-27 18:18] VITALS: PULSE 104
[2016-08-27] MEDS ORDERED: POTASSIUM CHLORIDE (SR) 20 MEQ TAB PO STA (18:26)
[2016-08-27] MEDS ORDERED: MAGNESIUM HYDROXIDE 30ML CUP PO PRN (18:30)
[2016-08-27] MEDS ORDERED: NACL 0.9% 3 ML SYG IV SCH (18:30)
[2016-08-27] MEDS ORDERED: LORAZEPAM 0.5 MG TAB PO PRN (18:30)
[2016-08-27] MEDS ORDERED: ACETAMINOPHEN 325 MG TAB PO PRN ×2 (18:30)
[2016-08-27 18:52] VITALS: Ht 165.1 cm; Wt 72.4 kg
[2016-08-27] MEDS ORDERED: ZOLPIDEM 5 MG TAB PO PRN ×2 (19:00→22:30)
--- NOTE | 2016-08-27 20:03 | PREOPHP ---
DATE OF ADMISSION: 08/27/2016 REASON FOR ADMISSION: Uncontrolled atrial fibrillation and congestive heart failure. HISTORY OF PRESENT ILLNESS: This 56-year-old man was in his usual state of health until about 2 wee ks ago when he developed fatigue and fever. The patient, at that time, came to the Emergency Room [facility] and was found to have a left lower lobe pneumonia. The patient was a dmitted at that time and was started on intravenous antibiotics. The patient has had a history of s ystemic lupus erythematosus. He has had proteinuria, did have a kidney biopsy at [facility] in 2012 and was told that the kidney biopsy was normal. The patient has gone into remission with the lupus. He has been on CellCept and prednisone. He is also followed by Dr. Ángel Connelly, a [facility] magician/illusionist, for the systemic lupus erythematosus. The patient was admitted on 08/10/2016, an d then on Thursday, , the patient became agitated and did not want to stay in the hospital. The patient, at that time, signed out against medical advice. He went home on antibiotics, which included doxycycline and Augmentin; he has finished those antibiotics. While patient was in the [facility], during that admission, he did develop sudden onset of uncontrolled atrial fibrillation. He w as seen in consultation by Dr. Iam Lopes a local band tumbler. The patient did have an echocar diogram which showed an ejection fraction of 55%. The patient was started on metoprolol and he has been taking metoprolol 75 mg twice a day. The patient was on higher doses of prednisone while in [facility]; however, that has been tapered down to 20 mg a day. The patient did see Dr. Connelly ye and his dose of CellCept was increased to 1500 mg in the morning and 1000 mg at night. The patient's last double-stranded DNA was low and his lupus was felt to be in remission. The patient a lso has developed lower extremity edema, which he did not have when I last saw him. PAST MEDICAL HISTORY: Remarkable for systemic lupus erythematosus, proteinuria, hypertension, atria l fibrillation. PAST SURGICAL HISTORY: Kidney biopsy in 2011. FAMILY HISTORY: Father diagnosed with heart disease; father is . Mother is . The rest of the family history is unknown. SOCIAL HISTORY: The patient does not smoke, does not drink alcohol. 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 CURRENT MEDICATION 1. CellCept 1500 mg in the morning and 1000 mg at night. 2. Prednisone 20 mg a day. 3. Benazepril 20 mg a day. 4. Zyrtec 10 mg a day. 5. Nasonex 2 sprays in each nostril once a day. 6. Fish oil daily. 7. Calcium with vitamin D twice a day. 8. Biotin 5000 mcg a day. 9. Aspirin 81 mg a day. 10. Ambien at bedtime. REVIEW OF SYSTEMS CONSTITUTIONAL: Patient does have some fatigue but has been feeling stronger recently. OPHTHALMOLOGIC: Negative. EARS, NOSE AND THROAT: Negative. CARDIORESPIRATORY: Denies any chest pain, chest pressure, cough. GASTROINTESTINAL: Negative. NEUROLOGIC: Negative. MUSCULOSKELETAL: Does have some bilateral shoulder pain, which he gets when his lupus is active. UROLOGIC: Denies dysuria or difficulty urinating. PHYSICAL EXAMINATION GENERAL: At this time, reveals a well-developed man in no apparent distress. VITAL SIGNS: Pulse of 104, blood pressure 132/80, heart rate 84. HEENT: Head normocephalic. Eyes, extraocular muscles intact. NOSE AND MOUTH: Normal. NECK: Supple. No neck vein distention. LUNGS: Clear on the right side. In the left base, there were diminished breath sounds; no rales or wheezes. HEART: Irregularly irregular rhythm. No murmurs, gallops or rubs. ABDOMEN: Soft, nontender; no masses or megaly. EXTREMITIES: 2+ pitting edema of both lower extremities. NEUROLOGIC: Grossly intact. IMPRESSION 1. Uncontrolled atrial fibrillation. The patient's heart rate in my office was as high as 120. He had new-onset atrial fibrillation during his last admission to the hospital 2 weeks ago. He also h as new onset of lower extremity edema, which may be related to his uncontrolled atrial fibrillation. His ejection fraction on his last echocardiogram was 55%. 2. History of systemic lupus erythematosus. 3. 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 4. Hypertension. 5. Lpyy-pkszp-ujvq pneumonia, which seems to have improved. 6. Vrupsp-oz-drxillm disease. PLAN 1. Admit to telemetry. 2. Cardiology consultation. 3. Start diuretics after potassium is corrected. 4. Continue CellCept and prednisone for lupus. 5. Cardiology consultation and rheumatology consultation. Dictated By: JI BLANCO MD, ND/JADYN Conf#: [id number] DID#: [id number]
[2016-08-27 20:08] VITALS: BP 119/73; RESP 16
[2016-08-27 20:17] VITALS: PULSE 100
[2016-08-27] MEDS: MYCOPHENOLATE 250 MG CAP PO SCH (20:45)
[2016-08-27] MEDS: ENOXAPARIN 40 MG/0.4 ML SYG SC SCH (20:45)
[2016-08-27] MEDS ORDERED: METOPROLOL 25 MG TAB PO SCH (22:30)
[2016-08-27] MEDS ORDERED: MYCO500T13 PO ×2 (22:36)
[2016-08-27] MEDS ORDERED: ZOLP5TAB7 PO (22:36)
[2016-08-27] MEDS ORDERED: METO50TA16 PO (22:36)
[2016-08-27] MEDS: METOPROLOL (XL) 25 MG TAB PO SCH (22:49)
[2016-08-27 23:16] LABS: ADD UMIC YES; URINE BILIRUBIN (Dip) NEGATIVE (NEGATIVE); URINE BLOOD (Dip) 1+ (NEGATIVE); URINE COLOR LT. YELLOW (YELLOW); URINE GLUCOSE (Dip) NEGATIVE (NEGATIVE); URINE KETONES (Dip) NEGATIVE (NEGATIVE); URINE LEUKOCYTE ESTERASE (Dip) NEGATIVE (NEGATIVE); URINE NITRITE (Dip) NEGATIVE (NEGATIVE); URINE TOTAL PROTEIN (Dip) NEGATIVE (NEGATIVE); URINE UROBILINOGEN (Dip) 0.2 E.U./dL (0.1-1.0)
[2016-08-28] VITALS (14 sets, daily range): BP systolic 98–137; BP diastolic 67–87; PULSE 78–100; RESP 16–20
[2016-08-28 00:01] LABS: PROTEIN/CREAT RATIO 1.48 RATIO
[2016-08-28 08:19] LABS: ADD SCAN DIFF NO
--- NOTE | 2016-08-28 08:33 | RADRPT ---
PROCEDURE: Chest 1 views. CLINICAL INDICATION: Shortness of breath. TECHNIQUE: AP views of the chest was obtained. COMPARISON: August 14, 2016 FINDINGS: The heart is large. Retrocardiac opacity is identified. Blunting of the left costophrenic angle is observed. Linear atelectasis is noted in the lingula. Osseous structures are intact. IMPRESSION: Cardiomegaly . Retrocardiac opacity that may reflect left lower lobe atelectasis or infiltrate combined with small pleural effusion. Linear atelectasis in the lingula. RPTAT: AA .Rodney Howe MD, Date Time Electronically viewed and signed by .Rodney Howe MD, MD on 08/28/2016 08:32 .P/
[2016-08-28 08:37] LABS: ABNORMAL IP MESSAGE 1; BASOPHILS % 0.4 % (0.0-2.0); EOSINOPHILS % 0.7 % (0.0-7.0); HEMATOCRIT 24.9 % (42.0-52.0); HEMOGLOBIN 8.1 g/dl (14.0-18.0); LYMPHOCYTES # 0.6 10^3/ul (0.8-2.9); LYMPHOCYTES % 20.3 % (15.0-51.0); MEAN CORPUSCULAR HEMOGLOBIN 30.9 pg (29.0-33.0); MEAN CORPUSCULAR HGB CONC 32.5 g/dl (32.0-37.0); MEAN PLATELET VOLUME 10.2 fl (7.4-10.4); MONOCYTE # 0.4 10^3/ul (0.3-0.9); MONOCYTES % 14.4 % (0.0-11.0); NEUTROPHIL # 1.7 10^3/ul (1.6-7.5); NEUTROPHILS % 62.4 % (39.0-77.0); PLATELET COUNT 159 10^3/UL (140-415); RED BLOOD COUNT 2.62 10^6/ul (4.70-6.10); WHITE BLOOD COUNT 2.7 10^3/ul (4.8-10.8)
[2016-08-28 09:06] LABS: ALBUMIN 2.1 g/dl (3.3-4.9)
[2016-08-28 09:07] LABS: POTASSIUM 3.2 mmol/L (3.5-5.1)
[2016-08-28 09:08] LABS: CREATININE 0.92 mg/dl (0.61-1.24)
[2016-08-28 09:09] LABS: ALBUMIN/GLOBULIN RATIO 0.87; CALCIUM 8.5 mg/dl (8.4-10.2); TOTAL PROTEIN 4.5 g/dl (6.1-8.1)
[2016-08-28 09:10] LABS: MAGNESIUM 1.5 mg/dl (1.7-2.5)
--- NOTE | 2016-08-28 09:12 | CONS ---
Date/Time of Note Date/Time of Note DATE: 08/28/16 TIME: 09:10 Assessment/Plan Assessment/Plan Chief Complaint/Hosp Course Impression: - atrial fibrillation with rvr- new diagnosis 2 weeks ago, non valvular. now with fatigue, may have developed some degree of myopathy given left AMA last admission. chadsvasc score of 1. on asa. needs improved rate control - edema- likely related to uncontrolled afib, will improve rate control. consider gentle diuresis. repeat cardiac assessment when rates improved to r/o tachy myopathy - systemic htn- controlled - pulm htn- moderate by echo. will need repeat at some point in future after acute issues resolve Recommendations: - cont metop 75mg po bid - add dilt 120cd bid, hold if hrs < 60, sbp < 90 - asa 81mg daily for stroke prophy ok to d/c home if stable rates Problems: Consultation Date/Type/Reason Admit Date/Time August 27, 2016 at 17:25 Date of Consultation: August 28, 2016 Type of Consultation: Cardiology Reason for Consultation Afib, Edema Referring Provider: JI BLANCO MD Hx of Present Illness Mr. Coughlin is a 56 yo man with h/o SLE on cellcept/prednisone chronically admitted 2 weeks ago for fevers, chills, PNA. Pt given abx at that time, improving but developed new onset afib. Pt with rvr, was started on avn blockers, but left hospital per his choice prior to rate being well controlled. Pt had been on metoprolol 75mg po bid and asa for stroke prophy. However, cont to have dyspnea with exertion and weakness. No palpitations, dizziness, lightheadedness. No chest pain, pressure. No syncope. No pnd, orthopnea, but did have progressive ble edema. Pt saw PCP Dr. Blanco yesterday and was found to be in afib with rvr with ble edema. Pt admitted for further management. Continues to have hrs 120s at rest on metoprolol. EKG shows afib with rvr. Constitutional: no fevers, fatigued Eyes: no complaints ENT: no complaints Respiratory: no complaints Cardiovascular: edema Gastrointestinal: no complaints Genitourinary: no complaints Musculoskeletal: no complaints Skin: no complaints Neurologic: no complaints Endocrine: no complaints Psychological: nl mood/affect, no complaints Past Medical History - SLE, with renal and pulmonary involvement 5 years ago, status post renal biopsy. - Chronic immunosuppression. - Atrial fibrillation Past Surgical History renal bx Family History Significant Family History: other (father with h/o [place]) Social History Alcohol Use: none Smoking Status: Never smoker Drug Use: none Exam/Review of Systems Vital Signs Vitals Vital Signs Date Time Temp Pulse Resp B/P Pulse Ox O2 Delivery O2 Flow Rate FiO2 08/28/16 08:10 97 08/28/16 07:56 98.7 20 128/81 97 Intake and Output 08/27/16 08/27/16 08/28/16 15:00 23:00 07:00 Intake Total 1500 ml Output Total 1200 ml Balance 300 ml Exam Constitutional: alert, oriented Psych: nl mood/affect, no complaints Head: normocephalic Eyes: EOMI, nl conjunctiva, nl lids ENMT: mucosa pink and moist, nl external ears & nose, nl nasal mucosa & septum Neck: non-tender, supple, No jvd Respiratory: CTA Cardiovascular: other (tachy, irregular, nl s1s2, ii/vi systolic LLSB) 2+ ble edema pre tib Gastrointestinal: nl liver, spleen, non-tender, soft Musculoskeletal: nl extremities to inspection, No joint tenderness Extremities: normal pulses Neurological: CHAIN OFFBEARER II-XII intact, nl mental status, nl speech, nl strength Results Result Diagram: 08/28/16617 Results 24 hrs Laboratory Tests Test 08/27/16 22:10 08/28/16 06:18 08/28/16 06:37 Urine Color LT. YELLOW Urine Clarity CLEAR Urine pH 6.0 Urine Specific [place] <=1.005 L Urine Ketones NEGATIVE Urine Nitrite NEGATIVE Urine Bilirubin NEGATIVE Urine Urobilinogen 0.2 E.U./dL Urine Leukocyte Esterase NEGATIVE Urine Microscopic RBC 2-5 Urine Microscopic WBC 0-2 Urine Hemoglobin 1+ H Urine Random Creatinine 16.84 L Urine Protein/Creatinine Ratio 1.48 Urine Glucose NEGATIVE Urine Total Protein 25.0 H White Blood Count 2.7 #L Red Blood Count 2.62 L Hemoglobin 8.1 L Hematocrit 24.9 L Mean Corpuscular Volume 95.0 Mean Corpuscular Hemoglobin 30.9 Mean Corpuscular Hemoglobin Concent 32.5 Red Cell Distribution Width 16.0 H Platelet Count 159 # Mean Platelet Volume 10.2 Neutrophils % 62.4 Lymphocytes % 20.3 Monocytes % 14.4 H Eosinophils % 0.7 Basophils % 0.4 Nucleated Red Blood Cells % 0.0 Neutrophils # 1.7 Lymphocytes # 0.6 L Monocytes # 0.4 Eosinophils # 0.0 Basophils # 0.0 Nucleated Red Blood Cells # 0.0 B-Type Natriuretic Peptide 4050 H Medications Medications Current Medications Mycophenolate Mofetil (Cellcept) 1,500 mg AM PO ; Start 08/28/16 at 09:00 Mycophenolate Mofetil (Cellcept) 1,000 mg HS PO Last administered on 08/27/16 20:45; Admin Dose 1,000 MG; Start 08/27/16 at 21:00 Lorazepam (Ativan) 0.5 mg Q8H PRN PO ANXIETY; Start 08/27/16 at 18:30 Acetaminophen (Tylenol Tab) 650 mg Q6H PRN PO PAIN LEVEL 1-3 OR FEVER; Start at 18:30 Magnesium Hydroxide (Milk Of Mag) 30 ml DAILY PRN PO CONSTIPATION; Start at 18:30 Enoxaparin Sodium (Lovenox) 40 mg DAILY SC Last administered on 08/27/16 20:45 ; Admin Dose 40 MG; Start 08/27/16 at 18:30 Benazepril HCl (Lotensin) 20 mg DAILY PO ; Start 08/28/16 at 09:00 Prednisone (Prednisone) 20 mg DAILY PO ; Start 08/28/16 at 09:00 Zolpidem Tartrate (Ambien) 5 mg QHS PRN PO INSOMNIA; Start 08/27/16 at 22:30 Metoprolol Succinate (Toprol Xl) 75 mg BID PO Last administered on 08/27/16 22 :49; Admin Dose 75 MG; Start 08/27/16 at 23:00 Procedures Procedures ekg per hpi cxr images reviewed left lower lobe infiltrate combined with small pleural effusion. ARIE HOUSE August 28, 2016 09:12
--- NOTE | 2016-08-28 09:21 | CONS ---
Date/Time of Note Date/Time of Note DATE: 08/28/16 TIME: 09:15 Assessment/Plan Assessment/Plan Chief Complaint/Hosp Course 1. Atrial fibrillation , uncontrolled rate . Cardiology consultation 2. Resolving LLL pneumonia and pleural effusion 3. SLE , 4. proteinuria due to SLE . 5. edema 6. anemia . will check iron studies . Problems: Consultation Date/Type/Reason Admit Date/Time August 27, 2016 at 17:25 Initial Consult Date 24 HR Interval Summary Free Text/Dictation He is in A fib at an uncontrolled rate . Constitutional: no complaints Exam/Review of Systems Vital Signs Vitals Vital Signs Date Time Temp Pulse Resp B/P Pulse Ox O2 Delivery O2 Flow Rate FiO2 08/28/16 08:10 97 08/28/16 07:56 98.7 20 128/81 97 Intake and Output 08/27/16 08/27/16 08/28/16 15:00 23:00 07:00 Intake Total 1500 ml Output Total 1200 ml Balance 300 ml Exam Constitutional: alert, oriented, well developed Psych: nl mood/affect, no complaints Respiratory: diminished breath sounds Cardiovascular: edema, nl pulses, regular rate and rhythm Extremities: edema Results Result Diagram: 08/28/16 0618 08/28/16 0630 Results 24 hrs Laboratory Tests Test 08/27/16 22:10 08/28/16 06:18 08/28/16 06:30 08/28/16 06:37 Urine Color LT. YELLOW Urine Clarity CLEAR Urine pH 6.0 Urine Specific [place] <=1.005 L Urine Ketones NEGATIVE Urine Nitrite NEGATIVE Urine Bilirubin NEGATIVE Urine Urobilinogen 0.2 E.U./dL Urine Leukocyte Esterase NEGATIVE Urine Microscopic RBC 2-5 Urine Microscopic WBC 0-2 Urine Hemoglobin 1+ H Urine Random Creatinine 16.84 L Urine Protein/Creatinine Ratio 1.48 Urine Glucose NEGATIVE Urine Total Protein 25.0 H White Blood Count 2.7 #L Red Blood Count 2.62 L Hemoglobin 8.1 L Hematocrit 24.9 L Mean Corpuscular Volume 95.0 Mean Corpuscular Hemoglobin 30.9 Mean Corpuscular Hemoglobin Concent 32.5 Red Cell Distribution Width 16.0 H Platelet Count 159 # Mean Platelet Volume 10.2 Neutrophils % 62.4 Lymphocytes % 20.3 Monocytes % 14.4 H Eosinophils % 0.7 Basophils % 0.4 Nucleated Red Blood Cells % 0.0 Neutrophils # 1.7 Lymphocytes # 0.6 L Monocytes # 0.4 Eosinophils # 0.0 Basophils # 0.0 Nucleated Red Blood Cells # 0.0 Sodium Level 141 Potassium Level 3.2 L Chloride Level 108 Carbon Dioxide Level 24 Anion Gap 12 Blood Urea Nitrogen 13 Creatinine 0.92 Glucose Level 97 Calcium Level 8.5 Magnesium Level 1.5 L Total Bilirubin 0.0 L Direct Bilirubin 0.00 Indirect Bilirubin 0.0 Aspartate Amino Transf (AST/SGOT) 31 Alanine Aminotransferase (ALT/SGPT) 50 Alkaline Phosphatase 77 Total Protein 4.5 L Albumin 2.1 L Globulin 2.40 Albumin/Globulin Ratio 0.87 B-Type Natriuretic Peptide 4050 H Medications Medications Current Medications Mycophenolate Mofetil (Cellcept) 1,500 mg AM PO ; Start 08/28/16 at 09:00 Mycophenolate Mofetil (Cellcept) 1,000 mg HS PO Last administered on 08/27/16 20:45; Admin Dose 1,000 MG; Start 08/27/16 at 21:00 Lorazepam (Ativan) 0.5 mg Q8H PRN PO ANXIETY; Start 08/27/16 at 18:30 Acetaminophen (Tylenol Tab) 650 mg Q6H PRN PO PAIN LEVEL 1-3 OR FEVER; Start at 18:30 Magnesium Hydroxide (Milk Of Mag) 30 ml DAILY PRN PO CONSTIPATION; Start at 18:30 Enoxaparin Sodium (Lovenox) 40 mg DAILY SC Last administered on 08/27/16 20:45 ; Admin Dose 40 MG; Start 08/27/16 at 18:30 Benazepril HCl (Lotensin) 20 mg DAILY PO ; Start 08/28/16 at 09:00 Prednisone (Prednisone) 20 mg DAILY PO ; Start 08/28/16 at 09:00 Zolpidem Tartrate (Ambien) 5 mg QHS PRN PO INSOMNIA; Start 08/27/16 at 22:30 Metoprolol Succinate (Toprol Xl) 75 mg BID PO Last administered on 08/27/16 22 :49; Admin Dose 75 MG; Start 08/27/16 at 23:00 Diltiazem HCl (Cardizem Cd) 120 mg BID PO ; Start 08/28/16 at 09:30; Status JI ARNOLD MD August 28, 2016 09:21
[2016-08-28] MEDS: ENOXAPARIN 40 MG/0.4 ML SYG SC SCH (09:51)
[2016-08-28] MEDS: predniSONE 20 MG TAB PO SCH (09:52)
[2016-08-28] MEDS: BENAZEPRIL 20 MG TAB PO SCH (09:52)
[2016-08-28] MEDS: DILTIAZEM (CD) 120 MG CAP PO SCH ×2 (09:54→21:42)
[2016-08-28] MEDS: MYCOPHENOLATE 250 MG CAP PO SCH ×2 (09:54→21:41)
[2016-08-28] MEDS: ASPIRIN 81 MG TAB PO SCH (09:54)
[2016-08-28] MEDS: METOPROLOL (XL) 25 MG TAB PO SCH ×2 (09:55→21:43)
[2016-08-28 09:59] LABS: IRON 52 ug/dl (35-150)
[2016-08-28 10:08] LABS: TOTAL IRON BINDING CAPACITY 157 ug/dl (241-421)
[2016-08-28] MEDS ORDERED: MAGNESIUM SULFATE 2 GM/50 ML 50 ML IVPB ONE (12:30)
[2016-08-28] MEDS: POTASSIUM CHLORIDE (SR) 20 MEQ TAB PO SCH ×2 (12:58→21:41)
[2016-08-28] MEDS ORDERED: FUROSEMIDE 20 MG INJ IV ONE (19:00)
--- NOTE | 2016-08-28 21:28 | RADRPT ---
Vent Rate: 99 bpm RR Interval: 0 msec OK Interval: 0 msec QRS Duration: 80 msec QT Interval: 328 msec QTC Interval: 420 msec P-R-T Jenkins: 0 - 33 - 63 degrees Atrial fibrillation Abnormal ECG Electronically Signed By: Deni Irving [id number]
[2016-08-29 00:24] VITALS: PULSE 115
[2016-08-29 03:25] VITALS: BP 109/66; RESP 20
[2016-08-29 04:22] VITALS: PULSE 77
[2016-08-29 06:11] LABS: ADD SCAN DIFF NO
[2016-08-29 06:31] LABS: ABNORMAL IP MESSAGE 1; EOSINOPHILS % 0.3 % (0.0-7.0); HEMOGLOBIN 8.1 g/dl (14.0-18.0); LYMPHOCYTES # 0.6 10^3/ul (0.8-2.9); LYMPHOCYTES % 19.9 % (15.0-51.0); MEAN CORPUSCULAR HEMOGLOBIN 29.8 pg (29.0-33.0); MEAN CORPUSCULAR HGB CONC 31.2 g/dl (32.0-37.0); MEAN CORPUSCULAR VOLUME 95.6 fl (82.0-101.0); MEAN PLATELET VOLUME 9.5 fl (7.4-10.4); MONOCYTE # 0.4 10^3/ul (0.3-0.9); MONOCYTES % 14.8 % (0.0-11.0); NEUTROPHIL # 1.8 10^3/ul (1.6-7.5); NEUTROPHILS % 63.3 % (39.0-77.0); PLATELET COUNT 145 10^3/UL (140-415); RED BLOOD COUNT 2.72 10^6/ul (4.70-6.10); RED CELL DISTRIBUTION WIDTH 16.4 % (11.5-14.5); WHITE BLOOD COUNT 2.9 10^3/ul (4.8-10.8)
[2016-08-29 06:39] LABS: RETICULOCYTE COUNT % 2.2 % (0.5-1.5)
[2016-08-29 06:40] LABS: ALBUMIN 2.3 g/dl (3.3-4.9); ALBUMIN/GLOBULIN RATIO 0.92; CALCIUM 8.5 mg/dl (8.4-10.2); CREATININE 0.9 mg/dl (0.61-1.24); POTASSIUM 4.9 mmol/L (3.5-5.1); TOTAL PROTEIN 4.8 g/dl (6.1-8.1)
[2016-08-29 06:42] LABS: COMPLEMENT C4 25 mg/dl (14-44)
[2016-08-29 06:49] LABS: COMPLEMENT C3 < 40 mg/dl (88-165)
[2016-08-29 07:01] VITALS: BP 128/70; RESP 18
[2016-08-29 08:00] VITALS: PULSE 99
--- NOTE | 2016-08-29 08:38 | PDOCDIS ---
Discharge Instructions CONDITION Patient Condition: Good HOME CARE INSTRUCTIONS: Diet Instructions: Reduced SodiumSpecial Diet: 2gm Na ACTIVITY: Activity Restrictions: Slowly Increase Activity Bathing Restrictions: Shower FOLLOW UP/APPOINTMENTS Appointments Dr Estrada , JI Gregorio MD August 29, 2016 08:38
--- NOTE | 2016-08-29 09:10 | DS ---
DATE OF ADMISSION: 08/27/2016 DATE OF DISCHARGE: HISTORY OF PRESENT ILLNESS AND HOSPITAL COURSE: This 56-year-old man was admitted from my office af ter he presented with uncontrolled atrial fibrillation. The patient was admitted to the hospital an d placed on the telemetry floor. His heart rate was as high as 120 to 130. The patient was seen in consultation by Dr. Iam Scales, a acoustic warfare analyst. Dr. Matamoros started the patient on Cardizem-C D 120 mg twice a day. The patient's heart rate is now controlled, now in the 80s to 90s. He feels well. He denies any shortness of breath. He did receive some intravenous Lasix while in the hospit al, and he has diuresed nicely and the edema in his legs is decreased. The patient is ambulatory. The patient is in good condition. The patient will be discharged home today to the care of his . I did speak with Dr. Lopes and Dr. Connelly, and they are both in agreement for him going home. Dr. Connelly sees him for his lupus and Dr. Matamoros for his atrial fibrillation. DISCHARGE MEDICATIONS: Include the followin. Cardizem-CD 120 mg twice a day. 2. Aspirin 81 mg a day. 3. CellCept 1500 mg in the morning, 1000 mg at night. 4. Benazepril 20 mg a day. 5. Prednisone 20 mg a day. 6. Metoprolol succinate 75 mg twice a day. 7. Tylenol p.r.n. pain. 8. Magnesium oxide 400 mg twice a day. 9. Lasix 20 mg a day as needed for edema. 10. Potassium chloride 20 mEq when he takes the furosemide. The patient is anemic. His hematocrit is 26. He is also leukopenic with a white blood cell count o f 2700. The reasons for this is thought to be due to his lupus. However, he is on CellCept which c an also affect these numbers. The patient will follow up with myself, Dr. Connelly, and Dr. Lazaro orosco as an outpatient. DISCHARGE DIAGNOSES: 1. Uncontrolled atrial fibrillation. 2. Systemic lupus erythematosus. 3. Proteinuria due to lupus. 4. Edema. 5. Leukopenia and anemia. Dictated By: JI BLANCO MD, ND/NTS Conf#: [id number] [facility]#: [id number]
[2016-08-29] MEDS: MYCOPHENOLATE 250 MG CAP PO SCH (09:25)
[2016-08-29] MEDS: BENAZEPRIL 20 MG TAB PO SCH (09:25)
[2016-08-29] MEDS: predniSONE 20 MG TAB PO SCH (09:26)
[2016-08-29] MEDS: ASPIRIN 81 MG TAB PO SCH (09:26)
[2016-08-29] MEDS: METOPROLOL (XL) 25 MG TAB PO SCH (09:26)
[2016-08-29] MEDS: DILTIAZEM (CD) 120 MG CAP PO SCH (09:27)
[2016-08-29] MEDS: ENOXAPARIN 40 MG/0.4 ML SYG SC SCH (09:32)
--- NOTE | 2016-08-29 15:32 | CONS ---
Date/Time of Note Date/Time of Note DATE: 08/29/16 TIME: 15:30 Assessment/Plan Assessment/Plan Chief Complaint/Hosp Course Impression: - atrial fibrillation with rvr- new diagnosis 2 weeks ago, non valvular. now with fatigue, may have developed some degree of myopathy given left AMA last admission. chadsvasc score of 1. on asa. needs improved rate control - edema- likely related to uncontrolled afib, will improve rate control. consider gentle diuresis. repeat cardiac assessment when rates improved to r/o tachy myopathy - systemic htn- controlled - pulm htn- moderate by echo. will need repeat at some point in future after acute issues resolve Recommendations: - cont metop 75mg po bid, can titrate as outpt if hrs elevated - cont dilt 120cd bid - asa 81mg daily for stroke prophy - cont low dose diuretic with electrolyte supp, f/u echo as outpt ok to d/c home Problems: Consultation Date/Type/Reason Admit Date/Time August 27, 2016 at 17:25 Initial Consult Date 08/28/16 Type of Consultation: Cardiology Referring Provider: JI BLANCO MD 24 HR Interval Summary Free Text/Dictation pt seen this am. hrs improved 80s-100s. tele reviewed, remains in afib. pt reports improved sob. no cp/palpitations. Detailed Summary Eyes: no complaints ENT: no complaints Respiratory: no complaints Cardiovascular: no complaints Gastrointestinal: no complaints Exam/Review of Systems Vital Signs Vitals Vital Signs Date Time Temp Pulse Resp B/P Pulse Ox O2 Delivery O2 Flow Rate FiO2 08/29/16 08:00 99 08/29/16 07:01 98.2 18 128/70 99 08/28/16 21:42 Room Air Intake and Output 08/28/16 08/28/16 08/29/16 15:00 23:00 07:00 Intake Total 500 ml 1200 ml Output Total 1600 ml 2200 ml Balance -1100 ml -1000 ml Exam Constitutional: alert, oriented Psych: nl mood/affect, no complaints Head: normocephalic Eyes: EOMI, nl conjunctiva, nl lids ENMT: mucosa pink and moist, nl external ears & nose, nl nasal mucosa & septum Neck: non-tender, supple, No jvd Respiratory: CTA Cardiovascular: other (regular rate, irregularly irregular, nl s1s2, ii/vi systolic LLSB)1+ ble edema pre tib Gastrointestinal: nl liver, spleen, non-tender, soft Musculoskeletal: nl extremities to inspection, No joint tenderness Extremities: normal pulses Neurological: KETTLE CLEANER II-XII intact, nl mental status, nl speech, nl strength Results Result Diagram: 08/29/16 0545 08/29/16 0545 Results 24 hrs Laboratory Tests Test 08/28/16 20:30 08/29/16 05:15 08/29/16 05:45 Stool Occult Blood NEGATIVE Complement C3 < 40 L Complement C4 25 White Blood Count 2.9 L Red Blood Count 2.72 L Hemoglobin 8.1 L Hematocrit 26.0 L Mean Corpuscular Volume 95.6 Mean Corpuscular Hemoglobin 29.8 Mean Corpuscular Hemoglobin Concent 31.2 L Red Cell Distribution Width 16.4 H Platelet Count 145 Mean Platelet Volume 9.5 Neutrophils % 63.3 Lymphocytes % 19.9 Monocytes % 14.8 H Eosinophils % 0.3 Basophils % 0.0 Nucleated Red Blood Cells % 0.0 Neutrophils # 1.8 Lymphocytes # 0.6 L Monocytes # 0.4 Eosinophils # 0.0 Basophils # 0.0 Nucleated Red Blood Cells # 0.0 Absolute Reticulocyte Count 0.058 Percent Reticulocyte Count 2.2 H Sodium Level 137 Potassium Level 4.9 Chloride Level 106 Carbon Dioxide Level 29 Anion Gap 7 L Blood Urea Nitrogen 11 Creatinine 0.90 Glucose Level 82 Calcium Level 8.5 Magnesium Level 1.7 Total Bilirubin 0.0 L Direct Bilirubin 0.00 Indirect Bilirubin 0.0 Aspartate Amino Transf (AST/SGOT) 28 Alanine Aminotransferase (ALT/SGPT) 59 Alkaline Phosphatase 75 Total Protein 4.8 L Albumin 2.3 L Globulin 2.50 Albumin/Globulin Ratio 0.92 Procedures Procedures cxr report reviewed in emr [facility]SE August 29, 2016 15:32
== END 2016-08-29 10:15 | disposition home or self-care (01) | DRG 308 ==
LOC: TEL 17:25
PROVIDERS: ADMIT Internal Medicine; ATTEND Internal Medicine
DX: I48.91 Unspecified atrial fibrillation (principal); J18.9 Pneumonia, unspecified organism; M32.9 Systemic lupus erythematosus, unspecified; D64.9 Anemia, unspecified; R60.9 Edema, unspecified; D72.819 Decreased white blood cell count, unspecified; Z79.82 Long term (current) use of aspirin
CPT/HCPCS: 71010; 80053; 81001; 81003; 82270; 82570; 82728; 83010; 83540; 83735; 83880; 85025; 85045; 86160; 87081; 93005; J1940; J1650; J3475; J7512; J7517

== ENCOUNTER → 2016-10-06 | Outpatient (CLI) | payer BC ==
[~2016-10-06] MED LIST changes: -IBUP-1542 PO; +METO50TA16 PO; -ZOLP10TA PO; +ZOLP5TAB7 PO
[2016-10-06 10:04] LABS: ABNORMAL IP MESSAGE 1; ADD SCAN DIFF NO; BASOPHILS % 0.3 % (0.0-2.0); EOSINOPHILS % 0.7 % (0.0-7.0); HEMOGLOBIN 10.6 g/dl (14.0-18.0); LYMPHOCYTES # 0.4 10^3/ul (0.8-2.9); LYMPHOCYTES % 12.2 % (15.0-51.0); MEAN CORPUSCULAR HEMOGLOBIN 30.2 pg (29.0-33.0); MEAN CORPUSCULAR HGB CONC 32.1 g/dl (32.0-37.0); MONOCYTE # 0.4 10^3/ul (0.3-0.9); MONOCYTES % 13.9 % (0.0-11.0); NEUTROPHIL # 2.1 10^3/ul (1.6-7.5); NEUTROPHILS % 69.9 % (39.0-77.0); PLATELET COUNT 195 10^3/UL (140-415); RED BLOOD COUNT 3.51 10^6/ul (4.70-6.10); RED CELL DISTRIBUTION WIDTH 14.8 % (11.5-14.5)
[2016-10-06 10:43] LABS: ALBUMIN 3.5 g/dl (3.3-4.9); ALBUMIN/GLOBULIN RATIO 1.45; BILIRUBIN,INDIRECT 0.1 mg/dl (0-1.1); BILIRUBIN,TOTAL 0.1 mg/dl (0.2-1.3); CALCIUM 8.9 mg/dl (8.4-10.2); CREATININE 0.94 mg/dl (0.61-1.24); MAGNESIUM 1.8 mg/dl (1.7-2.5); POTASSIUM 4.2 mmol/L (3.5-5.1); TOTAL PROTEIN 5.9 g/dl (6.1-8.1)
== END | disposition home or self-care (01) ==
LOC: LAB 09:37
PROVIDERS: ATTEND Internal Medicine
DX: I48.91 Unspecified atrial fibrillation (principal)
CPT/HCPCS: 80053; 83735; 85025

== ENCOUNTER → 2016-10-06 | Outpatient (CLI) | payer BC ==
[2016-10-06 10:22] LABS: ADD UMIC YES; UR ASCORBIC ACID NEGATIVE (NEGATIVE); UR BILIRUBIN (Dip) NEGATIVE (NEGATIVE); UR BLOOD (Dip) 1+ mg/dL (NEGATIVE); UR CLARITY CLEAR (CLEAR); UR COLOR STRAW (YELLOW); UR GLUCOSE (Dip) NEGATIVE (NEGATIVE); UR KETONES (Dip) NEGATIVE (NEGATIVE); UR LEUKOCYTE ESTERASE (Dip) TRACE Leu/ul (NEGATIVE); UR NITRITE (Dip) NEGATIVE (NEGATIVE); UR RBC 3 /HPF (0-5); UR SPECIFIC GRAVITY (Dip) 1.008 (1.003-1.030); UR TOTAL PROTEIN (Dip) 2+ mg/dl (NEGATIVE); UR UROBILINOGEN (Dip) NEGATIVE (NEGATIVE)
== END | disposition home or self-care (01) ==
LOC: LAB 09:29
PROVIDERS: ATTEND Specialist
DX: M32.9 Systemic lupus erythematosus, unspecified (principal)
CPT/HCPCS: 81001; 85651; 86140

== ENCOUNTER → 2016-11-05 | Outpatient (CLI) | payer BC ==
[2016-11-05 08:44] LABS: ABNORMAL IP MESSAGE 1; ADD UMIC YES; EOSINOPHILS % 0.4 % (0.0-7.0); HEMATOCRIT 35.5 % (42.0-52.0); HEMOGLOBIN 11.5 g/dl (14.0-18.0); LYMPHOCYTES # 0.5 10^3/ul (0.8-2.9); LYMPHOCYTES % 19.2 % (15.0-51.0); MEAN CORPUSCULAR HEMOGLOBIN 29.4 pg (29.0-33.0); MEAN CORPUSCULAR HGB CONC 32.4 g/dl (32.0-37.0); MEAN CORPUSCULAR VOLUME 90.8 fl (82.0-101.0); MEAN PLATELET VOLUME 9.9 fl (7.4-10.4); MONOCYTE # 0.4 10^3/ul (0.3-0.9); MONOCYTES % 15.3 % (0.0-11.0); NEUTROPHIL # 1.6 10^3/ul (1.6-7.5); NEUTROPHILS % 63.1 % (39.0-77.0); PLATELET COUNT 192 10^3/UL (140-415); POSITIVE DIFF @See below; RED BLOOD COUNT 3.91 10^6/ul (4.70-6.10); RED CELL DISTRIBUTION WIDTH 13.7 % (11.5-14.5); UR ASCORBIC ACID NEGATIVE (NEGATIVE); UR BILIRUBIN (Dip) NEGATIVE (NEGATIVE); UR BLOOD (Dip) 2+ mg/dL (NEGATIVE); UR CLARITY SLIGHTLY CLOUDY (CLEAR); UR COLOR YELLOW (YELLOW); UR GLUCOSE (Dip) NEGATIVE (NEGATIVE); UR KETONES (Dip) NEGATIVE (NEGATIVE); UR LEUKOCYTE ESTERASE (Dip) TRACE Leu/ul (NEGATIVE); UR NITRITE (Dip) NEGATIVE (NEGATIVE); UR RBC 7 /HPF (0-5); UR SPECIFIC GRAVITY (Dip) 1.018 (1.003-1.030); UR TOTAL PROTEIN (Dip) 2+ mg/dl (NEGATIVE); UR UROBILINOGEN (Dip) NEGATIVE (NEGATIVE); WHITE BLOOD COUNT 2.6 10^3/ul (4.8-10.8)
[2016-11-05 09:02] LABS: ALBUMIN 3.2 g/dl (3.3-4.9); ALBUMIN/GLOBULIN RATIO 1.1; CALCIUM 8.3 mg/dl (8.4-10.2); CREATININE 1.17 mg/dl (0.61-1.24); POTASSIUM 4.1 mmol/L (3.5-5.1); TOTAL PROTEIN 6.1 g/dl (6.1-8.1)
== END | disposition home or self-care (01) ==
LOC: LAB 07:17
PROVIDERS: ATTEND Specialist
DX: M32.9 Systemic lupus erythematosus, unspecified (principal)
CPT/HCPCS: 80053; 81001; 85025; 85651; 86140; 86160

== ENCOUNTER → 2016-11-26 | Outpatient (CLI) | payer BC ==
[2016-11-26 08:39] LABS: ADD UMIC YES; UR ASCORBIC ACID NEGATIVE (NEGATIVE); UR BILIRUBIN (Dip) NEGATIVE (NEGATIVE); UR BLOOD (Dip) 2+ mg/dL (NEGATIVE); UR CLARITY CLEAR (CLEAR); UR COLOR YELLOW (YELLOW); UR GLUCOSE (Dip) NEGATIVE (NEGATIVE); UR KETONES (Dip) NEGATIVE (NEGATIVE); UR LEUKOCYTE ESTERASE (Dip) TRACE Leu/ul (NEGATIVE); UR NITRITE (Dip) NEGATIVE (NEGATIVE); UR RBC 5 /HPF (0-5); UR TOTAL PROTEIN (Dip) 2+ mg/dl (NEGATIVE); UR UROBILINOGEN (Dip) NEGATIVE (NEGATIVE)
[2016-11-26 08:40] LABS: ABNORMAL IP MESSAGE 1; BASOPHILS % 0.4 % (0.0-2.0); HEMATOCRIT 35.2 % (42.0-52.0); HEMOGLOBIN 11.7 g/dl (14.0-18.0); LYMPHOCYTES # 0.5 10^3/ul (0.8-2.9); LYMPHOCYTES % 21.8 % (15.0-51.0); MEAN CORPUSCULAR HEMOGLOBIN 29.8 pg (29.0-33.0); MEAN CORPUSCULAR HGB CONC 33.2 g/dl (32.0-37.0); MEAN CORPUSCULAR VOLUME 89.8 fl (82.0-101.0); MEAN PLATELET VOLUME 9.6 fl (7.4-10.4); MONOCYTE # 0.4 10^3/ul (0.3-0.9); MONOCYTES % 15.9 % (0.0-11.0); NEUTROPHILS % 60.2 % (39.0-77.0); PLATELET COUNT 180 10^3/UL (140-415); POSITIVE DIFF @See below; RED BLOOD COUNT 3.92 10^6/ul (4.70-6.10); RED CELL DISTRIBUTION WIDTH 13.3 % (11.5-14.5); WHITE BLOOD COUNT 2.4 10^3/ul (4.8-10.8)
[2016-11-26 09:13] LABS: ALBUMIN 3.1 g/dl (3.3-4.9); ALBUMIN/GLOBULIN RATIO 1.1; BILIRUBIN,INDIRECT 0.1 mg/dl (0-1.1); BILIRUBIN,TOTAL 0.1 mg/dl (0.2-1.3); CALCIUM 8.3 mg/dl (8.4-10.2); CREATININE 1.1 mg/dl (0.61-1.24); MAGNESIUM 1.8 mg/dl (1.7-2.5); POTASSIUM 3.8 mmol/L (3.5-5.1); TOTAL PROTEIN 5.9 g/dl (6.1-8.1)
== END | disposition home or self-care (01) ==
LOC: LAB 08:04
PROVIDERS: ATTEND Specialist
DX: M32.9 Systemic lupus erythematosus, unspecified (principal)
CPT/HCPCS: 80053; 81001; 83735; 85025; 85651; 86140; 86160

== ENCOUNTER → 2016-12-11 | Outpatient (CLI) | payer BC ==
--- NOTE | 2016-12-11 16:32 | RADRPT ---
Echocardiogram Report Patient Name: VARINDER HOFFMANN Gender: Male Date: 1960 Study Date: 11-Dec-2016 Team [employer]tr Truck Driver: Emeka Higgins RDCS Location: EKG Ref. Physician: IAM MATAMOROS Quality: Good Procedures: Transthoracic echocardiogram with complete 2D, M-Mode, and doppler examination. Indications: Atrial Fibrillation. Hypertension. 2D/M Mode Doppler Measurement Value Normal Ranges Measurement Value Normal Ranges LVIDd 2D 4.7 3.5 - 5.6 cm AV Peak Laurent 1.5 m/sec LVIDs 2D 2.9 2.1 - 4.1 cm AV Peak PG 9.0 mmHg LVPWd 2D 1.2 0.6 - 1.1 cm AI Peak PG 105.6 mmHg IVSd 2D 1.3 0.6 - 1.1 cm AI Peak Laurent 5.1 m/sec AoR Diam 2D 3.4 2.0 - 3.7 cm AI PHT 570.3 msec EDV 2D 103.0 cm3 LVOT Peak Laurent 1.0 m/sec ESV 2D 25.4 cm3 LVOT Peak PG 4.2 mmHg LA Dimen 2D 3.8 2.3 - 4.0 cm TR Peak Laurent 2.8 m/sec TR Peak PG 30.6 mmHg RVSP 34.0 mmHg Findings Left Ventricle: Normal left ventricular systolic function. Normal left ventricular cavity size. Mild concentric left ventricular hypertrophy. Ejection fraction is visually estimated at 65 %. Tissue Doppler/Mitral Doppler indices are indeterminate in this study due to the presence of atrial fibrillation. Right Ventricle: Normal right ventricular size. Normal right ventricular systolic function. Left Atrium: The left atrium is normal in size. Right Atrium: The right atrium is normal in size. Mitral Valve: Mitral valve leaflets appear mildly thickened. Mild mitral annular calcification. Trace mitral regurgitation. Aortic Valve: No hemodynamically significant aortic stenosis by doppler. Aortic sclerosis without stenosis. Trileaflet aortic valve. Mild aortic valve regurgitation. Tricuspid Valve: Normal appearance of the tricuspid valve. Right ventricular systolic pressure is consistent with mild pulmonary hypertension. Estimated peak PA systolic pressure 34 mmHg. There is mild tricuspid regurgitation. Pulmonic Valve: Normal pulmonic valve appearance. There is trace pulmonic regurgitation. Pericardium: Normal pericardium with no significant pericardial effusion. Aorta: Normal aortic root. IVC: Normal size and normal respiratory collapse consistent with normal right atrial pressure. Conclusions Normal left ventricular systolic function. Normal left ventricular cavity size. Mild concentric left ventricular hypertrophy. Ejection fraction is visually estimated at 65 %. Tissue Doppler/Mitral Doppler indices are indeterminate in this study due to the presence of atrial fibrillation. Normal right ventricular size. Normal right ventricular systolic function. The left atrium is normal in size. No hemodynamically significant aortic stenosis by doppler. Aortic sclerosis without stenosis. Trileaflet aortic valve. Mild aortic valve regurgitation. Normal appearance of the tricuspid valve. Right ventricular systolic pressure is consistent with mild pulmonary hypertension. Estimated peak PA systolic pressure 34 mmHg. There is mild tricuspid regurgitation. Normal pericardium with no significant pericardial effusion. Normal size and normal respiratory collapse consistent with normal right atrial pressure. No Vegetation, masses, or thrombi seen. Electronically Signed By: Iam Matamoros 11-Dec-2016 16:32:26 -0700 Patient Name: VARINDER HOFFMANN Study Date: 11-Dec-2016 [id number]
== END | disposition home or self-care (01) ==
LOC: EKG 08:36
PROVIDERS: ATTEND Internal Medicine Interventional Cardiology
DX: I48.91 Unspecified atrial fibrillation (principal); G93.2 Benign intracranial hypertension; I27.2 Other secondary pulmonary hypertension; R60.9 Edema, unspecified
CPT/HCPCS: 93306

== ENCOUNTER 2016-12-26 05:38 | Day surgery (SDC) | payer BC ==
[~2016-12-26] VITALS: Ht 152.4 cm; Wt 68.2 kg
[2016-12-26] VITALS (17 sets, daily range): BP systolic 108–130; BP diastolic 75–85; PULSE 60–78; RESP 16–25
[2016-12-26] MEDS ORDERED: DILT120C77 PO (06:54)
[2016-12-26] MEDS ORDERED: CETI5SOL PO (06:54)
[2016-12-26] MEDS ORDERED: APIX5TAB PO (06:54)
[2016-12-26 07:17] LABS: ABNORMAL IP MESSAGE 1; BASOPHILS % 0.4 % (0.0-2.0); EOSINOPHILS % 0.4 % (0.0-7.0); HEMOGLOBIN 11.7 g/dl (14.0-18.0); LYMPHOCYTES # 0.4 10^3/ul (0.8-2.9); LYMPHOCYTES % 15.9 % (15.0-51.0); MEAN CORPUSCULAR HEMOGLOBIN 29.8 pg (29.0-33.0); MEAN CORPUSCULAR HGB CONC 33.4 g/dl (32.0-37.0); MEAN CORPUSCULAR VOLUME 89.1 fl (82.0-101.0); MONOCYTE # 0.5 10^3/ul (0.3-0.9); MONOCYTES % 18.3 % (0.0-11.0); NEUTROPHIL # 1.6 10^3/ul (1.6-7.5); NEUTROPHILS % 63.4 % (39.0-77.0); PLATELET COUNT 158 10^3/UL (140-415); POSITIVE DIFF @See below; RED BLOOD COUNT 3.93 10^6/ul (4.70-6.10); RED CELL DISTRIBUTION WIDTH 14.3 % (11.5-14.5); WHITE BLOOD COUNT 2.5 10^3/ul (4.8-10.8)
[2016-12-26] MEDS ORDERED: LIDOCAINE 2% (SDV) 5 ML INJ ONE (07:19)
[2016-12-26] MEDS ORDERED: MIDAZOLAM 1 MG/ML 2 ML INJ ONE (07:19)
[2016-12-26] MEDS ORDERED: PROPOFOL 20 ML ONE (07:19)
[2016-12-26 07:24] LABS: HOLD TRANSMISSIONS 1
[2016-12-26 07:39] LABS: INR 0.91; PROTIME 12.2 Sec (12.2-14.2)
--- NOTE | 2016-12-26 07:43 | OPR ---
Date/Time of Note Date/Time of Note DATE: 12/26/16 TIME: 07:39 Operative Report Surgeon see signature line Procedure Description DATE OF OPERATION: 12/26/2016 PROCEDURE PERFORMED: External cardioversion. PRE-PROCEDURE DIAGNOSES: Atrial fibrillation POST-PROCEDURE DIAGNOSIS: Normal sinus rhythm. PRIMARY FIELD RECRUITER: Iam House MD PERFORMING FIELD RECRUITER: Iam House MD HISTORY: Mr. Coughlin is a 56 y.o. with recent diagnosis of atrial fibrillation. The patient has been on anticoagulation consistently for greater than 30 days without missing a dose. He presents today for cardioversion. PROCEDURE DESCRIPTION: The patient brought to the procedure area in a fasting state. Defibrillation pads were placed in anterior, posterior positions. Deep sedation was provided by anesthesia. Please see anesthesia record for further details. The patient was continuously monitored with blood pressure, pulse oximetry, and continuous telemetry. The patient was given 1 synchronized shock of 100 joules with successful conversion to sinus rhythm. He tolerated the procedure well without complication and was recovered by anesthesia and talking and doing well with stable blood pressure prior to discharge. CONCLUSIONS: Status post external cardioversion from atrial fibrillation to sinus rhythm. RECOMMENDATIONS: 1. Continue cardizem 2. Continue eliquis 5mg po bid 3. Followup as outpatient. IAM HOUSE Dec 26, 2016 07:43
--- NOTE | 2016-12-26 07:44 | PDOCDIS ---
Discharge Instructions DIAGNOSIS Discharge Diagnosis Atrial fibrillation with successful cardioversion to NSR CONDITION Patient Condition: Good HOME CARE INSTRUCTIONS: Diet Instructions: Regular ACTIVITY: Activity Restrictions: No Restrictions FOLLOW UP/APPOINTMENTS Follow-up Plan as scheduled with Dr. House SCHOOL/WORK RELEASE May return to School/Work with: No Restrictions [facility] Dec 26, 2016 07:44
[2016-12-26 07:45] LABS: POTASSIUM 3.9 mmol/L (3.5-5.1)
[2016-12-26 07:46] LABS: CALCIUM 8.3 mg/dl (8.4-10.2); CREATININE 1.12 mg/dl (0.61-1.24)
[2016-12-26] MEDS ORDERED: APIXABAN 5 MG TABLET PO ONE (08:00)
[2016-12-26] MEDS ORDERED: ONDANSETRON 4 MG INJ IV PRN ×2 (08:00→08:30)
[2016-12-26] MEDS ORDERED: ACETAMINOPHEN 325 MG TAB PO PRN (08:00)
[2016-12-26] MEDS ORDERED: AL HYDROX/MG HYDROX/SIMETH 30 ML CUP PO PRN (08:00)
[2016-12-26] MEDS ORDERED: METOCLOPRAMIDE 10 MG INJ IV PRN (08:30)
--- NOTE | 2016-12-26 20:18 | RADRPT ---
Vent Rate: 72 bpm RR Interval: 0 msec AR Interval: 0 msec QRS Duration: 100 msec QT Interval: 386 msec QTC Interval: 422 msec P-R-T [place]: 0 - 0 - 29 degrees Atrial fibrillation Minimal voltage criteria for LVH, may be normal variant Abnormal ECG Electronically Signed By: Tavon Melgar [id number]
--- NOTE | 2016-12-26 20:18 | RADRPT ---
Vent Rate: 73 bpm RR Interval: 0 msec IN Interval: 178 msec QRS Duration: 102 msec QT Interval: 392 msec QTC Interval: 431 msec P-R-T [place]: 50 - -3 - 30 degrees Normal sinus rhythm Minimal voltage criteria for LVH, may be normal variant Borderline ECG Electronically Signed By: Tavon Melgar [id number]
== END 2016-12-26 09:38 | disposition home or self-care (01) ==
LOC: SDS 05:38 → CCL 05:40 → SDS 09:38
PROVIDERS: ATTEND Internal Medicine Interventional Cardiology
DX: I48.91 Unspecified atrial fibrillation (principal); I12.9 Hypertensive chronic kidney disease with stage 1 through stage 4 chronic kidney disease, or unspecified chronic kidney disease; N18.9 Chronic kidney disease, unspecified; I73.9 Peripheral vascular disease, unspecified
CPT/HCPCS: 80048; 85025; 85610; 92961; 93005; J2250

== ENCOUNTER → 2017-01-13 | Outpatient (CLI) | payer BC ==
[~2017-01-13] MED LIST changes: +APIX5TAB PO; +CETI5SOL PO; +DILT120C77 PO; +METO-319 PO; -METO50TA16 PO
[2017-01-13 08:06] LABS: ABNORMAL IP MESSAGE 1; BASOPHILS % 0.4 % (0.0-2.0); EOSINOPHILS % 0.8 % (0.0-7.0); HEMOGLOBIN 11.5 g/dl (14.0-18.0); LYMPHOCYTES # 0.4 10^3/ul (0.8-2.9); LYMPHOCYTES % 15.8 % (15.0-51.0); MEAN CORPUSCULAR HGB CONC 32.9 g/dl (32.0-37.0); MEAN CORPUSCULAR VOLUME 88.4 fl (82.0-101.0); MEAN PLATELET VOLUME 9.4 fl (7.4-10.4); MONOCYTE # 0.4 10^3/ul (0.3-0.9); MONOCYTES % 16.6 % (0.0-11.0); NEUTROPHIL # 1.7 10^3/ul (1.6-7.5); NEUTROPHILS % 64.5 % (39.0-77.0); PLATELET COUNT 169 10^3/UL (140-415); POSITIVE DIFF @See below; RED BLOOD COUNT 3.96 10^6/ul (4.70-6.10); RED CELL DISTRIBUTION WIDTH 14.3 % (11.5-14.5); WHITE BLOOD COUNT 2.7 10^3/ul (4.8-10.8)
[2017-01-13 08:12] LABS: ADD UMIC YES; UR ASCORBIC ACID NEGATIVE (NEGATIVE); UR BACTERIA FEW /HPF (NONE SEEN); UR BILIRUBIN (Dip) NEGATIVE (NEGATIVE); UR BLOOD (Dip) 2+ mg/dL (NEGATIVE); UR CLARITY CLEAR (CLEAR); UR COLOR YELLOW (YELLOW); UR GLUCOSE (Dip) NEGATIVE (NEGATIVE); UR KETONES (Dip) NEGATIVE (NEGATIVE); UR LEUKOCYTE ESTERASE (Dip) NEGATIVE Leu/ul (NEGATIVE); UR MUCUS FEW /HPF (NONE SEEN); UR NITRITE (Dip) NEGATIVE (NEGATIVE); UR RBC 5 /HPF (0-5); UR SPECIFIC GRAVITY (Dip) 1.018 (1.003-1.030); UR TOTAL PROTEIN (Dip) 2+ mg/dl (NEGATIVE); UR UROBILINOGEN (Dip) NEGATIVE (NEGATIVE)
[2017-01-13 08:31] LABS: ALBUMIN 3.2 g/dl (3.3-4.9); ALBUMIN/GLOBULIN RATIO 1.06; BILIRUBIN,INDIRECT 0.2 mg/dl (0-1.1); BILIRUBIN,TOTAL 0.2 mg/dl (0.2-1.3); CALCIUM 8.4 mg/dl (8.4-10.2); CREATININE 1.07 mg/dl (0.61-1.24); MAGNESIUM 1.6 mg/dl (1.7-2.5); POTASSIUM 3.7 mmol/L (3.5-5.1); TOTAL PROTEIN 6.2 g/dl (6.1-8.1)
== END | disposition home or self-care (01) ==
LOC: LAB 07:46
PROVIDERS: ATTEND Specialist
DX: M32.9 Systemic lupus erythematosus, unspecified (principal)
CPT/HCPCS: 80053; 81001; 83735; 85025; 85651; 86140; 86160

== ENCOUNTER → 2017-02-25 | Outpatient (CLI) | payer BC ==
[2017-02-25 08:56] LABS: ABNORMAL IP MESSAGE 1; BASOPHILS % 0.4 % (0.0-2.0); EOSINOPHILS % 0.8 % (0.0-7.0); HEMOGLOBIN 11.2 g/dl (14.0-18.0); LYMPHOCYTES # 0.4 10^3/ul (0.8-2.9); LYMPHOCYTES % 15.9 % (15.0-51.0); MEAN CORPUSCULAR HEMOGLOBIN 30.4 pg (29.0-33.0); MEAN CORPUSCULAR HGB CONC 32.9 g/dl (32.0-37.0); MEAN CORPUSCULAR VOLUME 92.1 fl (82.0-101.0); MEAN PLATELET VOLUME 9.4 fl (7.4-10.4); MONOCYTE # 0.4 10^3/ul (0.3-0.9); MONOCYTES % 17.9 % (0.0-11.0); NEUTROPHIL # 1.5 10^3/ul (1.6-7.5); NEUTROPHILS % 60.5 % (39.0-77.0); PLATELET COUNT 205 10^3/UL (140-415); POSITIVE DIFF @See below; RED BLOOD COUNT 3.69 10^6/ul (4.70-6.10); RED CELL DISTRIBUTION WIDTH 15.1 % (11.5-14.5); WHITE BLOOD COUNT 2.5 10^3/ul (4.8-10.8)
[2017-02-25 09:05] LABS: ADD UMIC YES; UR ASCORBIC ACID 20 mg/dL (NEGATIVE); UR BILIRUBIN (Dip) NEGATIVE (NEGATIVE); UR BLOOD (Dip) 1+ mg/dL (NEGATIVE); UR CLARITY CLEAR (CLEAR); UR COLOR YELLOW (YELLOW); UR GLUCOSE (Dip) NEGATIVE (NEGATIVE); UR KETONES (Dip) NEGATIVE (NEGATIVE); UR LEUKOCYTE ESTERASE (Dip) NEGATIVE Leu/ul (NEGATIVE); UR NITRITE (Dip) NEGATIVE (NEGATIVE); UR RBC 4 /HPF (0-5); UR SPECIFIC GRAVITY (Dip) 1.017 (1.003-1.030); UR TOTAL PROTEIN (Dip) 2+ mg/dl (NEGATIVE); UR UROBILINOGEN (Dip) NEGATIVE (NEGATIVE)
[2017-02-25 09:18] LABS: ALBUMIN 3.3 g/dl (3.3-4.9); ALBUMIN/GLOBULIN RATIO 1.17; BILIRUBIN,INDIRECT 0.2 mg/dl (0-1.1); BILIRUBIN,TOTAL 0.2 mg/dl (0.2-1.3); CALCIUM 8.7 mg/dl (8.4-10.2); CREATININE 1.09 mg/dl (0.61-1.24); POTASSIUM 3.9 mmol/L (3.5-5.1); TOTAL PROTEIN 6.1 g/dl (6.1-8.1)
== END | disposition home or self-care (01) ==
LOC: LAB 08:19
PROVIDERS: ATTEND Specialist
DX: M32.9 Systemic lupus erythematosus, unspecified (principal)
CPT/HCPCS: 80053; 81001; 82652; 85025; 85651; 86140; 86160

== ENCOUNTER → 2017-03-10 | Outpatient (CLI) | payer BC ==
[2017-03-10 17:04] LABS: PROTEIN/CREAT RATIO 2.39 RATIO
== END | disposition home or self-care (01) ==
LOC: LAB 16:06
PROVIDERS: ATTEND Internal Medicine
DX: N04.9 Nephrotic syndrome with unspecified morphologic changes (principal)
CPT/HCPCS: 81003; 82570

== ENCOUNTER → 2017-04-20 | Outpatient (CLI) | END | disposition home or self-care (01) ==

== ENCOUNTER → 2017-06-03 | Outpatient (CLI) | END | disposition home or self-care (01) ==

== ENCOUNTER → 2017-07-20 | Outpatient (CLI) | END | disposition home or self-care (01) ==

== ENCOUNTER → 2017-09-08 | Outpatient (CLI) | END | disposition home or self-care (01) ==

== ENCOUNTER → 2017-10-20 | Outpatient (CLI) | END | disposition home or self-care (01) ==

== ENCOUNTER → 2017-12-09 | Outpatient (CLI) | END | disposition home or self-care (01) ==

== ENCOUNTER → 2018-01-21 | Outpatient (CLI) | END | disposition home or self-care (01) ==

== ENCOUNTER → 2018-04-23 | Outpatient (CLI) | payer BC ==
[~2018-04-23] MED LIST changes: +ACYC800T5 PO; +BENA20TA4 PO; -BENA20TA48 PO; +DIPH28.33 TP; +MYCO500T PO; -MYCO500T13 PO
== END | disposition home or self-care (01) ==
LOC: LAB 08:51
PROVIDERS: ATTEND Internal Medicine
DX: M32.14 Glomerular disease in systemic lupus erythematosus (principal); I10 Essential (primary) hypertension
CPT/HCPCS: 80053; 80061; 81001; 81003; 82570; 84153; 84154; 84443; 85025; 85651; 86140; 86160

== ENCOUNTER 2018-05-09 16:32 | Emergency (ER) | payer BC ==
[~2018-05-09] VITALS: Ht 167.6 cm; Wt 80.8 kg
[~2018-05-09 16:32] MED LIST changes: -ACYC800T5 PO; -DIPH28.33 TP
[2018-05-09 16:45] VITALS: Ht 167.6 cm; Wt 80.8 kg
--- NOTE | 2018-05-09 19:36 | ERD ---
ER Documentation Chief Complaint Chief Complaint Complains of flank pain x 2 days HPI This is a 57-year-old male with a prior history of lupus, on 5 mg daily, of prednisone, who presents for evaluation of a rash on his left side, it is itchy and painful. He called his electrical troubleshooter today, who thought it might be s hingles and recommended that he present to the ED to get prescription for antiviral. Patient denies fevers, he denies systemic symptoms. ROS All systems reviewed and are negative except as per history of present illness. Medications Home Meds Active Scripts Diphenhydramine Hcl/Zinc Acet (Benadryl Itch Stopping Crm) 28.3 Gm Cream.gm., 1 APPLIC TP TID PRN for ITCHING, #1 TUB Prov:CLAUDIA PACHECO MD 05/09/18 Acyclovir* (Zovirax*) 800 Mg Tablet, 800 MG PO 5 TIMES DAILY for 7 Days, TAB Prov:CLAUDIA PACHECO MD 05/09/18 Prednisone* (Prednisone*) 20 Mg Tab, 20 MG PO DAILY for 10 Days, TAB Prov:CLAUDIA MOORE MD 04/14/15 Reported Medications Cetirizine Hcl* (Cetirizine Hcl*) 5 Mg/5 Ml Solution, 10 MG PO DAILY, #300 ML 12/26/16 Diltiazem Hcl* (Cardizem CD*) 120 Mg Cap.sr.24h, 120 MG PO BID, #30 CAP 12/26/16 Apixaban* (Eliquis*) 5 Mg Tablet, 10 MG PO BID, TAB 12/26/16 Metoprolol Succinate* (Toprol XL*) 50 Mg Tab.er.24h, 75 MG PO BID, #30 TAB 08/27/16 Mycophenolate Mofetil* (Cellcept*) 500 Mg Tablet, 1000 MG PO HS, #120 TAB 08/27/16 Mycophenolate Mofetil* (Cellcept*) 500 Mg Tablet, 1500 MG PO AM, #120 TAB 08/27/16 Zolpidem Tartrate* (Zolpidem Tartrate*) 5 Mg Tablet, 5 MG PO QHS PRN for INSOMNIA, #30 TAB 08/27/16 Benazepril Hcl* (Benazepril Hcl*) 20 Mg Tablet, 20 MG PO DAILY, #30 TAB 08/11/16 Allergies Allergies: Coded Allergies: No Known Allergy (Unverified , 10/25/11) PMhx/Soc History of Surgery: No Anesthesia Reaction: No Hx Neurological Disorder: No Hx Respiratory Disorders: No Hx Cardiac Disorders: Yes (AFIB, HTN) Hx Psychiatric Problems: No Hx Alcohol Use: No Hx Substance Use: No Hx Tobacco Use: No Physical Exam Vitals Vital Signs Date Temp Pulse Resp B/P (MAP) Pulse Ox O2 O2 Flow FiO2 Time Delivery Rate 05/09/18 99.0 78 20 163/85 97 16:45 (111) Physical Exam Const: Afebrile, nontoxic Head: Atraumatic Eyes: Normal Conjunctiva ENT: Normal External Ears, Nose and Mouth. Neck: Full range of motion. No meningismus. Resp: Clear to auscultation bilaterally Cardio: Regular rate and rhythm, no murmurs Abd: Soft, non tender, non distended. Normal bowel sounds Skin: There is a vesicular rash and multiple stages, over a dermatome pattern on the left flank, there are no fluctuant masses. Back: No midline or flank tenderness Ext: No cyanosis, or edema Neur: Awake and alert Psych: Normal Mood and Affect Procedures/MDM 57-year-old male presents for evaluation of rash, most consistent with shingles, he has no evidence of MILIEU COORDINATOR or other systemic symptoms, he is afebrile and nontoxic-appearing, he will be started on acyclovir at 7 days, I would defer to his electrical troubleshooter who he will be contacting tomorrow for any changes in his steroids, the patient is comfortable with this advised to return for fever, spreading rash or any worsening symptoms, at discharge she was in no acute distress. Departure Diagnosis: Primary Impression: Shingles Herpes zoster complications: without complications Qualified Codes: B02.9 - Zoster without complications Condition: Stable CLAUDIA PACHECO MD May 09, 2018 19:36
[2018-05-09 20:00] VITALS: BP 135/78; PULSE 84; RESP 18
[2018-05-09] MEDS ORDERED: DIPH28.33 TP (20:01)
[2018-05-09] MEDS ORDERED: ACYC800T5 PO (20:01)
== END 2018-05-09 20:46 | disposition home or self-care (01) ==
LOC: E/R 16:32
DX: B02.9 Zoster without complications (principal); I10 Essential (primary) hypertension
CPT/HCPCS: 99282

== ENCOUNTER → 2018-07-05 | Outpatient (CLI) | payer BC ==
[~2018-07-05] MED LIST changes: +ACYC800T5 PO; +DIPH28.33 TP
== END | disposition home or self-care (01) ==
LOC: LAB 08:36
PROVIDERS: ATTEND Specialist
DX: M32.9 Systemic lupus erythematosus, unspecified (principal); N05.9 Unspecified nephritic syndrome with unspecified morphologic changes
CPT/HCPCS: 80053; 81001; 85025; 85651; 86140; 86160

== ENCOUNTER → 2018-09-07 | Outpatient (CLI) | payer BC | END | disposition home or self-care (01) | LOC: LAB 07:22 | PROVIDERS: ATTEND Specialist | DX: M32.14 Glomerular disease in systemic lupus erythematosus (principal); E78.5 Hyperlipidemia, unspecified | CPT/HCPCS: 80053; 80061; 81001; 81003; 84155; 85025; 85651; 86140; 86160; 86226 ==

== ENCOUNTER → 2018-10-15 | Outpatient (CLI) | payer BC | END | disposition home or self-care (01) | LOC: LAB 07:41 | PROVIDERS: ATTEND Internal Medicine | DX: M32.9 Systemic lupus erythematosus, unspecified (principal); N05.9 Unspecified nephritic syndrome with unspecified morphologic changes | CPT/HCPCS: 80053; 81001; 81003; 82570; 82652; 82728; 83540; 83970; 85025; 85651; 86140; 86160 ==

== ENCOUNTER → 2018-11-15 | Outpatient (CLI) | payer BC | END | disposition home or self-care (01) | LOC: LAB 08:07 | PROVIDERS: ATTEND Internal Medicine | DX: M32.9 Systemic lupus erythematosus, unspecified (principal); N05.9 Unspecified nephritic syndrome with unspecified morphologic changes | CPT/HCPCS: 80053; 81001; 81003; 82570; 83735; 84100; 85025 ==

== ENCOUNTER → 2018-12-07 | Outpatient (CLI) | payer BC | END | disposition home or self-care (01) | LOC: LAB 08:02 | PROVIDERS: ATTEND Internal Medicine | DX: M32.14 Glomerular disease in systemic lupus erythematosus (principal) | CPT/HCPCS: 80053; 81001; 81003; 82570; 85025; 85651; 86140; 86160 ==